=== PATIENT | male | born 1975 ===

== ENCOUNTER 2021-01-06 15:21 | Outpatient (REF) | payer MEDICAID, OTHER, SELFPAY ==
--- NOTE | ~2021-01-06 | US_ITS ---
EXAMINATION: US ABDOMEN COMPLETE CLINICAL INFORMATION: Abnormal results of LFTs. COMPARISON: None TECHNIQUE: Real-time imaging of the abdominal viscera. Technically limited study secondary to bowel gas. FINDINGS: PANCREAS: Not well visualized due to bowel gas. ABDOMINAL AORTA: The proximal abdominal aorta is not well visualized. The mid distal segments are normal in caliber. INFERIOR VENA CAVA: Not well visualized LIVER: The liver is normal in size. The liver contour is normal. Liver echotexture is increased suggestive of fatty infiltration. There are hypoechoic areas adjacent to the gallbladder, a characteristic location of focal fatty sparing. No other focal hepatic lesion. There is no intrahepatic biliary duct dilatation seen. GALLBLADDER: Normal. The gallbladder is physiologically distended without evidence of stones, sludge, polyps, wall thickening or pericholecystic fluid. COMMON BILE DUCT: Not well visualized. The visualized common bile duct is normal in caliber measuring 0.5 cm in diameter. RIGHT KIDNEY: Normal. No hydronephrosis. No renal calculi or focal parenchymal lesions. The kidney measures 11.6 cm in maximum dimension. LEFT KIDNEY: Normal. No hydronephrosis. No renal calculi or focal parenchymal lesions. The kidney measures 11.0 cm in maximum dimension. SPLEEN: Normal. The spleen measures 11.0 cm in maximum dimension. FREE FLUID: None. US/US abdomen complete IMPRESSION: Echogenic liver suggestive of fatty infiltration. Limited visualization of the pancreas, aorta, IVC and common bile duct.
== END 2021-01-06 15:22 | disposition home or self-care (01) ==
LOC: HO.HMGCX 15:21
PROVIDERS: PCP Student in an Organized Health Care Education/Training Program; Visit Provider Internal Medicine
DX: R94.5 Abnormal results of liver function studies (principal)
CPT/HCPCS: 76700

== ENCOUNTER 2023-02-21 09:27 | Outpatient (REF) | payer MEDICAID, OTHER, SELFPAY | END 2023-02-21 09:28 | disposition home or self-care (01) | LOC: HO.CHCLNP 09:27 | PROVIDERS: Visit Provider Registered Nurse | DX: K21.9 Gastro-esophageal reflux disease without esophagitis (principal); Z86.19 Personal history of other infectious and parasitic diseases | CPT/HCPCS: 87338 ==

== ENCOUNTER 2023-02-25 06:49 | Emergency (ER) | payer MEDICAID, OTHER, SELFPAY ==
--- NOTE | ~2023-02-25 | CT_ITS ---
EXAMINATION: CT ABDOMEN AND PELVIS WITH CONTRAST CLINICAL INFORMATION: Rectal pain COMPARISON: None available. TECHNIQUE: Multidetector volumetric images were obtained from the superior aspect of the liver through the pubic symphysis following administration 85 mL of Omnipaque 350 intravenous contrast. Sagittal and coronal reformatted images were obtained on the technologist's workstation. Oral contrast: No This CT examination was performed using dose optimization techniques as appropriate, variously including the following: *Automated exposure control *Adjustment of mA and/or kV according to patient size (this includes techniques or standardized protocols for targeted exams where dose is matched to indication/reason for exam; i.e. extremities or head) *Use of iterative reconstruction technique DLP: 618 mGy-cm FINDINGS: LUNG BASES: Granuloma of the right middle lobe. Small atelectatic changes of the right lower lobe. LIVER, GALLBLADDER, AND BILIARY TREE: Tiny hepatic hypodense foci, too small to characterize. The gallbladder is unremarkable with no evidence of radiopaque gallstones, gallbladder wall thickening, or obvious pericholecystic inflammatory changes. PANCREAS: Unremarkable. SPLEEN: Unremarkable. ADRENAL GLANDS: Unremarkable. KIDNEYS AND URETERS: Tiny nephrolith in the lower pole of the right kidney, nonobstructive. BLADDER: Unremarkable. GASTROINTESTINAL TRACT: Appendix and distal ileum unremarkable. No distinct colonic inflammatory process. No definite evidence for rectal wall thickening. Small sliding-type hiatal hernia. No small bowel obstructive process or abnormal omental thickening. ABDOMINAL WALL: No significant hernia is appreciated. LYMPH NODES: No suspiciously enlarged lymphadenopathy. VASCULAR: Unremarkable. PELVIC VISCERA: No suspicious pelvic masses. OSSEOUS STRUCTURES: Spondylitic change, without any acute compression fractures. Occasional sclerotic foci of bone likely related to bone islands. CT/CT abdomen pelvis w IV con IMPRESSION: No appreciable acute colonic inflammatory process. No definite evidence for rectal wall thickening. Tiny nephrolith in the lower pole of the right kidney, nonobstructive. Other incidental findings as noted above. Fleischner guidelines were followed.
[2023-02-25 06:59] VITALS: BP 149/99; PULSE 101; RESP 16; TEMP 36.4; O2SAT 97; BMI 31.2
--- NOTE | 2023-02-25 07:18 | ED_ITS ---
HPI - General Adult General Chief complaint: General Medical Stated complaint: pain when defecating? liquid stool Time Seen by Provider: 02/25/23 07:04 Source: patient and medical services manager Mode of arrival: ambulatory Limitations: no limitations History of Present Illness HPI narrative: 47 yo male with PMH of gastritis and HTN who notes receptive anal sex about 1 month ago did use a condom now reports anal leakage and rectal burning and pain with some lower abdominal discomfort. This has never happened before. No fevers, n/v/d. He notes his rectum just leaks and he feels uncomfortable. MD complaint: anal pain Onset (ago): week(s) (1) Location: buttocks Radiation: non-radiation Severity: moderate Quality: burning Pain Consistency: intermittent Relieving factors: none Exacerbating factors: other (bowel movement) Associated symptoms: other (abdominal pain) Treatments prior to arrival: none Related Data Previous Rx's Medication Instructions Recorded doxycycline hyclate 100 mg capsule 100 mg PO BID 7 days #14 caps 02/25/23 ondansetron 4 mg disintegrating 4 mg PO Q8H PRN nausea and 02/25/23 tablet vomiting #20 tabs Allergies Allergy/AdvReac Type Severity Reaction Status Date / Time No Known Allergies Allergy Verified 02/25/23 07:03 Review of Systems 2 Review of Systems: Constitutional : No Weight loss, No Fever, No Chills ENT/Mouth : No sore throat, No Rhinorrhea Eyes: No Swelling, No Redness Cardiovascular : No Chest Pain, No SOB, NoEdema Respiratory : No Cough, No Sputum, No Wheezing Gastrointestinal : no Nausea, no Vomiting, no Diarrhea, positive abdominal Pain, No Hematochezia, No Melena, pos rectal pain Genitourinary : No Dysuria, No Urinary Frequency, No Hematuria, No Urgency Musculoskeletal : No joint pain, No Myalgias, No Joint Swelling Skin : No Skin Lesions, No rash Neuro : No Weakness, No Numbness, No Dizziness, No Headache Psych : No Anxiety/Panic, No Depression All other systems reviewed and are negative. [facility] Past Medical History Attestation statement: The following information was validated with the patient. Medical History Gastritis HTN (hypertension) Social History (Updated 02/25/23 @ 07:35 by Meme Watson DO) Patient Tobacco Use Status: Never used Tobacco Advance Directives: No Physical Exam ED Vital Signs: Vital Signs - 24 hr 02/25/23 06:59 02/25/23 10:19 02/25/23 12:11 Temperature 97.5 F Pulse Rate 101 H 66 89 Respiratory Rate 16 14 16 Blood Pressure 149/99 H 133/86 129/88 Pulse Oximetry 97 96 97 Oxygen Delivery Method Room Air Room Air Room Air BMI result Body Mass Index 31.2 Appearance: Alert. Oriented X3. No acute distress. Eyes: Pupils equal, round and reactive to light. ENT: Pharynx normal. Neck: Normal inspection. Neck supple. CVS: Normal heart rate and rhythm. Pulses normal. Respiratory: No respiratory distress. Breath sounds normal. Abdomen: Soft and nontender. Rectal: normal exam no mass seen no drainage on exam nontender mucosa is normal Skin: Skin warm and dry. Normal skin color. Normal skin turgor. Extremities: No lower extremity edema. No calf ttp Neuro: Oriented X 3. No motor deficit. No sensory deficit. Course Course Course Narrative: I think given symptoms would start on ceftriaxone and doxy to cover him can follow up with his doctor Medications Administered Discontinued Medications Generic Name Dose Route Start Last Admin Trade Name Freq PRN Reason Stop Dose Admin Ceftriaxone Sodium 500 mg/ 0 mg 02/25/23 12:01 02/25/23 12:10 Lidocaine HCl 1 ml IM 02/25/23 12:02 1 kit ONCE ONE Administration Doxycycline Monohydrate 100 mg 02/25/23 12:01 02/25/23 12:10 Doxycycline Monohydrate 100 Mg Capsule PO 02/25/23 12:02 100 mg ONCE ONE Administration Iohexol 150 ml 02/25/23 09:16 02/25/23 09:17 Iohexol 350 Mg/Ml 150 Ml Infus..Btl IV 02/25/23 09:17 85 ml ONCE ONE Administration Medical Decision Making Medical Decision Making MDM Narrative: 47 yo male with PMH of HTN, gastritis here with c/o rectal burning and pain with leakage from anus did have anal intercourse about 1 month ago but used a condom. He is not a DM. His exam is normal but pain is internal. At this time will obtain basic labs, CT scan for abscess/proctitis/mass. Differential Diagnosis Differential Diagnoses: The differential diagnosis associated with the presentation includes abscess, mass, proctitis Admission/Observation Consideration of admission/observation: Escalation of care including admission/observation considered CT scan and labs reassuring Lab Data MDM Lab Attestation statement: I reviewed the patient's lab results. 02/25/23 07:31 02/25/23 07:31 Labs: Lab Results 02/25/23 Range/Units 07:31 WBC 5.7 (4.8-10.8) X10*3/uL RBC 5.17 (4.60-5.80) X10*6/uL Hgb 15.9 (14.0-18.0) g/dl Hct 46.0 (42.0-52.0) % MCV 89.0 (80.0-98.0) fL MCH 30.8 (27.0-33.0) pg MCHC 34.6 (31.0-36.0) g/dl RDW 12.4 (11.0-16.0) % Plt Count 175 (160-400) X10*3/uL MPV 9.9 (9.4-12.4) fL Immature Gran % (Auto) 0.2 (0.0-0.4) % Neut % (Auto) 57.7 (45-73) % Lymph % (Auto) 36.4 (20-40) % Swain % (Auto) 4.1 (2-11) % Eos % (Auto) 0.7 (0-4) % Baso % (Auto) 0.9 (0-2) % Lymph # (Auto) 2.1 (1.2-4.9) X10*3/uL Swain # (Auto) 0.2 (0.1-1.2) X10*3/uL Eos # (Auto) 0.0 (0.0-0.4) X10*3/uL Baso # (Auto) 0.1 (0.0-0.2) X10*3/uL Abs Immat Gran (auto) 0.01 (0.00-0.03) X10*3/uL Absolute Neuts (auto) 3.3 (2.0-8.3) x10*3/uL Absolute Nucleated RBC 0.000 (0.0-0.012) X10*3/uL Nucleated RBC % (auto) 0.0 (0.0-0.2) /100WBC Sodium 140 (135-145) mmol/L Potassium 3.6 (3.3-5.1) mmol/L Chloride 101 (96-108) mmol/L Carbon Dioxide 30 H (22-29) mmol/L Anion Gap 13 (12-20) BUN 15 (9-16) mg/dL Creatinine 0.87 (0.5-1.4) mg/dL Estim Creat Clear Calc 100.6 Estimated GFR > 60 Random Glucose 137 H (60-115) mg/dL Calcium 9.9 (8.4-10.2) mg/dL Total Bilirubin 1.0 (0.0-1.0) mg/dL Direct Bilirubin 0.3 (0.0-0.5) mg/dL AST 15 (5-37) U/L ALT 25 (0-40) U/L Alkaline Phosphatase 94 (39-117) U/L Total Protein 8.2 H (6.5-8.0) g/dL Albumin 4.7 (3.5-5.0) g/dL Independent Interpretation I performed an independent interpretation of an: CT Scan (no inflammation) Radiology Impression Discussion of test interpretation with radiology: I have reviewed the radiologist's reading. Prescription Management I considered prescription management with: Antibiotic Discharge Plan Discharge Clinical Impression: Pain in rectum Patient Disposition: Home, Self-Care Instructions: Proctitis (ED), Rectal Pain (ED) Additional Instructions: return for worsening pain, fevers, vomiting, bloody stools, take your antibiotic with a full meal and large glass of water, never on empty stomach. will treat for possible reaction or symptoms due to anal sex. always practice safe sex. On doxycycline, do not take pills immediately before going to bed and swallow pills with plenty of water. Avoid direct sunlight, iron, antacids, and Pepto Bismol. Call your provider if you develop new ringing in your ears, new problems hearing, dizziness, difficulty swallowing, rash, abdominal discomfort, nausea, or diarrhea.? Si regresa si el dolor empeora, tiene fiebre, v?mitos o heces con laura, tome el antibi?ladarius con akin comida completa y un vaso rex de agua, nunca con el est?slim vac?o. Tratar? posibles reacciones o s?ntomas debido al sexo anal. Practique siempre el sexo seguro. En el ranjeet de doxiciclina, no tome las pastillas inmediatamente antes de acostarse y tr?guelas con abundante agua. Evite la gilberto solar directa, el yadira, los anti?cidos y el Pepto Bismol. Llame a salgado proveedor si presenta nuevos zumbidos en los o?dos, nuevos problemas de audici?n, mareos, dificultad para tragar, sarpullido, malestar abdominal, n?useas o diarrea. Prescriptions: New doxycycline hyclate 100 mg capsule 100 mg PO BID 7 Days Qty: 14 0RF ondansetron 4 mg tablet,disintegrating 4 mg PO Q8H PRN (Reason: nausea and vomiting) Qty: 20 0RF Interventions: ED Discharge Assessment Last Done: 02/25/23 12:20 Discharge Date/Time: 02/25/23 12:22 Print Language: Sinhala
[2023-02-25 07:36] LABS: MANUAL DIFF FLAG NO
[2023-02-25 07:40] LABS: Basophils Absolute Auto 0.1 X10*3/uL (0.0-0.2); Basophils Percent Auto 0.9 % (0-2); Eosinophils Percent Auto 0.7 % (0-4); Hemoglobin 15.9 g/dl (14.0-18.0); Imm Gran Abs Auto 0.01 X10*3/uL (0.00-0.03); Imm Gran Pct Auto 0.2 % (0.0-0.4); Lymphocytes Absolute Auto 2.1 X10*3/uL (1.2-4.9); Lymphocytes Percent Auto 36.4 % (20-40); Mean Corpuscular HGB Conc 34.6 g/dl (31.0-36.0); Mean Corpuscular Hemoglobin 30.8 pg (27.0-33.0); Mean Platelet Volume 9.9 fL (9.4-12.4); Monocytes Absolute Auto 0.2 X10*3/uL (0.1-1.2); Monocytes Percent Auto 4.1 % (2-11); Neutrophils Absolute Auto 3.3 x10*3/uL (2.0-8.3); Neutrophils Percent Auto 57.7 % (45-73); Platelet Count 175 X10*3/uL (160-400); Red Blood Count 5.17 X10*6/uL (4.60-5.80); Red Cell Distribution Width 12.4 % (11.0-16.0); White Blood Count 5.7 X10*3/uL (4.8-10.8)
[2023-02-25 07:50] LABS: Alanine Aminotransferase 25 U/L (0-40); Albumin Level 4.7 g/dL (3.5-5.0); Alkaline Phosphatase 94 U/L (39-117); Anion Gap 13 (12-20); Aspartate Amino Transferase 15 U/L (5-37); Bilirubin Direct 0.3 mg/dL (0.0-0.5); Blood Urea Nitrogen 15 mg/dL (9-16); Calcium 9.9 mg/dL (8.4-10.2); Carbon Dioxide 30 mmol/L (22-29); Chloride 101 mmol/L (96-108); Creatinine Clr Calc Pharmacy 100.6; Estimated Glomerular Filt Rate > 60; Glucose Random 137 mg/dL (60-115); Potassium 3.6 mmol/L (3.3-5.1); Sodium 140 mmol/L (135-145); Total Protein 8.2 g/dL (6.5-8.0)
[2023-02-25 10:19] VITALS: BP 133/86; PULSE 66; RESP 14; O2SAT 96
[2023-02-25] MEDS: Doxycycline Monohydrate 100 MG CAPSULE PO (12:10)
[2023-02-25] MEDS: cefTRIAXone sodium 500 MG, Lidocaine HCl 1 % MPF 1 ML IM (12:10)
[2023-02-25 12:11] VITALS: BP 129/88; PULSE 89; RESP 16; O2SAT 97
== END 2023-02-25 12:22 | disposition home or self-care (01) ==
PROVIDERS: Emergency Provider Emergency Medicine; PCP Student in an Organized Health Care Education/Training Program
DX: K62.89 Other specified diseases of anus and rectum (principal); R10.30 Lower abdominal pain, unspecified; Z79.899 Other long term (current) drug therapy
CPT/HCPCS: 36415; 74177; 80048; 80076; 85025; 96372; 99284; J0696; Q9967

== ENCOUNTER 2023-04-16 05:34 | Emergency (ER) | payer MEDICAID, OTHER, SELFPAY ==
[2023-04-16 05:42] VITALS: BP 148/83; PULSE 80; RESP 18; TEMP 37.1; O2SAT 98; BMI 31.4
[2023-04-16 06:06] LABS: Basophils Percent Auto 0.7 % (0-2); Eosinophils Absolute Auto 0.1 X10*3/uL (0.0-0.4); Eosinophils Percent Auto 1.6 % (0-4); Hematocrit 43.1 % (42.0-52.0); Hemoglobin 15.1 g/dl (14.0-18.0); Imm Gran Abs Auto 0.02 X10*3/uL (0.00-0.03); Imm Gran Pct Auto 0.4 % (0.0-0.4); Lymphocytes Absolute Auto 2.2 X10*3/uL (1.2-4.9); Lymphocytes Percent Auto 39.9 % (20-40); MANUAL DIFF FLAG NO; Mean Corpuscular Volume 88.5 fL (80.0-98.0); Mean Platelet Volume 10.1 fL (9.4-12.4); Monocytes Absolute Auto 0.3 X10*3/uL (0.1-1.2); Monocytes Percent Auto 5.2 % (2-11); Neutrophils Absolute Auto 2.9 x10*3/uL (2.0-8.3); Neutrophils Percent Auto 52.2 % (45-73); Platelet Count 160 X10*3/uL (160-400); Red Blood Count 4.87 X10*6/uL (4.60-5.80); Red Cell Distribution Width 12.3 % (11.0-16.0); White Blood Count 5.6 X10*3/uL (4.8-10.8)
[2023-04-16 06:22] LABS: Alanine Aminotransferase 30 U/L (0-40); Albumin Level 4.3 g/dL (3.5-5.0); Alkaline Phosphatase 110 U/L (39-117); Anion Gap 11 (12-20); Aspartate Amino Transferase 16 U/L (5-37); Bilirubin Total 0.4 mg/dL (0.0-1.0); Blood Urea Nitrogen 16 mg/dL (9-16); Calcium 9.7 mg/dL (8.4-10.2); Carbon Dioxide 29 mmol/L (22-29); Chloride 104 mmol/L (96-108); Creatinine Clr Calc Pharmacy 121.2; Estimated Glomerular Filt Rate > 60; Glucose Random 129 mg/dL (60-115); Lipase 46 U/L (8-78); Potassium 3.9 mmol/L (3.3-5.1); Sodium 140 mmol/L (135-145); Total Protein 7.9 g/dL (6.5-8.0)
--- NOTE | 2023-04-16 07:03 | ED.GENADULT ---
HPI - General Adult General Chief complaint: Abdominal Pain Stated complaint: Abd pain Time Seen by Provider: 04/16/23 07:03 History of Present Illness HPI narrative: The patient is a very pleasant 47-year-old male presents to the emergency room with what seemed to be 2 complaints. He complains of generalized abdominal discomfort that he describes his gastritis. He says he takes omeprazole but despite taking omeprazole he continues to have very frequent episodes of a burning in his abdomen generally. He also feels that he is constipated. He also feels that he has liquid or humidity at his rectum and that sometimes he passes liquid through his rectum unexpectedly. He denies any actual rectal pain. The patient was last seen here for rectal complaints on February 25. The patient was thought to possibly have proctitis at that time although CT scan of the abdomen and pelvis did not show any significant findings. He was treated with doxycycline. He says that he has not had any receptive anal intercourse since that time. No new sexual contacts, he has not been sexually active for several months he says. No fevers. He says that he describes his abdominal symptoms to coworkers who said that he needs to get his liver checked or possibly his pancreas. He gets very nervous about this. Patient says that he has been having trouble getting seen by a it desktop support technician because his insurance does not allow him to see local specialists. Related Data Previous Rx's Medication Instructions Recorded doxycycline hyclate 100 mg capsule 100 mg PO BID 7 days #14 caps 02/25/23 ondansetron 4 mg disintegrating 4 mg PO Q8H PRN nausea and 02/25/23 tablet vomiting #20 tabs sucralfate 1 gram tablet 1 g PO BID PRN abdominal pain #60 04/16/23 tabs sucralfate 1 gram tablet 1 g PO TID PRN abdominal pain #60 04/16/23 tabs Allergies Allergy/AdvReac Type Severity Reaction Status Date / Time No Known Allergies Allergy Verified 02/25/23 07:03 Review of Systems Review of Systems: Yes all other systems are reviewed and are negative PMFSH Past Medical History Onset Date is defined in the Problem List Problems that require an onset date and time if occurred within 24 hrs of arrival to the ED Aortic Dissection and Rupture; Neurologic impairment; Cardiopulmonary Arrest; Endotracheal Intubation; Insertion or Replacement of Mechanical Circulatory Assist Device Medical History Gastritis HTN (hypertension) Social History Social History (Updated 02/25/23 @ 07:35 by Meme Watson DO) Patient Tobacco Use Status: Never used Tobacco Advance Directives: No Advance Directives Information Provided: Yes Physical Exam ED Vital Signs: Vital Signs - 24 hr 04/16/23 05:42 04/16/23 07:48 Temperature 98.7 F 97.8 F Pulse Rate 80 62 Respiratory Rate 18 18 Blood Pressure 148/83 H 122/79 Pulse Oximetry 98 92 Oxygen Delivery Method Room Air Room Air BMI result Body Mass Index 31.4 Const Other: The patient is awake, alert, pleasant, cooperative. He does not appear ill or in distress. HENMT Other: Face is symmetrical. Mucous membranes moist. Resp Effort & Inspection: normal respiratory effort Auscultation: clear to auscultation bilaterally Cardio Rate: regular rate Rhythm: regular rhythm Heart sounds: S1 normal heart sound present and S2 normal heart sound present GI Other: The patient's abdomen was soft and not significantly tender. Rectal exam revealed no masses or abnormalities or tenderness. Skin Other: Skin is warm and dry. Unremarkable. Neuro Other: Awake, alert, appropriate, grossly neurologically intact. Extrem Other: No peripheral edema. Medical Decision Making Medical Decision Making MDM Narrative: The patient is a 47-year-old male who is here with abdominal discomfort and also some rectal complaints. He has a history of receptive anal intercourse but says he has not had any sexual intercourse in several months. Specifically has not had any intercourse since his last ER visit here when he was seen for rectal and anal complaints. He had a negative CT at that time. There was no sign of perirectal inflammatory changes of any kind. He was put on doxycycline at that time. He has not had any intercourse since then. Clinically the patient looks well. His labs are unremarkable. My suspicion for an acute process is quite low. I think there is some degree of an anxiety component to his presentation today. His complaints seem to some degree subacute. I think he needs to follow up with his regular doctor and I think he probably also needs a follow-up with Gastroenterology. Lab Data 04/16/23 06:00 04/16/23 06:00 Labs: Lab Results 04/16/23 Range/Units 06:00 WBC 5.6 (4.8-10.8) X10*3/uL RBC 4.87 (4.60-5.80) X10*6/uL Hgb 15.1 (14.0-18.0) g/dl Hct 43.1 (42.0-52.0) % MCV 88.5 (80.0-98.0) fL MCH 31.0 (27.0-33.0) pg MCHC 35.0 (31.0-36.0) g/dl RDW 12.3 (11.0-16.0) % Plt Count 160 (160-400) X10*3/uL MPV 10.1 (9.4-12.4) fL Immature Gran % (Auto) 0.4 (0.0-0.4) % Neut % (Auto) 52.2 (45-73) % Lymph % (Auto) 39.9 (20-40) % Amite % (Auto) 5.2 (2-11) % Eos % (Auto) 1.6 (0-4) % Baso % (Auto) 0.7 (0-2) % Lymph # (Auto) 2.2 (1.2-4.9) X10*3/uL Amite # (Auto) 0.3 (0.1-1.2) X10*3/uL Eos # (Auto) 0.1 (0.0-0.4) X10*3/uL Baso # (Auto) 0.0 (0.0-0.2) X10*3/uL Abs Immat Gran (auto) 0.02 (0.00-0.03) X10*3/uL Absolute Neuts (auto) 2.9 (2.0-8.3) x10*3/uL Absolute Nucleated RBC 0.000 (0.0-0.012) X10*3/uL Nucleated RBC % (auto) 0.0 (0.0-0.2) /100WBC Sodium 140 (135-145) mmol/L Potassium 3.9 (3.3-5.1) mmol/L Chloride 104 (96-108) mmol/L Carbon Dioxide 29 (22-29) mmol/L Anion Gap 11 L (12-20) BUN 16 (9-16) mg/dL Creatinine 0.75 (0.5-1.4) mg/dL Estim Creat Clear Calc 121.2 Estimated GFR > 60 Random Glucose 129 H (60-115) mg/dL Calcium 9.7 (8.4-10.2) mg/dL Total Bilirubin 0.4 (0.0-1.0) mg/dL AST 16 (5-37) U/L ALT 30 (0-40) U/L Alkaline Phosphatase 110 (39-117) U/L C-Reactive Protein 0.32 (< or = 0.50) mg/dL Total Protein 7.9 (6.5-8.0) g/dL Albumin 4.3 (3.5-5.0) g/dL Lipase 46 (8-78) U/L Discharge Plan Discharge Clinical Impression: Abdominal pain, Gastritis, Rectal discomfort Patient Disposition: Home, Self-Care Additional Instructions: I have sent a prescription to your pharmacy for a medication called sucralfate. This may help with the burning sensations you get in your stomach. This is used to treat additional symptoms of gastritis in addition to omeprazole. You may use this medication on an as-needed basis. I think it may also be helpful for you to take a laxative for several days to make sure that you are not constipated. I would recommend taking MiraLax daily. This can be bought [id number]. There is usually a store brand of polyethylene glycol that will be less expensive than the brand name of MiraLax. Please follow-up soon with your regular doctor. I think it would be very helpful for you to see a it desktop support technician even if you have to travel out of town to see 1. Please talk to your doctor about a referral. Return to the emergency room if significantly worse. Prescriptions: New sucralfate 1 gram tablet 1 g PO BID PRN (Reason: abdominal pain) Qty: 60 0RF sucralfate 1 gram tablet 1 g PO TID PRN (Reason: abdominal pain) Qty: 60 0RF No Action doxycycline hyclate 100 mg capsule 100 mg PO BID 7 Days Qty: 14 0RF ondansetron 4 mg tablet,disintegrating 4 mg PO Q8H PRN (Reason: nausea and vomiting) Qty: 20 0RF Referrals: Siena Dumas MD [Physician] - (gastritis, rectal discomfort) Interventions: ED Discharge Assessment Last Done: 04/16/23 08:01 Discharge Date/Time: 04/16/23 08:02
[2023-04-16 07:48] VITALS: BP 122/79; PULSE 62; RESP 18; TEMP 36.6; O2SAT 92
[2023-04-16 08:01] LABS: C Reactive Protein 0.32 mg/dL (< or = 0.50)
== END 2023-04-16 08:02 | disposition home or self-care (01) ==
PROVIDERS: Emergency Provider Emergency Medicine
DX: R10.9 Unspecified abdominal pain (principal); K29.70 Gastritis, unspecified, without bleeding; K62.89 Other specified diseases of anus and rectum; I10 Essential (primary) hypertension
CPT/HCPCS: 36415; 80053; 83690; 85025; 86140; 99283

== ENCOUNTER 2023-06-25 07:40 | Emergency (ER) | payer MEDICAID, OTHER, SELFPAY ==
[2023-06-25 08:02] VITALS: BP 147/87; PULSE 71; RESP 20; TEMP 36.9; O2SAT 99; BMI 30.9
--- NOTE | 2023-06-25 08:18 | ED_ITS ---
HPI - General Adult General Chief complaint: General Medical Stated complaint: anal discomfort Time Seen by Provider: 06/25/23 08:01 Source: patient and hydrometer calibrator Mode of arrival: ambulatory Limitations: no limitations History of Present Illness HPI narrative: A 48-year-old male speaking otherwise healthy presented for evaluation of feeling anal hotness and feel anal witness with a mucous discharge. Patient's symptoms started about 4 weeks ago it is intermittent, declined rectal or anal pain however describe it as hotness in the rectal area, had a normal bowel movement, patient mostly heterosexual with monogamous relationship with his nevertheless, had 2 anal sex experiences in his life describe it as protected sex with somebody is known to him to be healthy. Related Data Previous Rx's Medication Instructions Recorded doxycycline hyclate 100 mg capsule 100 mg PO BID 7 days #14 caps 02/25/23 ondansetron 4 mg disintegrating 4 mg PO Q8H PRN nausea and 02/25/23 tablet vomiting #20 tabs sucralfate 1 gram tablet 1 g PO BID PRN abdominal pain #60 04/16/23 tabs sucralfate 1 gram tablet 1 g PO TID PRN abdominal pain #60 04/16/23 tabs doxycycline hyclate 100 mg tablet 100 mg PO BID #14 tabs 06/25/23 Allergies Allergy/AdvReac Type Severity Reaction Status Date / Time No Known Allergies Allergy Verified 06/25/23 08:05 Review of Systems Review of Systems: all other systems are reviewed and are negative Constitutional: Reports as per HPI and Reports no additional constitutional complaints Eyes: Reports as per HPI and Reports no additional eye complaints Reports system reviewed and no additional complaints, except as documented Cardiovascular: Reports as per HPI and Reports no additional cardiovascular complaints Respiratory: Reports as per HPI and Reports no additional respiratory complaints Gastrointestinal: Reports as per HPI and Reports no additional gastrointestinal complaints Genitourinary: Reports no additional female genitourinary complaints Musculoskeletal: Reports no additional musculoskeletal complaints Skin/Breast: Reports system reviewed and no additional complaints, except as docu Psychiatric: Reports no additional psychiatric complaints Endocrine: Reports no additional endocrine complaints Hematologic/Lymphatic: Reports no additional hematologic/lymphatic complaints Allergic/Immunologic: Reports no additional allergic/immunologic complaints Reports system reviewed and no additional complaints, except as documented and Reports Abnormal [facility] Past Medical History Medical History Gastritis HTN (hypertension) Social History Social History Patient Tobacco Use Status: Never used Tobacco Advance Directives: No Physical Exam ED Vital Signs: Vital Signs - 24 hr 06/25/23 08:02 Temperature 98.5 F Pulse Rate 71 Respiratory Rate 20 Blood Pressure 147/87 H Pulse Oximetry 99 Oxygen Delivery Method Room Air BMI result Body Mass Index 30.9 Vital signs have been reviewed and appear to be correct. Blood pressure elevated. Heart rate normal. Respiratory rate normal. Temperature normal. Oxygen saturation normal. Appearance: Alert. Oriented X3. No acute distress. Head: Normal external exam. Normocephalic. Atraumatic. No Brown signs noted. No raccoon eyes noted Eyes: PERRLA. EOMI. Conjunctiva and sclera normal. Eyelids normal. ENT: TM's Normal. Pharynx normal. Uvula midline. Moist mucous membranes. No trismus noted. No drooling noted. No muffled voice noted. Neck: Normal inspection. Neck supple. FROM. No adenopathy. Thyroid Normal. No meningeal signs. No neck mass noted. CVS: Normal heart rate and rhythm. Heart sound normal. No murmurs noted. Pulses normal throughout. Respiratory: No respiratory distress. Painless inspiration. Breath sounds normal. No wheezes/rales/rhonchi noted. Chest nontender. No accessory muscle usage noted or decreased air movement noted. Abdomen: Soft and nontender. Bowel sounds normal in all 4 quadrants. No distention noted. No organomegaly noted. No visible injury noted. Rectal exam: Normal inspection with no rash, ulcerative lesion, or fluctuation. No tenderness, no visible external hemorrhoids or palpable internal hemorrhoid, no discharge. Back: No CVA tenderness. Full range of motion noted. Skin: Skin warm and dry. Normal skin color. Normal skin turgor. No rashes/lesions/lacerations noted. Extremities: No lower extremity edema. Extremities exhibit normal range of motion. Extremities nontender. Neuro: Oriented X 3. Cranial nerve exam: II-XII are grossly intact No motor deficit. No sensory deficit. Reflexes normal. Course Reevaluation(s) Reevaluation #1: Rectal culture for GC/ chlamydia were sent and pending results will not be available today since it is a send out test. Patient opted treatment today will receive 1 dose of IM ceftriaxone and 7 days' course of doxycycline. Time: 10:12 Medical Decision Making Differential Diagnosis Differential Diagnoses: The differential diagnosis associated with the presentation includes ( rectal abscess, complicated hemorrhoid, STD.) Admission/Observation Consideration of admission/observation: Escalation of care including admission/observation considered Lab Data MDM Lab Attestation statement: I reviewed the patient's lab results. Labs: Lab Results 06/25/23 Range/Units 09:37 Urine Color Yellow Urine Appearance Clear Urine pH 8.5 (5.0-9.0) Ur Specific [place] 1.020 (1.005-1.025) Urine Protein Trace (Neg-Trace) mg/dL Urine Glucose (UA) Negative (Negative) mg/dL Urine Ketones Negative (Negative) mg/dL Urine Blood Negative (Negative) Urine Nitrite Negative (Negative) Ur Leukocyte Esterase Negative (Negative) Discharge Plan Discharge Clinical Impression: Anal pain, Concern about STD in male without diagnosis Patient Disposition: Home, Self-Care Instructions: Sexually Transmitted Diseases (ED) Additional Instructions: continue with the antibiotic as discussed. Call your doctor in 2-3 days to check on the test results, we usually call you back if the test is positive for sexually transmitted disease. Follow-up with your PCP. Avoid any sexual intercourse until the results of the testing is back. Prescriptions: New doxycycline hyclate 100 mg tablet 100 mg PO BID Qty: 14 0RF No Action doxycycline hyclate 100 mg capsule 100 mg PO BID 7 Days Qty: 14 0RF ondansetron 4 mg tablet,disintegrating 4 mg PO Q8H PRN (Reason: nausea and vomiting) Qty: 20 0RF sucralfate 1 gram tablet 1 g PO BID PRN (Reason: abdominal pain) Qty: 60 0RF sucralfate 1 gram tablet 1 g PO TID PRN (Reason: abdominal pain) Qty: 60 0RF
[2023-06-25 09:57] LABS: Appearance Urine Clear; Color Urine Yellow; Glucose Urine UA Negative (Negative); Leukocyte Esterase Urine Negative (Negative); Nitrite Urine Negative (Negative); PH 8.5 (5.0-9.0); Urine Blood Negative (Negative); Urine Ketones Negative (Negative); Urine Protein Trace mg/dL (Neg-Trace)
[2023-06-25] MEDS: cefTRIAXone sodium 250 MG, Lidocaine HCl 1 % MPF 0.9 ML IM (11:02)
[2023-06-25] MEDS: Doxycycline Monohydrate 100 MG CAPSULE PO (11:02)
[2023-06-25 11:06] VITALS: BP 160/97; PULSE 65; RESP 18; TEMP 36.8; O2SAT 97
[2023-06-25 12:07] LABS: CT PCR NOT DETECTED (Not Detect.); NG PCR NOT DETECTED (Not Detect.)
[2023-06-27 04:14] LABS: Syphilis Screen Nonreactive (Nonreactive)
== END 2023-06-25 11:07 | disposition home or self-care (01) ==
PROVIDERS: Emergency Provider Emergency Medicine
DX: K62.89 Other specified diseases of anus and rectum (principal); Z20.2 Contact with and (suspected) exposure to infections with a predominantly sexual mode of transmission; Z79.899 Other long term (current) drug therapy
CPT/HCPCS: 0353U; 36415; 81003; 86780; 87491; 87591; 96372; 99284; J0696

== ENCOUNTER 2023-07-04 13:50 | Outpatient (REF) | payer MEDICAID, OTHER, SELFPAY ==
[2023-07-04 15:53] LABS: Appearance Urine Clear; Color Urine Yellow; Glucose Urine UA Negative (Negative); Leukocyte Esterase Urine Negative (Negative); Nitrite Urine Negative (Negative); PH 7.5 (5.0-9.0); Specific Gravity - Urine <= 1.005 (1.005-1.025); Urine Blood Negative (Negative); Urine Ketones Negative (Negative); Urine Protein Negative (Neg-Trace)
[2023-07-04 15:59] LABS: Bacteria Urine None Seen (None Seen); Hyaline Casts Urine 0-2 /LPF (0-2); RBC Urine 0-2 /HPF (0-2); Squamous Epithelial Cell Urine 0-2 /HPF (0-2); WBC Urine 0-5 /HPF (0-5)
== END 2023-07-04 13:51 | disposition home or self-care (01) ==
LOC: HO.CHCLNP 13:50
PROVIDERS: Visit Provider Family Medicine
DX: N41.9 Inflammatory disease of prostate, unspecified (principal)
CPT/HCPCS: 81001

== ENCOUNTER 2023-07-08 14:52 | Outpatient (REF) | payer MEDICAID, OTHER, SELFPAY ==
[2023-07-08 18:15] LABS: PSA,Total (Free>4and<10) 1.02 ng/mL (0.00-4.00)
== END 2023-07-08 14:53 | disposition home or self-care (01) ==
LOC: HO.CHCLDS 14:52
PROVIDERS: Visit Provider Family Medicine
DX: Z12.5 Encounter for screening for malignant neoplasm of prostate (principal); L29.0 Pruritus ani
CPT/HCPCS: 36415; 84153

== ENCOUNTER 2024-02-09 13:20 | Outpatient (REF) | payer MEDICAID, OTHER, SELFPAY ==
[2024-02-09 14:56] LABS: MANUAL DIFF FLAG NO
[2024-02-09 15:01] LABS: Basophils Percent Auto 0.4 % (0-2); Eosinophils Percent Auto 0.5 % (0-4); Hematocrit 40.6 % (42.0-52.0); Hemoglobin 14.6 g/dl (14.0-18.0); Imm Gran Abs Auto 0.02 X10*3/uL (0.00-0.03); Imm Gran Pct Auto 0.3 % (0.0-0.4); Lymphocytes Percent Auto 25.5 % (20-40); Mean Corpuscular Hemoglobin 31.4 pg (27.0-33.0); Mean Corpuscular Volume 87.3 fL (80.0-98.0); Mean Platelet Volume 10.3 fL (9.4-12.4); Monocytes Absolute Auto 0.4 X10*3/uL (0.1-1.2); Monocytes Percent Auto 5.5 % (2-11); Neutrophils Absolute Auto 5.2 x10*3/uL (2.0-8.3); Neutrophils Percent Auto 67.8 % (45-73); Platelet Count 179 X10*3/uL (160-400); Red Blood Count 4.65 X10*6/uL (4.60-5.80); Red Cell Distribution Width 12.4 % (11.0-16.0); White Blood Count 7.7 X10*3/uL (4.8-10.8)
[2024-02-09 15:37] LABS: Erythrocyte Sedimentation Rate 16 MM/HR (0-15)
[2024-02-09 16:25] LABS: Alanine Aminotransferase 59 U/L (0-40); Albumin Level 4.6 g/dL (3.5-5.0); Alkaline Phosphatase 101 U/L (39-117); Anion Gap 13 (12-20); Aspartate Amino Transferase 33 U/L (5-37); Bilirubin Total 0.5 mg/dL (0.0-1.0); Blood Urea Nitrogen 12 mg/dL (9-16); C Reactive Protein 0.55 mg/dL (< or = 0.50); Calcium 9.8 mg/dL (8.4-10.2); Carbon Dioxide 28 mmol/L (22-29); Chloride 99 mmol/L (96-108); Cholesterol 219 mg/dL (<200); Estimated Glomerular Filt Rate > 60; Glucose Random 103 mg/dL (60-115); HDL Cholesterol 46 mg/dL (>40); LDL Cholesterol Calculated 149 mg/dL (<100); Potassium 3.3 mmol/L (3.3-5.1); Sodium 137 mmol/L (135-145); Total Protein 8.2 g/dL (6.5-8.0); Triglycerides 120 mg/dL (<150)
[2024-02-10 03:53] LABS: Syphilis Screen Nonreactive (Nonreactive)
[2024-02-10 04:13] LABS: HIV AB/AG Nonreactive (Nonreactive); HIV Num 1 0.08 S/CO (0.00-0.99); ~HepC Num1 0.12 S/CO (0.00-0.79); ~Hepatitis C Antibody Nonreactive (Nonreactive)
[2024-02-10 05:22] LABS: CT PCR NOT DETECTED (Not Detect.); NG PCR NOT DETECTED (Not Detect.)
[2024-02-10 16:38] LABS: Immunoglobulin A 247 mg/dL (47-310); Transglutaminase IgA <1.0 U/mL
== END 2024-02-09 13:21 | disposition home or self-care (01) ==
LOC: HO.CHCLDS 13:20
PROVIDERS: Visit Provider Family Medicine
DX: Z11.3 Encounter for screening for infections with a predominantly sexual mode of transmission (principal); R14.0 Abdominal distension (gaseous)
CPT/HCPCS: 36415; 80053; 80061; 82784; 85025; 85652; 86140; 86364; 86780; 86803; 87389; 87491; 87591

== ENCOUNTER 2024-02-27 14:39 | Outpatient (REF) | payer MEDICAID, OTHER, SELFPAY ==
[2024-03-08 18:44] LABS: Calprotectin, Fecal 33 mcg/g
== END 2024-02-27 14:40 | disposition home or self-care (01) ==
LOC: HO.CHCLDS 14:39
PROVIDERS: Visit Provider Family Medicine
DX: R14.0 Abdominal distension (gaseous) (principal)
CPT/HCPCS: 83993; 87338

== ENCOUNTER 2024-03-13 13:37 | Outpatient (REF) | payer MEDICAID, OTHER, SELFPAY ==
[2024-03-16 21:34] LABS: TS Negative Control Passed; TS Panel A 4; TS Panel B 2; TS Positive Control Passed; TSpotTB Negative (Negative)
== END 2024-03-13 13:38 | disposition home or self-care (01) ==
LOC: HO.CHCLDS 13:37
PROVIDERS: Visit Provider Family Medicine
DX: Z11.1 Encounter for screening for respiratory tuberculosis (principal)
CPT/HCPCS: 36415; 86481

== ENCOUNTER 2024-08-01 11:17 | Outpatient (REF) | payer MEDICAID, OTHER, SELFPAY ==
--- OUTSIDE RECORDS SUMMARY | 2024-08-01 12:57 | XMS_ITS | Referral Summary ---
Author Organization [facility] Address [address] [place] [address] Care Team Providers Care Pals Nurse Name Role Phone Siena Dumas Primary Care Provider [phone] Allergies No known active allergies Medications omeprazole (PriLOSEC) 20 mg capsule Take 20 mg by mouth daily. 5 8 Active simvastatin (ZOCOR) 10 mg tablet Take 10 mg by mouth every evening. 3 8 Active bismuth subsalicylate (PEPTO BISMOL) 262 mg/15 mL suspension Take 15 mL by mouth as needed for diarrhea (only when needed - not regularly). Active ARTIFICIAL TEARS,HH-[id number] , 1-0.2-0.2 % drops 0 Active ibuprofen (MOTRIN) 800 mg tablet Take 800 mg by mouth 3 times a day. 0 Active aspirin chewable tablet 81 mg Chew and swallow 81 mg by mouth once a day. Active Active Problems Problem Noted Date Diagnosed Date H. pylori infection 08/10/2018 Chronic abdominal pain 01/11/2018 Overview (01/11/2018): Added automatically from request for surgery [id number] Social History Tobacco Use Types Packs/Day Years Used Date Smoking Tobacco: Never Smokeless Tobacco: Never Alcohol Use Standard Drinks/Week Comments Never 0 (1 standard drink = 0.6 oz pur e alcohol) Sex and Gender Information Value Date Recorded Sex Assigned at Not on file Legal Sex Male 11:20 AM EDT Gender Identity Not on file Sexual Orientation Not on file Last Filed Vital Signs Vital Sign Reading Time Taken Comments Blood Pressure 125/93 12/14/2023 10:00 AM EDT Pulse 61 12/14/2023 10:00 AM EDT Temperature 36.4 ??C (97.5 ??F) 12/14/2023 9:44 AM ED T Respiratory Rate 20 12/14/2023 10:00 AM EDT Oxygen Saturation 94% 12/14/2023 9:44 AM EDT Inhaled Oxygen Concentration - - Weight 86.2 kg (190 lb) 11/17/2023 2:01 PM EDT Height 162.6 cm (5' 4 ) 11/17/2023 2:01 PM EDT Body Mass Index 32.61 11/17/2023 2:01 PM EDT Plan of Treatment Not on file Procedures * Due to [place] [employer] law, this organization might not be sharing negative HIV tests. Procedure Name Priority Date/Time Associated Diagnosis Comments COLONOSCOPY 12/14/2023 from Last 3 Months or Most Recently Relevant to Health Maintenance Results * Due to [place] [employer] law, this organization might not be sharing negative HIV tests. * COLONOSCOPY (12/14/2023) Narrative Procedure Note Ana Zapata, - 12/14/2023 8:35 AM EDT [facility] Patient Name: Irvin Loomis Procedure Date: 12/14/2023 8:35 AM Date of : 1975 Admit Type: Outpatient Age: 48 Room: Room 4 Gender: Male Note Status: Finalized Attending MD: Ana Zapata , Procedure: Colonoscopy Indications: Screening for colorectal malignant neoplasm Providers: Ana Zapata (Doctor) Referring MD: Siena Dumas MD (Referring MD) Requesting Provider: Medicines: Midazolam 3 mg IV, Fentanyl 100 micrograms IV Complications: No immediate complications. Estimated Blood Loss: Estimated blood loss: none. Procedure: Pre-Anesthesia Assessment: - Prior to the procedure, a History and Physicalwas performed, and patient medications and allergieswere reviewed. The patient is competent. The risks and benefits of the procedure and the sedation optionsand risks were discussed with the patient. Allquestions were answered and informed consent was obtained. Patient identification and proposed procedure were verified by the physician, the nurse and the lead quality control technician in the endoscopy suite. Mental Status Examination: alert and oriented. AirwayExamination: normal oropharyngeal airway and neck mobility. Respiratory Examination: clear to auscultation. CV Examination: normal. Prophylactic Antibiotics: The patient does not require prophylactic antibiotics. Prior Anticoagulants: The patient has taken no anticoagulant or antiplatelet agents. ASA Grade Assessment: I - A normal, healthy patient. After reviewing the risks and benefits, the patient was deemed in satisfactory condition to undergo the procedure. The anesthesia plan was to use moderate sedation / analgesia (conscious sedation).Immediately prior to administration of medications, the patient was re-assessed for adequacy to receive sedatives.The heart rate, respiratory rate, oxygen saturations, blood pressure, adequacy of pulmonary ventilation,and response to care were monitored throughout the procedure. The physical status of the patient was re-assessed after the procedure. After I obtained informed consent, the scope was passed under direct vision. Throughout theprocedure, the patient's blood pressure, pulse, and oxygen saturations were monitored continuously. [id number] was introduced through the anus andadvanced to the cecum, identified by appendiceal orifice and ileocecal valve. The colonoscopy was performedwithout difficulty. The patient tolerated the procedurewell. The quality of the bowel preparation was good. The terminal ileum, ileocecal valve, appendicealorifice, and rectum were photographed. The bowel preparation used was [employer]. Findings: The perianal and digital rectal examinations were normal. A 7 mm polyp and 4mm polyp were found in the hepatic flexure. Thepolyps were sessile. The polyps were removed with a cold biopsy forceps. Resection and retrieval were complete. Verification of patient identification for the specimen was done by the nurse and lead quality control technician. Estimated blood loss was minimal. The terminal ileum appeared normal. The retroflexed view of the distal rectum and anal verge was normaland showed no anal or rectal abnormalities. Moderate Sedation: Moderate (conscious) sedation was personally administered by the endoscopist. The following parameters were monitored: oxygensaturation, heart rate, blood pressure, and response to care. Impression: - One 7 mm polyp at the hepatic flexure, removedwith a cold biopsy forceps. Resected and retrieved. - One 4mm polyp at the hepatic flexure, removedwith cold biopsy forceps. Resected and retrieved. - The examined portion of the ileum was normal. - The distal rectum and anal verge are normal on retroflexion view. - The examined portion of the ileum was normal. Recommendation: - Discharge patient to home. - Resume previous diet. - Continue present medications. - Await pathology results. - Repeat colonoscopy in 5 years for surveillance. - Return to primary care physician PRN. Ana Zapata, 12/14/2023 9:46:55 AM This report has been signed electronically. Number of Addenda: 0 Note Initiated On: 12/14/2023 8:35 AM Ana Zapata DO PROVATION PROCEDURES Final Result from Last 3 Months or Most Recently Relevant to Health Maintenance Insurance [facility] HSNO/FREE CARE Advance Directives * Full Code (Latest Code Status on File) Date Activated Date Inactivated Comments 12/14/2023 8:50 AM 12/14/2023 12:40 PM Care Teams Pals Nurse Relationship Specialty Start Date End Date PiterHectorSiena [address] [place] [id number] PCP - General Family Medicine 10/21/17
--- OUTSIDE RECORDS SUMMARY | 2024-08-01 12:57 | XMS_ITS | Encounter Summary ---
Author Organization [employer] Address [address] [place] [address] Care Team Providers Care Bridge Worker Name Role Phone Claudia Wilcox MD Primary Care Provider [phone] Reason for Visit * Reason Onset Date Comments triage 07/31/2024 Encounter Details Date Type Department Care Team ([facility] st Contact Info) Description 07/31/2024 Telephone [facility] [address] [place], [place] [phone] Claudia Wilcox MD [address] [place] [address] triage Social History Tobacco Use Types Packs/Day Years Used Date Smoking Tobacco: Never Passive Smoke Exposure: Never Smokeless Tobacco: Never Alcohol Use Standard Drinks/Week Comments Yes 1 (1 standard drink = 0.6 oz pur e alcohol) Alcohol Answer Date Recorded Frequency of Alcohol Consumption Not on file 02/09/2024 Average Number of Drinks Not on file 024 Frequency of Binge Drinking Not on file 10/2023 Score 0 02/09/2024 Depression Answer Date Recorded Patient Health Questionnaire-9 Score 0 02/09/2024 Patient Health Questionnaire-9 Score 0 02/09/2024 Last PHQ-9: Questionnaire Data Not on file 1 04/10/2023 Housing Stability Answer Date Recorded What is your housing situation today? I have wicho sainz 02/09/[address] you li ve. Do you have problems with any of the following? None of the above 02/09/2024 Food Insecurity Answer Date Recorded Within the past 12 months, y ou worried that your food would run out before you got money to buy more: Never True 02/09/2024 Within the past 12 months,th e food you bought just didn't last and you didn't have enough money to get more: Never True 10/2023 Transportation Answer Date Recorded In the past 12 months, has l ack of transportation kept you from medical appts, meetings, work or from getting things needed for daily living? No 02/09/2024 Utilities Answer Date Recorded In the past 12 months, has t he electric, gas, oil or water company threatened to shut off services in your home? No 02/09/2024 Depression Answer Date Recorded Patient Health Questionnaire-2 Score 0 02/09/2024 Internet Access Answer Date Recorded Internet Access Q1 Yes 02/09/2024 Internet Access Q2 Not on file 02/09/2024 Sex and Gender Information Value Date Recorded Sex Assigned at Male 02/01/2022 10:15 AM EDT Legal Sex Male 10:15 AM EDT Gender Identity Male 02/01/2022 10:15 AM EDT Sexual Orientation Straight 07/01/2022 3: 01 PM EDT documented as of this encounter Miscellaneous Notes * Telephone Encounter - Jany Pompa RN - 07/31/2024 3:57 PM EDT Called pt. [facility] [employer] [facility] [id number] [address]. Pt. States that he has been having inflammation in his stomach and there is burning and a feeling of heat in his colon, rectum, and anus x few days. Pt.States that he suffers from Gastritis. Pt. Denies fever or vomiting. Pt. States does have very loose stools but no visible blood. Protocol Used: Rectal Symptoms (Adult) Protocol-Based Disposition: See in Office or Video Visit Today- Pt. Wants to be seen in [facility]. Appt. Made for 08/01/24 in [facility] [place] at 940am. Positive Triage Question: * Moderate-Severe rectal pain (i.e., interferes with school, work, or sleep) * All higher-acuity triage questions were negative Care Advice Discussed: * Reassurance and Education - Mild Rectal Pain or Irritation * Warm Saline Sitz Baths - For Rectal Symptoms * Warm Saline Sitz Baths - How to Make a Sitz Bath * Telephone Encounter - Cande Montelongo - 07/31/2024 3:49 PM EDT Pt requesting call from a nurse, stated stomach aches, burning feeling and burning feeling in rectal are when pt uses bathroom documented in this encounter Plan of Treatment Upcoming Encounters Date Type Department Care Team (Late st Contact Info) Description 08/24/2024 9:45 AM EDT Office Visit [facility] MED & PEDS [address] [place] [address] Claudia Wilcox MD [address] [place] [address] documented as of this encounter Visit Diagnoses Not on filedocumented in this encounter Additional Health Concerns Assessment Noted Time PHQ-9 Depression Total Score: 0 02/09/20 24 11:18 AM EST documented as of this encounter Care Teams Bridge Worker Relationship Specialty Start Date End Date Claudia Wilcox MD [address] [place] [id number] PCP - General Family Medicine 11/29/23 documented as of this encounter
--- OUTSIDE RECORDS SUMMARY | 2024-08-01 12:57 | XMS_ITS | Encounter Summary ---
Author Organization [employer] Address [address] [facility] [place] [address] Care Team Providers Care Stroke Belt Sander Operator Name Role Phone Siena Dumas MD Primary Care Provider [phone] Claudia Wilcox MD Primary Care Provider [phone] Encounter Details Date Type Department Care Team (Late st Contact Info) Description 11/24/2023 Orders Only [facility] [address] [place] [address] Provider, MD Emily Social History Tobacco Use Types Packs/Day Years Used Date Smoking Tobacco: Never Passive Smoke Exposure: Never Smokeless Tobacco: Never Alcohol Use Standard Drinks/Week Comments Yes 1 (1 standard drink = 0.6 oz pur e alcohol) Depression Answer Date Recorded Patient Health Questionnaire-9 Score 0 06/22/2022 Housing Stability Answer Date Recorded What is your housing situation today? I have wichojimbo sainz 01/18/[address] you li ve. Do you have problems with any of the following? None of the above 01/18/2023 Food Insecurity Answer Date Recorded Within the past 12 months, y ou worried that your food would run out before you got money to buy more: Never True 01/18/2023 Within the past 12 months,th e food you bought just didn't last and you didn't have enough money to get more: Never True Transportation Answer Date Recorded In the past 12 months, has l ack of transportation kept you from medical appts, meetings, work or from getting things needed for daily living? No 01/18/2023 Utilities Answer Date Recorded In the past 12 months, has t he electric, gas, oil or water company threatened to shut off services in your home? No 01/18/2023 Depression Answer Date Recorded Patient Health Questionnaire-2 Score 0 06/22/2022 Sex and Gender Information Value Date Recorded Sex Assigned at Male 02/01/2022 10:15 AM EDT Legal Sex Male 10:15 AM EDT Gender Identity Male 02/01/2022 10:15 AM EDT Sexual Orientation Straight 07/01/2022 3: 01 PM EDT documented as of this encounter Plan of Treatment Upcoming Encounters Date Type Department Care Team (Late st Contact Info) Description 08/24/2024 9:45 AM EDT Office Visit [facility] MED & PEDS [address] [place] [address] Claudia Wilcox MD [address] [place] [address] documented as of this encounter Procedures Procedure Name Priority Date/Time Associated Diagnosis Comments CT ABDOMEN PELVIS W CONTRAST Routine 11/23/2023 9:08 AM EDT documented in this encounter Results * CT Abdomen Pelvis w/ Contrast (11/23/2023 9:08 AM EDT) Anatomical Region Laterality Modality Body, Pelvis, Abdomen Computed T omography us Historical Provider MD W[facility] CT PROCEDURES Final R esult documented in this encounter Visit Diagnoses Not on filedocumented in this encounter Additional Health Concerns Assessment Noted Time PHQ-9 Depression Total Score: 0 06/23/19 23 10:10 AM EDT documented as of this encounter Care Teams Stroke Belt Sander Operator Relationship Specialty Start Date End Date Siena Dumas MD [address] [place] [address] PCP - General Family Medicine 12/18/12 11/28/23 Claudia Wilcox MD [address] [place] [address] PCP - General Family Medicine 11/29/23 documented as of this encounter
--- OUTSIDE RECORDS SUMMARY | 2024-08-01 12:57 | XMS_ITS | Encounter Summary ---
Author Organization [employer] Address [address] [facility] [address] [place] [address] Care Team Providers Care Brake Lining Finisher Asbestos Name Role Phone Claudia Wilcox MD Primary Care Provider [phone] Encounter Details Date Type Department Care Team ([facility] st Contact Info) Description 08/01/2024 9:40 AM EDT [facility] [address] [place] [address] Rectal pain (Primary Dx); Chronic suprapubic pain Social History Tobacco Use Types Packs/Day Years [...] housing situation today? I have wichojimbo sainz 02/09/[address] you [...] PM EDT documented as of this encounter Last Filed Vital Signs Vital Sign Reading Time Taken Comments Blood Pressure 154/90 08/01/2024 9:46 AM EDT Pulse 78 08/01/2024 9:46 AM EDT Temperature 36.2 ??C (97.2 ??F) 08/01/2024 9:46 AM ED T Respiratory Rate 20 08/01/2024 9:46 AM EDT Oxygen Saturation 98% 08/01/2024 9:46 AM EDT Inhaled Oxygen Concentration - - Weight 86.6 kg (191 lb) 08/01/2024 9:46 AM EDT Height 162 cm (5' 3.78 ) 08/01/2024 9:46 AM EDT Body Mass Index 33.01 08/01/2024 9:46 AM EDT documented in this encounter Plan of Treatment Upcoming Encounters Date Type Department Care Team (Late st Contact Info) Description 08/24/2024 9:45 AM EDT Office Visit [facility]S [address] [place] [address] Claudia Wilcox MD [address] [place] [address] Scheduled Orders Name Type Priority Associated Diagnoses Orde r Schedule Chlamydia/N. Gonorrhoeae RNA, TMA, Rectal Microbiology Routine Rectal pain Ordered: 08/01/2024 Chlamydia/N. Gonorrhoeae RNA, TMA, Urogenitial Microbiology Routine Chronic suprapubic pain Ordered: 08/01/2024 documented as of this encounter Visit Diagnoses Diagnosis Rectal pain- Primary Anal or rectal pain Chronic suprapubic pain documented in this encounter Additional Health Concerns Assessment Noted Time PHQ-9 Depression Total Score: 0 02/09/20 24 11:18 AM EST documented as of this encounter Care Teams Brake Lining Finisher Asbestos Relationship Specialty Start Date End Date Claudia Wilcox MD [address] [place] [address] PCP - General Family Medicine 11/29/23 documented as of this encounter
--- OUTSIDE RECORDS SUMMARY | 2024-08-01 12:57 | XMS_ITS | Encounter Summary ---
Author Organization [employer] Address [address] [facility] [address] [place] [address] Care Team Providers Care Search Engine Optimization Analyst Name Role Phone Claudia Wilcox MD Primary Care Provider [phone] Encounter Details Date Type Department Care Team (Late st Contact Info) Description 12/14/2023 Orders Only [facility] [address] [place] [address] ProviderEmily MD Social History Tobacco Use Types Packs/Day Years Used Date Smoking Tobacco: Never Passive Smoke Exposure: Never Smokeless Tobacco: Never Alcohol Use Standard Drinks/Week Comments Yes 1 (1 standard drink = 0.6 oz pur e alcohol) Depression Answer Date Recorded Patient Health Questionnaire-9 Score 0 06/22/2022 Housing Stability Answer Date Recorded What is your housing situation today? I have wicho sainz 01/18/[address] you [...] 9:45 AM EDT Office Visit [facility] [address] [place] [address] Claudia Wilcox MD [address] [place] [address] documented as of this encounter Procedures Procedure Name Priority Date/Time Associated Diagnosis Comments HM COLONOSCOPY Routine 12/14/2023 11:50 AM EDT documented in this encounter Results * Hm Colonoscopy (12/14/2023 11:50 AM EDT) Historical Provider HEALTH MAINTENANCE Final Result documented in this encounter Visit Diagnoses Not on filedocumented in this encounter Additional Health Concerns Assessment Noted Time PHQ-9 Depression Total Score: 0 06/23/19 23 10:10 AM EDT documented as of this encounter Care Teams Search Engine Optimization Analyst Relationship Specialty Start Date End Date Claudia Wilcox MD [address] [place] [address] PCP - General Family Medicine 11/29/23 documented as of this encounter
--- OUTSIDE RECORDS SUMMARY | 2024-08-01 12:57 | XMS_ITS | Encounter Summary ---
Author Organization [employer] Address [address] [facility] [address] [place] [address] Care Team Providers Care Non Profit Financial Controller Name Role Phone Claudia Wilcox MD Primary Care Provider [phone] Encounter Details Date Type Department Care Team (Latest Contact Info) Description 08/01/2024 Travel Social History Tobacco Use Types Packs/Day Years [...] Description 08/24/2024 9:45 AM EDT Office Visit [facility] & [facility]EDS [address] [place] [address] Claudia Wilcox MD [address] [place] [address] documented as of this encounter Visit Diagnoses Not on filedocumented in this encounter Additional Health Concerns Assessment Noted Time PHQ-9 Depression Total Score: 0 02/09/20 24 11:18 AM EST documented as of this encounter Care Teams Non Profit Financial Controller Relationship Specialty Start Date End Date Claudia Wilcox MD [address] [place] [address] PCP - General Family Medicine 11/29/23 documented as of this encounter
--- OUTSIDE RECORDS SUMMARY | 2024-08-01 12:57 | XMS_ITS | Encounter Summary ---
Author Organization [employer] Address [address] [facility] [address] [place] [address] Care Team Providers Care Segment Producer Name Role Phone Claudia Wilcox MD Primary Care Provider [phone] Reason for Visit * Reason Onset Date Comments Appointment Request 12/27/2023 Encounter Details Date Type Department Care Team ([facility] st Contact Info) Description 12/27/2023 Telephone [facility] [address] [place] [address] Claudia Wilcox MD [address] [place] [id number] Appointment Request Social History Tobacco Use Types Packs/Day Years [...] encounter Miscellaneous Notes * Telephone Encounter - Preethivan Ernesto Allen - 12/27/2023 3:50 PM EDT Tc from pt requesting to know appt on 02/03/[address] Wilcox was canceled. documented in this encounter Plan of Treatment Upcoming Encounters Date Type Department Care Team (Late st Contact Info) Description 08/24/2024 9:45 AM EDT Office Visit [facility]ED[facility] [address] [place] [address] Claudia Wilcox MD [address] [place] [address] documented as of this encounter Visit Diagnoses Not on filedocumented in this encounter Additional Health Concerns Assessment Noted Time PHQ-9 Depression Total Score: 0 06/23/19 23 10:10 AM EDT documented as of this encounter Care Teams Segment Producer Relationship Specialty Start Date End Date Claudia Wilcox MD [address] [place] [address] PCP - General Family Medicine 11/29/23 documented as of this encounter
--- OUTSIDE RECORDS SUMMARY | 2024-08-01 12:57 | XMS_ITS | Encounter Summary ---
Author Organization [employer] Address [address] [facility] [address] [place] [address] Care Team Providers Care Neon Tube Bender Name Role Phone Siena Dumas MD Primary Care Provider [phone] Claudia Wilcox MD Primary Care Provider [phone] Reason for Visit * Reason Onset Date Comments FYI 11/24/2023 Encounter Details Date Type Department Care Team (Late st Contact Info) Description 11/24/2023 Telephone [facility] [address] [place] [address] Siena Dumas MD [address] [place] [address] FYI Social History Tobacco Use Types Packs/Day Years [...] encounter Miscellaneous Notes * Telephone Encounter - Ra Manuel - 11/24/2023 8:37 AM EDT Donald Lynch at [facility] colon and rectal surgery calling to report after reviewing the notes had seen some incidental findings that should be communicated between the provider and patient Cris will be faxing over the documents documented in this encounter Plan of Treatment Upcoming Encounters Date Type Department Care Team (Late st Contact Info) Description 08/24/2024 9:45 AM EDT Office Visit [facility] P[facility] [address] [place] [address] Claudia Wilcox MD [address] [place] [address] documented as of this encounter Visit Diagnoses Not on filedocumented in this encounter Additional Health Concerns Assessment Noted Time PHQ-9 Depression Total Score: 0 06/23/19 23 10:10 AM EDT documented as of this encounter Care Teams Neon Tube Bender Relationship Specialty Start Date End Date Siena Dumas MD [address] [place] [address] PCP - General Family Medicine 12/18/12 11/28/23 Claudia Wilcox MD [address] [place] [address] PCP - General Family Medicine 11/29/23 documented as of this encounter
--- OUTSIDE RECORDS SUMMARY | 2024-08-01 12:57 | XMS_ITS | Encounter Summary ---
Author Organization [facility] Address [address] [place] [address] Care Team Providers Care Dermatology Specialist Name Role Phone Siena Dumas Primary Care Provider [phone] Encounter Details Date Type Department Care Team (Late st Contact Info) Description 11/17/[address] [facility] Interventional Radiology [address] [place] [address] Иван Lepe MD [address] [place], [place] [id number] Social History Tobacco Use Types Packs/Day Years Used Date Smoking Tobacco: Never Smokeless Tobacco: Never Alcohol Use Standard Drinks/Week Comments Never 0 (1 standard drink = 0.6 oz pur e alcohol) Sex and Gender Information Value Date Recorded Sex Assigned at Not on file Legal Sex Male 11:20 AM EDT Gender Identity Not on file Sexual Orientation Not on file documented as of this encounter Plan of Treatment Not on file documented as of this encounter Visit Diagnoses Not on filedocumented in this encounter Care Teams Dermatology Specialist Relationship Specialty Start Date End Date Siena Dumas [address] [place] [address] PCP - General Family Medicine 10/21/17 documented as of this encounter
--- OUTSIDE RECORDS SUMMARY | 2024-08-01 12:57 | XMS_ITS | Clinical Summary ---
Author Organization [employer] Address [address] [facility] [address] [place] [address] Care Team Providers Care Turpentine Distiller Name Role Phone Claudia Wilcox MD Primary Care Provider [phone] Allergies No known active allergies Medications acetaminophen (Tylenol) 325 MG tablet Take 1 tablet by mouth every 4 (four) hours. 0 Active dextran 70-hypromellose (dextran-70 & hydroxypropyl methylcellulose) 0.1-0.3 % ophthalmic solution insert 1 drop in the right eye 6 times daily as needed Active meclizine (Antivert) 25 MG tablet Take 1 tablet by mouth at bed time. 0 Active simvastatin (Zocor) 10 MG tabletIndications: Hypercholesterolem ia TAKE ONE TABLET AT BEDTIME 90 tablet 3 4 Active Aspirin Adult Low Strength 81 MG EC tabletIndications: Primary hypertension TAKE ONE TABLET BY MOUTH EVERY MORNING 90 tablet 3 4 Active ondansetron ODT (Zofran-ODT) 4 MG disintegrating tablet DISSOLVE ONE TABLET ON TONGUE EVERY 8 HOURS NEEDED FOR NAUSEA AND VOMITING 20 tablet 4 Active omeprazole (PriLOSEC) [address] capsuleIndications :GERD without esophagitis TAKE ONE CAPSULE EVERY DAY 90 capsule 1 4 Active hydroCHLOROthiazid e (HYDRODiuril) 25 MG tablet TAKE ONE TABLET EVERY MORNING 90 tablet 3 4 Active bismuth subsalicylate (Pepto-Bismol) 262 MG/15ML suspension Take 15 mL by mouth if needed. Active Glycerin-Hypromell ose-PEG 400 0.2-0.2-1 % solution 0 Active sucralfate (Carafate) 1 g tablet TAKE 1 TABLET 3 TIMES A DAY NEEDED FOR ABDOMINAL PAIN 4 Active polyethylene glycol, PEG, 3350 (MiraLax) 17 GM/SCOOP powderIndications: Constipation, unspecified constipation type Take 17 g by mouth Once per day. 527 g 2 4 Active senna-docusate sodium (Senokot-S) 8.6-50 MG tabletIndications: Constipation, unspecified constipation type Take 2 tablets by mouth if needed at bedtime for constipation. 60 tablet 2 4 Active ibuprofen 800 MG tabletIndications: Pain TAKE ONE TABLET THREE TIMES DAILY 90 tablet 3 5 Active Active Problems Problem Noted Date Diagnosed Date Internal hemorrhoid 02/09/2024 Assessment & Plan (02/10/2024 12:25 PM EST): Upon examination of the anus, pt has an enlarged internal hemorrhoid. Not bleeding. Pt was educated that hemorrhoids can sweat. Relevant orders: phenylephrine-shark liver oil-mineral oil-petrolatum (Preparation H) 0.25-3-14-71.9 % rectal ointment Provided Drs note for pt's job. Bloating 02/09/2024 Assessment & Plan (02/10/2024 12:20 PM EST): Upon examination of abdomen, pt had increased bloating. Will check for foods that might be triggering his symptoms. Rectal pain 02/07/2024 Gastritis 02/07/2024 Prostate infection 07/04/2023 Assessment & Plan (07/04/2023 6:51 PM EDT): The patient is diagnosed with prostatis based on symptoms and physical examination findings. The treatment plan includes antibiotics (levofloxacin and bactrim) to address the prostatitis. Hemorrhoids cream is prescribed to alleviate anal itchiness despite the absence of observed hemorrhoids. The patient is advised to F/U with his primary care provider for further management and to obtain test results from previous visits to [facility]. Anal pruritus 07/04/2023 History of Helicobacter pylori infection 023 Overview (02/08/2023): ?? Previously followed by TRICE Hidalgo (last available consult note 08/10/18) Abdominal discomfort 02/08/2023 Assessment & Plan (02/08/2023 9:00 AM EST): ?? Clinical presentation c/w GERD, however would like to confirm that H. Pylori had been successfully treated ?? Plan: Stop PPI x 2 weeks, complete testing for H. Pylori (pt preference for stool sample over breath test). After sample provided, may resume PPI ?? Reviewed lifestyle interventions to decrease symptoms including avoid triggering foods (such as coffee, chocolate, fatty foods), avoid eating 2-3 hours before lying down, and enourage weight loss. ?? Education handout provided ?? ED/urgent care precautions reviewed Hypertensive disorder 12/05/2020 Prediabetes 12/05/2020 Obesity 12/05/2020 Assessment & Plan (02/13/2024 8:05 PM EST): Discussed calorie deficit, recommended reduction of 20-30% of maintenance calories; mold maker apprentice referral offered. Recommended to decrease soda and sugary beverage consumption. Recommended at least 20 g per meal of protein to assist with satiety. Recommended at least 150 min/week of moderate intensity exercise. H. pylori infection 08/10/2018 Chronic abdominal pain 01/11/2018 Overview (02/07/2024): Added automatically from request for surgery [id number] Pure hypercholesterolemia 10/08/2015 Encounters Date Type Department Care Team Description 08/01/2024 9:40 AM EDT Office Visit [facility] MED & PEDS [address] [place] [address] Rectal pain (Primary Dx); Chronic suprapubic pain 08/01/2024 Travel 07/31/2024 3:00 PM EDT Office Visit [facility] ADULT DENTAL [address] [place] [address] Zeb Robb Dental calculus (Primary Dx) 07/31/2024 Telephone [facility] MED & PEDS [address] [place] [address] Claudai Wilcox MD triage 06/19/2024 Refill [facility]C MED & PEDS [address] [place] [address] Siena Dumas MD Pain from Last 3 Months Immunizations Name Administration Dates Next Due Influenza Injectable Quadriv alant Preservative Free IIV4 MDCK 02/05/2022 Influenza injectable quadriv alent IIV4 with preservative 03/18/2015 Influenza injectable quadriv alent preservative free 02/07/2023,01/05/2021,12/27/2018,2016,01/22/2016 Influenza, IIV3, injectable 02/25/2014 Influenza, Split (incl. meeta fied surface antigen) 01/30/2013 Influenza, seasonal, injecta ble, preservative free 02/09/2024 MMR 10/08/2015 PPD Test 10/08/2015 Tdap 01/18/2017,10/08/2015 Social History Tobacco Use Types Packs/Day Years Used Date Smoking Tobacco: Never Passive Smoke Exposure: Never Smokeless Tobacco: Never Tobacco Cessation:Counseling Given: Not Answered Alcohol Use Standard Drinks/Week Comments Yes 1 [...] Orientation Straight 07/01/2022 3: 01 PM EDT Last Filed Vital Signs Vital Sign Reading [...] Mass Index 33.01 08/01/2024 9:46 AM EDT Plan of Treatment Upcoming Encounters Date Type Department Care Team (Late st Contact Info) Description 08/24/2024 9:45 AM EDT Office Visit [facility] MED & PEDS [address] [place] [address] Claudia Wilcox MD [address] [place] [address] Health Maintenance Due Date Last Done Comments CT Colonography 1974 FIT 1974 FOBT 1974 Sigmoidoscopy 1974 Family Planning (PISQ) 1989 Hepatitis B Vaccines (1 of 3 - 19+ 3-dose series) 1993 COVID-19 Vaccine (4 - 2023- season) 2023 03/18/2021, 07/14/2020, 06/16/2020 Pneumococcal Vaccine: 50+ Years (1 of 1 - PCV) 2024 Zoster Vaccines (1 of 2) 2024 Diabetes: Hemoglobin A1C 07/31/2024 024, 06/22/2022, 12/10/2020, Additional history exists Dental Oral Exam 01/31/2025 07/31/2024 Dental Prophylaxis 01/31/2025 07/31/2024, 1 , 07/21/2023 Alcohol/Substance Use Screening 02/08/2025 02/09/2024 Depression Screening 02/08/2025 02/09/2024, 02/09/20 24 SDOH Screening 02/08/2025 02/09/2024 Tobacco Screening 07/31/2025 07/31/2024 Dental X-Ray: Bitewings 08/01/2025 08/01/19 25, 07/21/2023, 07/01/2022 FIT DNA/Cologuard 07/06/2026 07/07/2023 Dental X-Ray: Full Mouth 07/21/2026 07/21/2023 DTaP/Tdap/Td Vaccines (3 - Td or Tdap) 01/18/2027 01/18/2017, 10/08/2015 Colonoscopy 12/13/2028 12/14/2023, 12/14/2023 Colorectal Cancer Screening 12/13/2028 Lipid Panel 02/08/2029 02/09/2024, 06/03, 12/10/2020, Additional history exists RSV Patients and Patients Aged 60 years or older (1 - 1-dose 75+ series) 2049 HIV Screening Completed 02/09/2024, 12/10/2020 Hepatitis C Screening Completed 02/09/2024 Influenza Vaccine Completed 02/09/2024, , 02/05/2022, Additional history exists HIB Vaccines Aged Out No longer eligi ble based on patient's age to complete this topic HPV Vaccines Aged Out No longer eligi ble based on patient's age to complete this topic Hepatitis A Vaccines Aged Out No long er eligible based on patient's age to complete this topic IPV Vaccines Aged Out No longer eligi ble based on patient's age to complete this topic Meningococcal Vaccine Aged Out No caren nikky eligible based on patient's age to complete this topic RSV under 20 months Aged Out No longe r eligible based on patient's age to complete this topic Rotavirus Vaccines Aged Out No longer eligible based on patient's age to complete this topic Procedures Procedure Name Priority Date/Time Associated Diagnosis Comments COMPREHENSIVE PERIODONTAL EVALUATION - NEW OR ESTABLISHED PATIENT Routine 07/31/2024 3:00 PM EDT PERIODIC ORAL EVALUATION - ESTABLISHED PATIENT Routine 07/31/2024 3:00 PM EDT CASE PRESENTATION, DETAILED AND EXTENSIVE TREATMENT PLANNING Routine 07/31/2024 3:00 PM EDT INTRAORAL - PERIAPICAL EACH ADDITIONAL RADIOGRAPHIC IMAGE Routine 07/31/2024 3:00 PM EDT INTRAORAL - PERIAPICAL FIRST RADIOGRAPHIC IMAGE Routine 07/31/2024 3:00 PM EDT BITEWINGS - 4 RADIOGRAPHIC IMAGES Routine 07/31/2024 3:00 PM EDT ORAL HYGIENE INSTRUCTIONS Routine 07/31/2024 3:00 PM EDT PROPHYLAXIS - ADULT Routine 07/31/2024 3 :00 PM EDT HEPATITIS C AB W/REFL TO HCV RNA, QN, PCR Routine 02/09/2024 1:14 PM EST Screening examination for STD (sexually transmitted disease) HIV 1/2 ANTIGEN/ANTIBODY, FOURTH GENERATION W/RFL Routine 02/09/2024 1:14 PM EST Screening examination for STD (sexually transmitted disease) LIPID PANEL, STANDARD Routine 02/09/2024 1:14 PM EST Bloating HM COLONOSCOPY Routine 12/14/2023 11:50 AM EDT POCT GLYCATED HEMOGLOBIN, TOTAL Routine 08/01/2023 9:50 AM EDT Prediabetes INTRAORAL - COMPLETE SERIES OF RADIOGRAPHIC IMAGES Routine 07/21/2023 3:00 PM EDT LAB COLOGUARD?? COLON CANCER SCREEN Routine 07/07/2023 9:08 PM EDT Colon cancer screening from Last 3 Months or Most Recently Relevant to Health Maintenance Results * Hepatitis C Antibody with Reflex to HCV, RNA, Quantitative, Real-Time PCR (02/09/2024 1:14 PM EST) Pathologist [facility] Hepatitis C Antibody Nonreactive Nonreactive [facility] Comment:Antibodies to HCV no t detected; does not exclude early acuteHCV infection. Blood Venous blood specimen / Unknown 02/09/2024 1:14 PM EST 02/09/2024 2:50 PM EST Claudia Wilcox MD LAB BLOOD ORDERABLES Final Re sult Performing Organization Address [facility] de Phone Number [facility] [address] [place] [phone] * HIV-1/2 Antigen and Antibodies, Fourth Generation, with Reflexes (02/09/2024 1:14 PM EST) Pathologist [facility] HIV AB/AG Nonreactive Nonreactive [facility] Comment:HIV-1 p24 Ag and/or HIV-1/HIV-2 Ab not detected.A test result that is nonreactive does not exclude thepossibility of exposure to or infection with HIV-1 and/orHIV-2. Nonreactive results in this assay for individualswith prior exposure to HIV-1 and/or HIV-2 may be due toantigen and antibody levels that are below the limit ofdetection of this assay.The [employer] HIV Ag/Ab Combo assay result andsupplemental assay results should be interpreted inconjunction with the patient's clinical presentation,history and other laboratory results. If the results areinconsistent with clinical evidence, additional testing issuggested to confirm the result. Blood Venous blood specimen / Unknown 02/09/2024 1:14 PM EST 02/09/2024 2:50 PM EST Claudia Wilcox MD LAB BLOOD ORDERABLES Final Re sult Performing Organization Address [facility] de Phone Number [facility] [address] [place] [phone] * (ABNORMAL) Lipid Panel, Standard (02/09/2024 1:14 PM EST) Triglycerides 120 <150 mg/dL [facility] Comment:Desirable Triglyceri de: less than 150 mg/dLBorderline High Triglyceride 150-199 mg/dLHigh Triglyceride: 200-499 mg/dLVery High Triglyceride: greater than or equal to 5OO mg/dL Cholesterol 219(H) <200 mg/dL [facility] Comment:Desirable Cholestero l: less than 200 mg/dLBorderline High Cholesterol: 200-239 mg/dLHigh Cholesterol: greater than 239 mg/dL LDL Cholesterol Calculated 149(H) <100 mg/dL [facility] Comment:Desirable LDL: less than 100 mg/dLNear Optimal/Above Optimal LDL: 110- 129 mg/dLBorderline High LDL: 130-159 mg/dLHigh LDL: 160-189 mg/dLVery High LDL: greater than or equal to 190 mg/dL HDL Cholesterol 46 >40 mg/dL [facility] Comment:Desirable HDL: great er than 40 mg/dL Note: This HDL assay may give artificially low results in patients with liver disease. Blood Venous blood specimen / Unknown 02/09/2024 1:14 PM EST 02/09/2024 2:50 PM EST Claudia Wilcox MD LAB BLOOD ORDERABLES Final Re sult [facility] [address] [place] [address] [phone] * Hm Colonoscopy (12/14/2023 11:50 AM EDT) Historical Provider HEALTH MAINTENANCE Final Result * POCT HGB A1C (08/01/2023 9:50 AM EDT) Hemoglobin A1C 5.9 4.0 - 6.0 % QC Media Lot # [id number] Lot# Expiration Date Blood 08/01/2023 9:50 AM EDT Siena Dumas MD POINT OF CARE TEST ENTER/EDIT OR DERABLES Final Result * Cologuard?? colon cancer screening (07/07/2023 9:08 PM EDT) Cologuard Result Negative Negative 07/14/19 8:34 PM EDT [facility] (CLIA #:[id number]) Comment: NEGATIVE TEST RESULT. A negative Cologuard result indicates a low likelihood that a colorectal cancer (CRC) or advanced adenoma (adenomatous polyps with more advanced pre-malignant features) ??is present. The chance that a person with a negative Cologuard test has a colorectal cancer is less than 1 in 1500 (negative predictive value >99.9%) or has an ??advanced adenoma is less than ??5.3% (negative predictive value 94.7%). These data are based on a prospective cross-sectional study of 10,000 individuals at average risk for colorectal cancer who were screened with both Cologuard and colonoscopy. (Meche Alston et al, N Engl J Med 2014;370(14):1286- 1297) The normal value (reference range) for this assay is negative. COLOGUARD RE-SCREENING RECOMMENDATION: Periodic colorectal cancer screening is an important part of preventive healthcare for asymptomatic individuals at average risk for colorectal cancer. ??Following a negative Cologuard result, the [place] [employer] Society and U.S. Multi-Society Task Force screening guidelines recommend a Cologuard re-screening interval of 3 years. References: [place] [employer] Guideline for Colorectal Cancer Screening: https://www.cancer.org/cancer/lepnk-bcehth-qzihey/nhgfeqlns-ufqhljyav-rdzqngk/ac s-rec ommendations.html.; Lev DK, Jacob CR, Wanda RaoK, Colorectal Cancer Screening: Recommendations for Physicians and Patients from the U.S. Multi-Society Task Force on Colorectal Cancer Screening , Am J Gastroenterology 2017; 112:4535-5503. TEST DESCRIPTION: Composite algorithmic analysis of stool DNA-biomarkers with hemoglobin immunoassay. ?? Quantitative values of individual biomarkers are not reportable and are not associated with individual biomarker result reference ranges. Cologuard is intended for colorectal cancer screening of adults of either sex, 45 years or older, who are at average-risk for colorectal cancer (CRC). Cologuard has been approved for use by the U.S. FDA. The performance of Cologuard was established in a cross sectional study of average-risk adults aged 50-84. Cologuard performance in patients ages 45 to 49 years was estimated by sub-group analysis of near-age groups. Colonoscopies performed for a positive result may find as the most clinically significant lesion: colorectal cancer [4.0%], advanced adenoma (including sessile serrated polyps greater than or equal to 1cm diameter) [20%] or non- advanced adenoma [31%]; or no colorectal neoplasia [45%]. These estimates are derived from a prospective cross-sectional screening study of 10,000 individuals at average risk for colorectal cancer who were screened with both Cologuard and colonoscopy. (Meche Alston et al, N Engl J Med 2014;370(14):0878-8343.) Cologuard may produce a false negative or false positive result (no colorectal cancer or precancerous polyp present at colonoscopy follow up). A negative Cologuard test result does not guarantee the absence of CRC or advanced adenoma (pre-cancer). The current Cologuard screening interval is every 3 years. ([place] [employer] and U.S. Multi-Society Task Force). Cologuard performance data in a 10,000 patient pivotal study using colonoscopy as the reference method can be accessed at the following location: www.Kodkod/results. Additional description of the Cologuard test process, warnings and precautions can be found at www.[employer]001ogCrewrd.com. Stool specimen (specimen) 07/07/2023 9:08 PM EDT 07/09/2023 11:39 AM EDT us Claudia Wilcox MD LAB MOLECULAR DIAGNOSTICS ORD ERABLES Final Result [facility] (CLIA #:[id number]) [address] [place] [id number], from Last 3 Months or Most Recently Relevant to Health Maintenance Insurance HSN FULL [facility] HSN PARTIAL DENTAL - HSN FULL (MEDICAID) Care Teams Turpentine Distiller Relationship Specialty Start Date End Date Claudia Wilcox MD [address] [place] [phone] PCP - General Family Medicine 11/29/23
--- OUTSIDE RECORDS SUMMARY | 2024-08-01 12:57 | XMS_ITS | Encounter Summary ---
Author Organization [facility] Address [address] [place] [address] [address] [place] [address] Care Team Providers Care Cooling Machine Operator Name Role Phone Siena Dumas MD Primary Care Provider [phone] Claudia Wilcox MD Primary Care Provider [phone] Encounter Details Date Type Department Care Team (Latest Contact Info) Description 03/07/2019 Abstract [facility] CONVERSIONS Dental, Provider, DDS Social History Tobacco Use Types Packs/Day Years Used Date Smoking Tobacco: Never Assessed Sex and Gender Information Value Date Recorded Sex Assigned at Male 02/01/2022 10:15 AM EDT Legal Sex Male 10:15 AM EDT Gender Identity Male 02/01/2022 10:15 AM EDT Sexual Orientation Straight 07/01/2022 3: 01 PM EDT documented as of this encounter Plan of Treatment Upcoming Encounters Date Type Department Care Team ( st Contact Info) Description 08/24/2024 9:45 AM EDT Office Visit [facility] [place] CHC MED & PEDS [address] [place] [address] Claudia Wilcox MD [address] [place] [address] documented as of this encounter Visit Diagnoses Not on filedocumented in this encounter Care Teams Cooling Machine Operator Relationship Specialty Start Date End Date Siena Dumas MD [address] [place] [address] PCP - General Family Medicine 12/18/12 11/28/23 Claudia Wilcox MD [address] [place] [address] PCP - General Family Medicine 11/29/23 documented as of this encounter
--- OUTSIDE RECORDS SUMMARY | 2024-08-01 12:57 | XMS_ITS | Encounter Summary ---
Author Organization [facility] Address [address] [place] [address] Care Team Providers Care Manager File Name Role Phone Siena Dumas Primary Care Provider Encounter Details Date Type Department Care Team (Latest Contact Info) Description 08/08/2023 Transcribe Orders [facility] Physician Referral Services [address] [place] [address] Siena Dumas [address] [place] [address] Hemorrhoids, unspecified hemorrhoid type (Primary Dx) Social History Tobacco Use Types Packs/Day Years [...] as of this encounter Visit Diagnoses Diagnosis Hemorrhoids, unspecified hemorrhoid type- Primary documented in this encounter Care Teams Manager File Relationship Specialty Start Date End Date Siena Dumas [address] [place] [address] PCP - General Family Medicine 10/21/17 documented as of this encounter
--- OUTSIDE RECORDS SUMMARY | 2024-08-01 12:57 | XMS_ITS | Encounter Summary ---
Author Organization [employer] Address [address] [place] [address] Care Team Providers Care Concierge Manager Name Role Phone Claudia Wilcox MD Primary Care Provider [phone] Reason for Visit * Reason Comments Routine Cleaning Dental Exam Encounter Details Date Type Department Care Team ([facility] st Contact Info) Description 07/31/2024 3:00 PM EDT Office Visit [facility] ADULT DENTAL [address] [place] [address] Zeb Robb Dental calculus (Primary Dx) Social History Tobacco Use Types [...] Sign Reading Time Taken Comments Blood Pressure 134/74 07/31/2024 3:13 PM EDT Pulse 66 07/31/2024 3:13 PM EDT Temperature - - Respiratory Rate - - Oxygen Saturation - - Inhaled Oxygen Concentration - - Weight - - Height - - Body Mass Index - - documented in this encounter Progress Notes * Zeb Robb - 07/31/2024 3:00 PM EDT Patient ID: Irvin Ferrera is a 49 y.o. male. Time Out: Timeout Date: 07/31/24, Timeout Time: 1512 Location: [facility] Tooth: Maxilla and Mandible Procedure: Exam, X-rays, and Prophylaxis Verified the above with patient, nutrition services assistant, and provider. Confirmed via patient's chart, intraorally and by radiographs. Sanding Machine Tender Automatic: not applicable Medical Hx: Vitals: Blood pressure 134/74, pulse 66. Medications, Med Hx reviewed with patient and updated in chart. Treatment Provided Dental procedures in this visit D1110 - PROPHYLAXIS - ADULT (Completed) Service provider: Zeb Robb Billing provider: Minoo Phillips [id number] - ORAL HYGIENE INSTRUCTIONS (Completed) Service provider: Zeb Robb Billing provider: Minoo Phillips D0274 - BITEWINGS - 4 RADIOGRAPHIC IMAGES (Completed) Service provider: Zeb Robb Billing provider: Minoo Phillips [id number] - INTRAORAL - PERIAPICAL FIRST RADIOGRAPHIC IMAGE (Completed) Service provider: Zeb Robb Billing provider: Minoo Phillips [id number] - INTRAORAL - PERIAPICAL EACH ADDITIONAL RADIOGRAPHIC IMAGE (Completed) Service provider: Zeb Robb Billing provider: Minoo Phillips [id number] - CASE PRESENTATION, DETAILED AND EXTENSIVE TREATMENT PLANNING (Completed) Service provider: Zeb Robb Billing provider: Minoo Phillips Instruments Used: Ultrasonic Scalers and Prophy angle Fluoride: N/A Oral Cancer Screening: No lesions Head/Neck Exam: No Lesions Calculus: Light and Localized Plaque: Light and Generalized Stain: Light and Generalized Bleeding: Light and Localized Gingiva: Healthy and Perio Charting Completed OH: Fair Perio Chart: Completed Oral hygiene instructions provided to patient including brushing technique and flossing. Dental exam done by . Recommendations: [place] two times daily, modified ramos technique, Floss daily Recall Frequency: 6 mo NV: 6mr Hygienist: Zeb Robb RDH * Minoo Phillips - 07/31/2024 3:00 PM EDT Images from the original note were not included. Dental procedures in this visit D1110 - PROPHYLAXIS - ADULT (Completed) Service provider: Zeb Robb Billing provider: Minoo Phillips D1330 - ORAL HYGIENE INSTRUCTIONS (Completed) Service provider: Zeb Robb Billing provider: Minoo Phillips D0274 - BITEWINGS - 4 RADIOGRAPHIC IMAGES (Completed) Service provider: Zeb Robb Billing provider: Minoo Phillips D0220 - INTRAORAL - PERIAPICAL FIRST RADIOGRAPHIC IMAGE (Completed) Service provider: Zeb Robb Billing provider: Minoo Phillips D0230 - INTRAORAL - PERIAPICAL EACH ADDITIONAL RADIOGRAPHIC IMAGE (Completed) Service provider: Zeb Robb Billing provider: Minoo Phillips D9450 - CASE PRESENTATION, DETAILED AND EXTENSIVE TREATMENT PLANNING (Completed) Service provider: Zeb Robb Billing provider: Minoo Phillips D0120 - PERIODIC ORAL EVALUATION - ESTABLISHED PATIENT (Completed) Service provider: Minoo Phillips Billing provider: Minoo Phillips D0180 - COMPREHENSIVE PERIODONTAL EVALUATION - NEW OR ESTABLISHED PATIENT (Completed) Service provider: Minoo Phillips Billing provider: Minoo Phillips Patient ID: Irvin Ferrera is a 49 y.o. male. Time Out: Timeout Date: 07/31/24, Timeout Time: 1512 Location: [facility] Tooth: Maxilla and Mandible Procedure: Exam Verified the above with patient, nutrition services assistant, and provider. Confirmed via patient's chart, intraorally and by radiographs. Sanding Machine Tender Automatic: not applicable Chief Complaint Patient presents with Routine Cleaning Dental Exam Medical Hx: Vitals: Blood pressure 134/74, pulse 66. Past Medical History: Diagnosis Date Hypertension Periodontal disease Medications: Outpatient Encounter Medications as of 07/31/2024 Medication Sig Dispense Refill acetaminophen (Tylenol) 325 MG tablet Take 1 tablet by mouth every 4 (four) hours. Aspirin Adult Low Strength 81 MG EC tablet TAKE ONE TABLET BY MOUTH EVERY MORNING 90 tablet 3 bismuth subsalicylate (Pepto-Bismol) 262 MG/15ML suspension Take 15 mL by mouth if needed. dextran 70-hypromellose (dextran-70 & hydroxypropyl methylcellulose) 0.1-0.3 % ophthalmic solution insert 1 drop in the right eye 6 times daily as needed Gywwopqa-Ebnjpkgpjysf-RPN 400 0.2-0.2-1 % solution hydroCHLOROthiazide (HYDRODiuril) 25 MG tablet TAKE ONE TABLET EVERY MORNING 90 tablet 3 ibuprofen 800 MG tablet TAKE ONE TABLET THREE TIMES DAILY 90 tablet 3 meclizine (Antivert) 25 MG tablet Take 1 tablet by mouth at bed time. omeprazole (PriLOSEC) [address] capsule TAKE ONE CAPSULE EVERY DAY 90 capsule 1 ondansetron ODT (Zofran-ODT) 4 MG disintegrating tablet DISSOLVE ONE TABLET ON TONGUE EVERY 8 HOURSAS NEEDED FOR NAUSEA AND VOMITING 20 tablet 0 polyethylene glycol, PEG, 3350 (MiraLax) 17 GM/SCOOP powder Take 17 g by mouth Once per day. 527 g 2 senna-docusate sodium (Senokot-S) 8.6-50 MG tablet Take 2 tablets by mouth if needed at bedtime forconstipation. 60 tablet 2 simvastatin (Zocor) 10 MG tablet TAKE ONE TABLET AT BEDTIME 90 tablet 3 sucralfate (Carafate) 1 g tablet TAKE 1 TABLET 3 TIMES A DAY NEEDED FOR ABDOMINAL PAIN No facility-administered encounter medications on file as of 07/31/2024. 49y/o male presents for a periodic exam seen by Dr. Minoo Phillips, GILMA. Chief Complaint: I came for cleaning Medical History: Patient does not report any changes in health issues that could alter the Treatment Plan. Medical consult / medical clearance needed: None Allergies: Reviewed in EHR Medications: Reviewed in EHR Radiographs X-rays taken today: 4 BW and 2 PA taken today Discussion: -Pt stated that patient has no pain but felt sensitivity while cleaning in upper left tooth cleaning today. -Upon exam, area in relation to #13 had mild redness and there was generalized cervical abrasion evident due to horizontal brushing and aggressive flossing as stated by patient upon asking. -Pt was explained correct brushing and flossing technique. -Pt denied having any upper/lower partial denture but tooth chart has upper partial denture chartedin 2022. #3 supra-erupted, #5 D incipient lesion evident. Monitor as of now. -Pt was informed that pt needs to contact lockstitch front edge tape sewer for any financial queries related to recommended treatment. -OHI reviewed. Emphasis was laid on maintaining good oral hygiene regimen at home along with regular visits to dentist. -Pt understood, was satisfied with our conversation and agreed with tx plan; dismissed in good condition. -All questions answered. Soft tissue exam: WNL; OCS- negative Head and neck exam: Lymph Nodes, Lips, Palate, Buccal Mucosa, Floor of Mouth, Tongue, Tonsils, Alveolar Ridges, Oropharynx, Salivary Ducts, Vestibules - no abnormal findings. TMJ/Occlusal - TMJ is within normal limits. Oral Cancer Risk - low Perio risk: moderate Oral Hygiene Instruction Provided - Yes Oral Hygiene Instructions: [place] two times daily, modified ramos technique, Floss daily, Electric toothbrush, Soft bristle toothbrush, [place] Tongue. Referrals - None Treatment plan: -prophy- completed by Zeb today -Re-care NV: re-care Hygienist: SHONNA Carrington Dentist: Dr. Minoo Phillips, DMD documented in this encounter Plan of Treatment Upcoming Encounters Date Type Department Care Team (Late st Contact Info) Description 08/24/2024 9:45 AM EDT Office Visit [facility] MED & PEDS [address] [place] [address] Claudia Wilcox MD [address] [place] [address] Scheduled Orders Name Type Priority Associated Diagnoses Orde r Schedule PROPHYLAXIS - ADULT Dental Routine 1 Occ urrences starting 07/31/2024 documented as of this encounter Procedures Procedure Name Priority Date/Time Associated Diagnosis Comments PROPHYLAXIS - ADULT Routine 07/31/2024 3 :00 PM EDT PERIODIC ORAL EVALUATION - ESTABLISHED PATIENT Routine 07/31/2024 3:00 PM EDT ORAL HYGIENE INSTRUCTIONS Routine 2024 3:00 PM EDT INTRAORAL - PERIAPICAL FIRST RADIOGRAPHIC IMAGE Routine 07/31/2024 3:00 PM EDT INTRAORAL - PERIAPICAL EACH ADDITIONAL RADIOGRAPHIC IMAGE Routine 07/31/2024 3:00 PM EDT COMPREHENSIVE PERIODONTAL EVALUATION - NEW OR ESTABLISHED PATIENT Routine 07/31/2024 3:00 PM EDT CASE PRESENTATION, DETAILED AND EXTENSIVE TREATMENT PLANNING Routine 07/31/2024 3:00 PM EDT BITEWINGS - 4 RADIOGRAPHIC IMAGES Routine 07/31/2024 3:00 PM EDT documented in this encounter Visit Diagnoses Diagnosis Dental calculus- Primary Accretions on teeth documented in this encounter Additional Health Concerns Assessment Noted Time PHQ-9 Depression Total Score: 0 02/09/20 24 11:18 AM EST documented as of this encounter Care Teams Concierge Manager Relationship Specialty Start Date End Date Claudia Wilcox MD [address] [place] [id number] PCP - General Family Medicine 11/29/23 documented as of this encounter
--- OUTSIDE RECORDS SUMMARY | 2024-08-01 12:57 | XMS_ITS | Clinical Summary ---
Author Organization [facility] Address [address] [place] [address] Care Team Providers Care Basting Marker Name Role Phone Len Gutierrez MD Primary Care Provider [phone] Source Comments PLEASE NOTE, if this patient is a minor, it may be UNLAWFUL to discuss sensitive information that is contained in these records (such as FAMILY PLANNING, MENTAL HEALTH or SUBSTANCE ABUSE) with the minor patient's parent or other person without the patient's specific authorization.[facility] Allergies No known active allergies Medications No known medications Active Problems Problem Noted Date Diagnosed Date Pure hypercholesterolemia 10/08/2015 Immunizations Immunization Administration Dates Next Due MMR (MMR II/Priorix) 10/08/2015 PPD 10/08/2015 TDAP 10/08/2015 Family History Relation Name Status Comments Brother Alive Father Alive Mother Sister Alive Social History Tobacco Use Types Packs/Day Years Used Date Smoking Tobacco: Never Alcohol Use Standard Drinks/Week Comments No 0 (1 standard drink = 0.6 oz pur e alcohol) Sex and Gender Information Value Date Recorded Sex Assigned at Not on file Legal Sex Male 8:22 AM PDT Gender Identity Not on file Sexual Orientation Not on file Last Filed Vital Signs Vital Sign Reading Time Taken Comments Blood Pressure 128/72 10/08/2015 10:13 AM EDT Pulse 84 10/08/2015 10:13 AM EDT Temperature 36.2 ??C (97.2 ??F) 10/08/2015 10:13 AM E DT Respiratory Rate 18 10/08/2015 10:13 AM EDT Oxygen Saturation - - Inhaled Oxygen Concentration - - Weight 84.4 kg (186 lb) 10/08/2015 10:13 AM EDT Height 162.6 cm (5' 4 ) 10/08/2015 10:13 AM EDT Body Mass Index 31.93 10/08/2015 10:13 AM EDT Plan of Treatment Not on file Insurance [employer] Care Teams Basting Marker Relationship Specialty Start Date End Date Len Gutierrez MD [address] [place] [address] PCP - General Internal Medicine 09/24/15
--- OUTSIDE RECORDS SUMMARY | 2024-08-01 12:57 | XMS_ITS | Encounter Summary ---
Author Organization [facility] Address [address] [place] [address] [address] [place] [address] Care Team Providers Care Loan Servicing Specialist Name Role Phone Siena Dumas MD Primary Care Provider [phone] Claudia Wilcox MD Primary Care Provider Encounter Details Date Type Department Care Team (Latest Contact Info) Description 03/06/2020 Abstract [facility] CONVERSIONS Dental, Provider, DDS Social History Tobacco [...] Description 08/24/2024 9:45 AM EDT Office Visit [facility] MED & PEDS [address] [place] [address] Claudia Wilcox MD [address] [place] [address] documented as of this encounter Visit Diagnoses Not on filedocumented in this encounter Care Teams Loan Servicing Specialist Relationship Specialty Start Date End Date Siena Dumas MD [address] [place] [address] PCP - General Family Medicine 12/18/12 11/28/23 Claudia Wilcox MD [address] [place] [address] PCP - General Family Medicine 11/29/23 documented as of this encounter
--- OUTSIDE RECORDS SUMMARY | 2024-08-01 12:57 | XMS_ITS | Clinical Summary ---
Author Organization [facility] Address [address] [place] [address] Care Team Providers Care Registered Nurse Cardiac Name Role Phone Siena Dumas Primary Care Provider [phone] Allergies No known active allergies Medications omeprazole (PriLOSEC) 20 mg capsule Take 20 mg by mouth daily. 5 8 Active simvastatin (ZOCOR) 10 mg tablet Take 10 mg by mouth every evening. 3 8 Active bismuth subsalicylate (PEPTO BISMOL) 262 mg/15 mL suspension Take 15 mL by mouth as needed for diarrhea (only when needed - not regularly). Active ARTIFICIAL TEARS,[id number] , 1-0.2-0.2 % drops 0 Active ibuprofen (MOTRIN) 800 mg tablet Take 800 mg by mouth 3 times a day. 0 Active aspirin chewable tablet 81 mg Chew and swallow 81 mg by mouth once a day. Active Active Problems Problem Noted Date Diagnosed Date H. pylori infection 08/10/2018 Chronic abdominal pain 01/11/2018 Overview (01/11/2018): Added automatically from request for surgery [id number] Social History Tobacco Use Types Packs/Day Years [...] 11/17/2023 2:01 PM EDT Plan of Treatment Health Maintenance Due Date Last Done Comments FOBT / Fit Test 1974 Hepatitis C Screening 1974 Sigmoidoscopy 1974 Hepatitis B Vaccines (1 of 3 - 19+ 3-dose series) 1993 COVID-19 Vaccine (4 - 2023-2 5 season) 2023 03/18/2021, 07/14/2020, 06/16/2020 Alcohol/Substance Use Screening 04/04/2024 Depression Screening and Follow-Up 04/04/2024 Social Drivers of Health Juliet ual Screening 04/04/2024 Pneumococcal Vaccine: 50+ Ye ars (1 of 1 - PCV) 2024 Zoster Vaccines (1 of 2) 2024 Influenza Vaccine (Season Ended) 2024 02/07/2023, 02/05/2022, 01/05/2021, Additional history exists Cologuard 07/06/2026 07/07/2023 DTaP,Tdap,and Td Vaccines (3 - Td or Tdap) 01/18/2027 01/18/2017, 10/08/2015 Colon Cancer Screening 12/13/2033 Colonoscopy 12/13/2033 12/14/2023, 12/14/2023 RSV Vaccine (60+ years old a nd patients) (1 - 1-dose 75+ series) 2049 HIV Screening Completed 12/10/2020, 12/10/2020 Procedures * Due to [place] state law, this organization might not be sharing negative HIV tests. Procedure Name Priority Date/Time Associated Diagnosis Comments COLONOSCOPY 12/14/2023 from Last 3 Months or Most Recently Relevant to Health Maintenance Results * Due to [place] state law, this organization might not be sharing negative HIV tests. * COLONOSCOPY (12/14/2023) Narrative Procedure Note Ana Zapata, DO - 12/14/2023 8:35 AM EDT [facility] Gastroenterology Patient Name: Irvin Loomis Procedure Date: [...] by the physician, the nurse and the biometrics technician in the endoscopy suite. Mental Status [...] pulse, and oxygen saturations were monitored continuously. [id number] was introduced through the anus andadvanced to [...] specimen was done by the nurse and biometrics technician. Estimated blood loss was minimal. The [...] Most Recently Relevant to Health Maintenance Insurance [facility] HSNO/FREE CARE Advance Directives * Full Code (Latest Code Status on File) Date Activated Date Inactivated Comments 12/14/2023 8:50 AM 12/14/2023 12:40 PM Care Teams Registered Nurse Cardiac Relationship Specialty Start Date End Date Siena Dumas [address] [place] [id number] PCP - General Family Medicine 10/21/17
[2024-08-01 16:37] LABS: CT PCR NOT DETECTED (Not Detect.); NG PCR NOT DETECTED (Not Detect.)
[2024-08-05 17:04] LABS: C.Trachomatis RNA TMA, Rectal NOT DETECTED; N.Gonorrhoeae RNA TMA, Rectal NOT DETECTED
== END 2024-08-01 11:18 | disposition home or self-care (01) ==
LOC: HO.CHCLNP 11:17
PROVIDERS: Visit Provider Internal Medicine
DX: K62.89 Other specified diseases of anus and rectum (principal); R10.2 Pelvic and perineal pain; G89.29 Other chronic pain
CPT/HCPCS: 87491; 87591

== ENCOUNTER 2024-10-30 15:00 | Outpatient (AMB) | payer OTHER, SELFPAY ==
[2024-10-30 15:14] VITALS: BP 137/87; PULSE 85; BMI 31.3
--- NOTE | 2024-10-30 15:14 | A.OFFVIS_ITS ---
Vital Signs 10/30/24 15:14 Height 5 ft 4 in Weight 182 lb 1.629 oz BMI 31.3 BP 137/87 Blood Pressure Location Lt brachial Position Sitting Pulse 85 Intake Visit Reasons: Chronic abdominal pain Intake Note: New patient in office today for chronic abdominal pain. CC: Patient c/o abdominal pain for a year, rectal burning and itching, increased flatulence, constipation,and occasional fecal incontinence. Patient reports that he used to be seen at [facility] d/t his medical insurance. He also c/o abdominal bloating. Patient takes Omeprazole for GERD and report good management of symptoms. 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 ? he is referred by [facility]. PMX Obesity-BMI 33 Hypertension Diabetes Hemorrhoids * SURGICAL HISTORY Orthodontic procedure [place] teeth extraction * ALLERGIES: NKDA * MEDITECH LABS: None since 02/2024 TODAY'S VISIT Apparently the patient has been seen at [facility] in the past for this. He was seen there for about a year, but it because too far for him to travel. Onset 4 years of bloating after eating. He also has a lot of rectal burning and itching and there is liquid that comes out. It does not stain the underwear, but his rectum feels wet. HE suffers CIC. He may go for 2 days w/o a BM, and when he does move his bowels they are long and skinny. He has used Miralax and bisacodyl, but he was told to only take it prn and not daily. He had no success with senna, fiber, or colace. He denies any weight loss, he was told he needs to lose weight because he is diabetic. He also denies any nausea vomiting or trouble swallowing. He will have pain only occasionally in the bilateral lower quadrants that is intermittent. He only of heartburn if she forgets to take his omeprazole. He had a colonoscopy about 6 mos ago at [facility]. He was told only that he had polyps. The only other study he can remember is something where I had to drink a white liquid. HIs PCP told him he had roids. He has tried creams in the past w/o good results. He does not know of any FHX of similar sx - he had a brother who passed of ca but he dose not know what type. He does not know if there is a family history of gallbladder disease, but he did have a CAT scan in 2022 showing a normal gallbladder without stones. I want to give him a trial of Linzess. We will start 145 micro g and titrate to affect her side effect. Get records from [facility]. He says he also was tx'd for ulcers but does not know more. He may have had an EGD. ROV 4 weeks. [facility] Medical History (Updated 10/30/24 @ 16:19 by GANGA Cormier) Gastritis HTN (hypertension) Surgical History (Updated 10/30/24 @ 16:19 by GANGA Cormier) H/O wisdom tooth extraction H/O colonoscopy Family History (Updated 10/30/24 @ 15:25 by Richi Rivera [facility]) Brother Cancer Social History Alcohol intake: former Comment: Occasionally in the past Patient Tobacco Use Status: Never used Tobacco Review of Systems Const Denies fatigue, Denies fever(s), Denies night sweats, Denies poor appetite and Denies weight loss ENT Reports Normal hearing present, Denies dental pain, Denies dysphagia, Denies hearing loss, Denies mouth pain, Denies odynophagia, Denies throat swelling, Denies tongue swelling and Reports other (Dentition adequate) Card Reports no additional complaints Resp Reports no additional complaints GI Details: Reports abdominal pain, Denies melena, Reports bloating, Denies hematochezia, Reports constipation, Denies GI cramping, Denies dysphagia, Denies excessive flatus, Denies early satiety, Reports heartburn, Denies diarrhea, Denies nausea, Denies odynophagia, Denies vomiting and Denies hematemesis Skin/Breast Denies pruritus, Denies lesions, Denies rash and Denies jaundice Neuro Reports Normal hearing present and Denies Abnormal speech present Endo Denies fatigue Aller/Immun Denies throat swelling and Denies tongue swelling Physical Exam Const General: cooperative, no acute distress, well developed and well groomed Nutritional Appearance: well nourished and obese centrally obese Orientation/consciousness: oriented to person, oriented to place and oriented to time Limitations: language barrier HEENT Head: Yes normocephalic and Yes atraumatic Eyes General: appearance normal, both eyes and all related structures Pupils: Equal, round and reactive pupils present Neck Neck: Yes normal visual inspection and Yes no lymphadenopathy Thyroid: Thyroid normal Resp Effort & Inspection: normal respiratory effort and able to speak in complete sentences Auscultation: clear to auscultation bilaterally Cardio Rate: regular rate Rhythm: regular rhythm Heart sounds: Normal, physiologic split S2 sound present Peripheral pulses: radial pulses present and posterior tibial pulses present GI Inspection: Yes distended, Yes Abdominal panniculus present and Yes obesity Palpation (GI): Soft to palpation, Tenderness to palpation present (GI) (Mild) in the LLQ, no guarding, not rigid and No hepatosplenomegaly present Percussion: Yes normal to percussion Auscultation: normal bowel sounds Rectal Exam - Male: Yes deferred Skin General skin exam: no rashes or lesions noted, turgor normal, skin not dry, no jaundice, No spider nevi and no striae Rashes: no rashes Nails: normal Neuro General: oriented to person, oriented to place and oriented to time Cranial nerves: Yes Equal, round and reactive pupils present and Yes Normal hearing present Speech: No Abnormal speech present Extrem General: Yes normal to inspection, No clubbing, No cyanosis and No edema Psych Appearance: grossly normal and well kempt Mental Status: mental status grossly normal Speech and movement: Normal speech and movement present Affect: normal affect Attitude: cooperative Thought process: Circumstantial thought process present and not confabulating Thought content: Normal thought content present Insight: Limited insight present (Psych) Judgement: Limited judgement present (Psych) Assessment & Plan Assessment & Plan (1) Chronic idiopathic constipation: Code(s): K59.04 - Chronic idiopathic constipation Category: Medical (2) Abdominal bloating: Code(s): R14.0 - Abdominal distension (gaseous) Category: Medical (3) GERD (gastroesophageal reflux disease): Code(s): K21.9 - Gastro-esophageal reflux disease without esophagitis Category: Medical Plan Apparently the patient has been seen at [facility] in the past for this. He was seen there for about a year, but it because too far for him to travel. Onset 4 years of bloating after eating. He also has a lot of rectal burning and itching and there is liquid that comes out. It does not stain the underwear, but his rectum feels wet. HE suffers CIC. He may go for 2 days w/o a BM, and when he does move his bowels they are long and skinny. He has used Miralax and bisacodyl, but he was told to only take it prn and not daily. He had no success with senna, fiber, or colace. He denies any weight loss, he was told he needs to lose weight because he is diabetic. He also denies any nausea vomiting or trouble swallowing. He will have pain only occasionally in the bilateral lower quadrants that is intermittent. He only of heartburn if she forgets to take his omeprazole. He had a colonoscopy about 6 mos ago at [facility]. He was told only that he had polyps. The only other study he can remember is something where I had to drink a white liquid. HIs PCP told him he had roids. He has tried creams in the past w/o good results. He does not know of any FHX of similar sx - he had a brother who passed of ca but he dose not know what type. He does not know if there is a family history of gallbladder disease, but he did have a CAT scan in 2022 showing a normal gallbladder without stones. I want to give him a trial of Linzess. We will start 145 micro g and titrate to affect her side effect. Get records from [facility]. He says he also was tx'd for ulcers but does not know more. He may have had an EGD. ROV 4 week Orders: Orders Complete Blood Count Auto Diff Today K59.04 - Chronic idiopathic constipation Amylase Today K59.04 - Chronic idiopathic constipation Comprehensive Met. Panel Today K59.04 - Chronic idiopathic constipation TSH reflex Free T4 Today K59.04 - Chronic idiopathic constipation Lipase Today K59.04 - Chronic idiopathic constipation Medications: New linaclotide (Linzess) Take first thing in the morning with a full glass of water. 145 mcg PO QAM 30 caps 3RF K58.1 - Irritable bowel syndrome with constipation Coding Level of Care Code New Pt Level 3 (13663) Diagnoses Chronic idiopathic constipation K59.04 Abdominal bloating R14.0 GERD (gastroesophageal reflux disease) K21.9
--- OUTSIDE RECORDS SUMMARY | 2024-10-30 15:53 | XMS_ITS | Encounter Summary ---
Author Organization [facility] Address [address] [place] [address] Care Team Providers Care Illusionist Name Role Phone Siena Dumas Primary Care Provider [phone] Encounter Details Date Type Department Care Team (Latest Contact Info) Description 08/08/2023 Transcribe Orders [facility] Physician Referral Services [address] [place] [address] Siena Dumas [address] [place] [address] Hemorrhoids, unspecified hemorrhoid type (Primary Dx) Social [...] Primary documented in this encounter Care Teams Illusionist Relationship Specialty Start Date End Date Siena Dumas [address] [place] [address] PCP - General Family Medicine 10/21/17 documented as of this encounter
--- OUTSIDE RECORDS SUMMARY | 2024-10-30 15:53 | XMS_ITS | Clinical Summary ---
Author Organization [facility] Address [address] [place] [address] Care Team Providers Care Helper/Driver Name Role Phone Len Gutierrez MD Primary Care Provider [phone] Source Comments PLEASE NOTE, if this patient [...] 84 10/08/2015 10:13 AM EDT Temperature 36.2 C (97.2 F) 10/08/2015 10:13 AM EDT Respiratory Rate 18 10/08/2015 10:13 AM EDT Oxygen Saturation - - Inhaled Oxygen Concentration - - Weight 84.4 kg (186 lb) 10/08/2015 10:13 AM EDT Height 162.6 cm (5' 4 ) 10/08/2015 10:13 AM EDT Body Mass Index 31.93 10/08/2015 10:13 AM EDT Plan of Treatment Not on file Insurance [employer] Care Teams Helper/Driver Relationship Specialty Start Date End Date Len Gutierrez MD [address] [place] [address] PCP - General Internal Medicine 09/24/15
== END 2024-10-30 16:44 | disposition home or self-care (01) ==
LOC: HO.HGI 15:01
PROVIDERS: PCP Family Medicine; Visit Provider Nurse Practitioner
DX: K59.04 Chronic idiopathic constipation (principal); R14.0 Abdominal distension (gaseous); K21.9 Gastro-esophageal reflux disease without esophagitis
CPT/HCPCS: 99203

== ENCOUNTER 2024-10-30 15:00 | Outpatient (REF) | payer OTHER, SELFPAY ==
[2024-10-30 16:29] LABS: MANUAL DIFF FLAG NO
--- OUTSIDE RECORDS SUMMARY | 2024-10-30 16:44 | XMS_ITS | Clinical Summary ---
Author Organization [employer] Address [address] [facility] [address] [place] [address] Care Team Providers Care Technical Spec Name Role Phone Claudia Wilcox MD Primary Care Provider [phone] Allergies No known active allergies Medications acetaminophen (Tylenol) 325 MG tablet Take 1 tablet by mouth every 4 (four) hours. 0 Active dextran 70-hypromellose (dextran-70 & hydroxypropyl methylcellulose) 0.1-0.3 % ophthalmic solution insert 1 drop in the right eye 6 times daily as needed Active meclizine (Antivert) 25 MG tablet Take 1 tablet by mouth at bed time. 0 Active ondansetron ODT (Zofran-ODT) 4 MG disintegrating tablet DISSOLVE ONE TABLET ON TONGUE EVERY 8 HOURS NEEDED FOR NAUSEA AND VOMITING 20 tablet 4 Active hydroCHLOROthiazid e (HYDRODiuril) 25 MG [...] TIMES DAILY 90 tablet 3 5 Active omeprazole (PriLOSEC) [address] capsuleIndications :GERD without esophagitis TAKE ONE CAPSULE EVERY DAY 90 capsule 1 5 Active simvastatin (Zocor) 10 MG tabletIndications: Hypercholesterolem ia TAKE ONE TABLET AT BEDTIME 90 tablet 1 5 Active aspirin (Aspirin Adult Low Strength) 81 MG EC tabletIndications: Primary hypertension TAKE ONE TABLET BY MOUTH EVERY MORNING 90 tablet 1 5 Active metFORMIN (Glucophage) 500 MG tablet Take 1 tablet (500 mg) by mouth at bedtime. 30 tablet 2 5 Active hydrocortisone (Anusol-HC) 2.5 % rectal creamIndications:A nal pruritus Insert into the rectum 2 times daily. 60 g 5 Active Active Problems Problem Noted Date Diagnosed Date Neuropathy 08/24/2024 Internal hemorrhoid 02/09/2024 Assessment & Plan (02/10/2024 [...] be triggering his symptoms. Rectal pain 02/07/2024 Assessment & Plan (08/28/2024 10:05 AM EDT): Patient reports rectal wetness, burning, and itching due to hemorrhoids. Symptoms may be exacerbated by dilated veins causing sweating in the area. Plan: - Consider referral to weighmaster lead for further evaluation and possible treatment Gastritis 02/07/2024 Prostate infection 07/04/2023 Assessment & [...] obtain test results from previous visits to [facility] and [facility]. Anal pruritus 07/04/2023 Assessment & Plan (09/18/2024 8:20 AM EDT): Patient reports rectal itching. Differential diagnoses include hemorrhoids, skin tags, or other anorectal conditions. Plan: - Prescribed Anusol cream for topical application to affected area Chronic has followup w/ GI History of Helicobacter pylori infection 023 Overview (02/08/2023): Previously followed by [facility] - Dr. Hidalgo (last available consult note 08/10/18) Abdominal discomfort 02/08/2023 Assessment & Plan (02/08/2023 9:00 AM EST): Clinical presentation c/w GERD, however would like to confirm that H. Pylori had been successfully treated Plan: Stop PPI x 2 weeks, complete testing for H. Pylori (pt preference for stool sample over breath test). After sample provided, may resume PPI Reviewed lifestyle interventions to decrease symptoms including avoid triggering foods (such as coffee, chocolate, fatty foods), avoid eating 2-3 hours before lying down, and enourage weight loss. Education handout provided ED/urgent care precautions reviewed Hypertensive disorder 12/05/2020 Prediabetes 12/05/2020 Assessment & Plan (09/18/2024 8:18 AM EDT): Patient reports blood glucose of 105 mg/dL post-prandial, which is within target range. Current medication regimen includes one pill at night, started last month. Patient has lost 4 pounds in 2 weeks. Foot tingling reported, suggesting possible neuropathy. Plan: - cont metformin - Laboratory tests: - Order comprehensive metabolic panel and lipid panel prior to next appointment - Referral to needle EMG study for evaluation of foot tingling - Continue with prescribed diet - Follow-up appointment in 3 months - Patient education: - Advised to avoid excessive sugar intake, particularly while in [place] Assessment & Plan (08/28/2024 10:04 AM EDT): Patient has an A1C of 6.3, indicating pre-diabetes. They experience coldness, fatigue at work, and burning sensations in both feet, which may be early signs of peripheral neuropathy due to elevated blood sugar levels. Current diet includes high-carbohydrate foods such as corn tamalito and flour-based products. Plan: - Initiate Metformin: - Start with 250 mg PO at bedtime for 1 week - If tolerated, increase to 500 mg PO at bedtime - Informed patient of potential side effect: diarrhea - Advised to discontinue if side effects are intolerable - Order fasting blood glucose test in 1 month - Follow-up appointment scheduled for September 17 at 3:30 PM - Educate on importance of reducing carbohydrate intake (rice, bread, tortillas) and increasing protein consumption - Recommend consultation with a tip banding machine operator (patient previously advised but found it difficult to follow recommendations) Obesity 12/05/2020 Assessment & Plan (02/13/2024 8:05 PM EST): Discussed calorie deficit, recommended reduction of 20-30% of maintenance calories; tip banding machine operator referral offered. Recommended to decrease soda and sugary beverage consumption. Recommended at least 20 g per meal of protein to assist with satiety. Recommended at least 150 min/week of moderate intensity exercise. H. pylori infection 08/10/2018 Chronic abdominal pain 01/11/2018 Overview (02/07/2024): Added automatically from request for surgery [id number] Assessment & Plan (08/28/2024 10:06 AM EDT): Diffuse abdominal pain associated with rectal wetness, reports also intolerance to pork meat. At this moment, refer to GI. He has had endoscopies & colonoscopies done in [facility]. Pure hypercholesterolemia 10/08/2015 Encounters Date Type Department Care Team Description 09/17/2024 3:30 PM EDT Office Visit [facility] [address] [place] [address] Claudia Wilcox MD Anal pruritus (Primary Dx); Prediabetes; Numbness and tingling of both feet 09/17/2024 Travel 09/14/2024 Telephone [facility] [address] [place] [address] Claudia Wilcox MD Chart Prep 08/24/2024 9:45 AM EDT Office Visit [facility] [address] [place] [address] Claudia Wilcox MD Prediabetes (Primary Dx); Neuropathy; Anal pruritus; Rectal pain; Chronic abdominal pain; Encounter for immunization 08/24/2024 Travel 08/15/2024 Patient Outreach [facility] [address] [place], [place] [phone] Claudia Wilcox MD Pre-visit Planning (Pre visit planning LVM ) 08/14/2024 Refill [facility] [address] [place] [address] Claudia Wilcox MD GERD without esophagitis; Hypercholesterolemia ; Primary hypertension 08/06/2024 Telephone [facility] [address] [place] [address] Claudia Wilcox MD Results (Amy Toscano MD [facility]/Please call patient and inform him his rectal tests for gonorrhea and chlamydia were negative. Please let him know I think the best course of action with regards to this pain is to discuss it with Dr. Wilcox at his appointment on08/24/2024 9:45 AM./) 08/01/2024 9:40 AM EDT Office Visit [facility] [address] [place] [address] Amy Toscano MD Rectal pain (Primary Dx); Chronic suprapubic pain; Chronic abdominal pain 08/01/2024 Travel 07/31/2024 3:00 PM EDT Office Visit [facility] [address] [place] [address] Zeb Robb Dental calculus (Primary Dx) 07/31/2024 Telephone [facility] [address] [place] [address] Claudia Wilcox MD triage from Last 3 Months Immunizations Immunization Administration Dates Next Due Influenza Injectable Quadriv alant Preservative Free IIV4 MDCK 02/05/2022 Influenza injectable quadriv alent IIV4 with preservative 03/18/2015 Influenza injectable quadriv alent preservative free 02/07/2023,01/05/2021,12/27/2018,2016,01/22/2016 Influenza, IIV3, injectable 02/25/2014 Influenza, Split (incl. meeta fied surface antigen) 01/30/2013 Influenza, seasonal, injecta ble, preservative free 02/09/2024 MMR 10/08/2015 PPD Test 10/08/2015 Pneumococcal Conjugate PCV 20 08/24/2024 Tdap 01/18/2017,10/08/2015 Zoster, Recombinant 08/24/2024 Social History Tobacco Use Types Packs/Day Years [...] your housing situation today? I have wicho alistair 02/09/[address] you li [...] Sign Reading Time Taken Comments Blood Pressure 124/92 09/17/2024 3:18 PM EDT Pulse 60 09/17/2024 2:59 PM EDT Temperature 36.6 C (97.8 F) 09/17/2024 2:59 PM EDT Respiratory Rate 18 09/17/2024 2:59 PM EDT Oxygen Saturation 97% 09/17/2024 2:59 PM EDT Inhaled Oxygen Concentration - - Weight 84.4 kg (186 lb) 09/17/2024 2:59 PM EDT Height 162 cm (5' 3.78 ) 09/17/2024 2:59 PM EDT Body Mass Index 32.15 09/17/2024 2:59 PM EDT Plan of Treatment Upcoming Encounters Date Type Department Care Team (Late st Contact Info) Description 11/02/2024 3:00 PM EDT Nurse Only [facility] [address] [place] [address] 11/20/2024 11:15 AM EDT Office Visit [facility] [address] [place] [address] Brayan Robb MD [address] [place] [address] 01/31/2025 3:00 PM EDT Office Visit [facility] [address] [place] [address] Rayna Ware Health Maintenance Due Date Last Done Comments CT Colonography 1974 FIT 1974 Sigmoidoscopy 1974 Disability Screening 1974 Family Planning (PISQ) 1989 Hepatitis B Vaccines (1 of 3 - 19+ 3-dose series) 1993 COVID-19 Vaccine (4 - 2023- season) 2023 03/18/2021, 07/14/2020, 06/16/2020 FOBT 07/06/2024 07/07/2023 Zoster Vaccines (2 of 2) 10/19/2024 08/24/2024 Influenza Vaccine (#1) 2024 , 02/07/2023, 02/05/2022, Additional history exists Dental Oral Exam 01/31/2025 07/31/2024 Dental Prophylaxis 01/31/2025 07/31/2024, 1 , 07/21/2023 Alcohol/Substance Use Screening 02/08/2025 02/09/2024 Depression Screening 02/08/2025 02/09/2024, 02/09/20 24 SDOH Screening 02/08/2025 02/09/2024 Dental X-Ray: Bitewings 08/01/2025 08/01/19 25, 07/21/2023, 07/01/2022 Diabetes: Hemoglobin A1C 08/24/2025 025, 08/01/2023, 06/22/2022, Additional history exists Tobacco Screening 08/24/2025 08/24/2024 FIT DNA/Cologuard 07/06/2026 07/07/2023 Dental X-Ray: Full Mouth 07/21/2026 07/21/2023 DTaP/Tdap/Td Vaccines (3 - Td or Tdap) 01/18/2027 01/18/2017, 10/08/2015 Colonoscopy 12/13/2028 12/14/2023, 12/14/2023 Colorectal Cancer Screening 12/13/2028 Lipid Panel 02/08/2029 02/09/2024, 03/2 04/2022, 12/10/2020, Additional history exists RSV Patients and Patients Aged 60 years or older (1 - 1-dose 75+ series) 2049 HIV Screening Completed 02/09/2024, 12/10/2020 Hepatitis C Screening Completed 02/09/2024 Pneumococcal Vaccine: 50+ Years Completed 08/24/2024 HIB Vaccines Aged Out No longer eligi [...] patient's age to complete this topic Meningococcal B Vaccine Aged Out No l onger eligible based on patient's age to complete [...] Procedure Name Priority Date/Time Associated Diagnosis Comments POCT GLUCOSE Routine 09/17/2024 3:01 PM EDT Prediabetes POCT GLYCATED HEMOGLOBIN, TOTAL Routine 08/24/2024 10:25 AM EDT Prediabetes POCT GLUCOSE Routine 08/24/2024 10:25 AM EDT Prediabetes CHLAMYDIA/N. GONORRHOEAE RNA, TMA, UROGENITAL Routine 08/01/2024 12:00 AM EDT Chronic suprapubic pain CHLAMYDIA/N. GONORRHOEAE RNA, TMA, RECTAL Routine 08/01/2024 12:00 AM EDT Rectal pain COMPREHENSIVE PERIODONTAL EVALUATION - NEW OR ESTABLISHED [...] HM COLONOSCOPY Routine 12/14/2023 11:50 AM EDT INTRAORAL - COMPLETE SERIES OF RADIOGRAPHIC IMAGES Routine 07/21/2023 3:00 PM EDT LAB COLOGUARD COLON CANCER SCREEN Routine 07/07/2023 9:08 PM EDT Colon cancer screening from Last 3 Months or Most Recently Relevant to Health Maintenance Results * POCT glucose manually resulted (09/17/2024 3:01 PM EDT) Only the most recent of2 resultswithin the time period is included. Glucose Blood, POC 105 60 - 200 mg/dL QC Media Lot # Comment:[id number] Lot# Expiration Date Comment:12/16/2024 Blood Capillary blood specimen / Unknown 09/17/2024 3:01 PM EDT Claudia Wilcox MD POINT OF CARE TEST ENTER/EDIT ORDERABLES Final Result * (ABNORMAL) POCT HGB A1C (08/24/2024 10:25 AM EDT) Hemoglobin A1C 6.3(A) 4.0 - 6.0 % QC Media Lot # [id number] Lot# Expiration Date [id number] Blood 08/24/2024 10:2 5 AM EDT Claudia Wilcox MD POINT OF CARE TEST ENTER/EDIT ORDERABLES Final Result * Chlamydia/N. Gonorrhoeae RNA, TMA, Rectal (08/01/2024 12:00 AM EDT) C.Trachomatis RNA TMA, Rectal NOT DETECTED [facility] N.Gonorrhoeae RNA TMA, Rectal NOT DETECTED [facility] Comment:REFERENCE RANGE: NOT DETECTEDMethodology: Desk Pens Assembler Mediated Amplification (TMA) to detect RNA.The analytical performance characteristics of this assayhave been determined by [employer]. The modificationshave not been cleared or approved by the FDA. This assay hasbeen validated pursuant to the CLIA regulations and is usedfor clinical purposes.THIS TEST WAS PERFORMED AT:[employer] [id number] [facility]IC[facility] [address]CPVCMCRISTOBAL WHITTAKER MD,PHD,PRAKASH Swab Rectal contents / Unknown 08/01/2024 08/01/2024 Amy Toscano MD LAB MICROBIOLOGY - GENERAL OR DERABLES Final Result [facility] [address] [place] [phone] * Chlamydia/N. Gonorrhoeae RNA, TMA, Urogenitial (08/01/2024 12:00 AM EDT) CT PCR NOT DETECTED Not Detect. [facility] Comment:A not detected test result does not exclude the possibilityof infection because test results can be affected byimproper specimen collection, concurrent antibiotic therapy,or the number of organisms in the specimen which may bebelow the sensitivity of the test. As with many diagnostictests, results from the Xpert CT/NG assay should beinterpreted in conjunction with other laboratory andclinical data available to the clinician.Xpert CT/NG performance has not been evaluated in patientsless than 14 years of age. The assay should not be used forthe evaluationof suspected sexual abuse or for other medico-legalindications. Additional testing is recommended in anycircumstance when false positive or false negative resultscould lead to adverse medical, social or psychologicalconsequences. NG PCR NOT DETECTED Not Detect. [facility] Comment:A not detected test result does not exclude the possibilityof infection because test results can be affected byimproper specimen collection, concurrent antibiotic therapy,or the number of organisms in the specimen which may bebelow the sensitivity of the test. As with many diagnostictests, results from the Xpert CT/NG assay should beinterpreted in conjunction with other laboratory andclinical data available to the clinician.Xpert CT/NG performance has not been evaluated in patientsless than 14 years of age. The assay should not be used forthe evaluationof suspected sexual abuse or for other medico-legalindications. Additional testing is recommended in anycircumstance when false positive or false negative resultscould lead to adverse medical, social or psychologicalconsequences. Urine (Urine, Random) 08/01/2024 08/01/2024 Narrative [facility] - 08/01/2024 4:38 PM EDT Urine us Amy Toscano MD LAB MICROBIOLOGY - GENERAL OR DERABLES Final Result Performing Organization Address [facility]/ZIP Co de Phone Number [facility] [address] [place] [phone] * Hepatitis C Antibody with Reflex to HCV, RNA, Quantitative, Real-Time PCR (02/09/2024 1:14 PM EST) Hepatitis C Antibody Nonreactive Nonreactive [facility] Comment:Antibodies to HCV no t detected; does not exclude early acuteHCV infection. Blood Venous blood specimen / Unknown 02/09/2024 1:14 PM EST 02/09/2024 2:50 PM EST us Claudia Wilcox MD LAB BLOOD ORDERABLES Final Re sult [facility] [address] [place] [phone] * HIV-1/2 Antigen and Antibodies, Fourth Generation, with Reflexes (02/09/2024 1:14 PM EST) HIV AB/AG Nonreactive Nonreactive [facility] Comment:HIV-1 p24 Ag and/or HIV-1/HIV-2 Ab not detected.A test result that is nonreactive does not exclude thepossibility of exposure to or infection with HIV-1 and/orHIV-2. Nonreactive results in this assay for individualswith prior exposure to HIV-1 and/or HIV-2 may be due toantigen and antibody levels that are below the limit ofdetection of this assay.The mParticleniTSB HIV Ag/Ab Combo assay result andsupplemental assay results should be interpreted inconjunction with the patient's clinical presentation,history and other laboratory results. If the results areinconsistent with clinical evidence, additional testing issuggested to confirm the result. Blood Venous blood specimen / Unknown 02/09/2024 1:14 PM EST 02/09/2024 2:50 PM EST us Claudia Wilcox MD LAB BLOOD ORDERABLES Final Re sult [facility] [address] [place] [phone] * (ABNORMAL) Lipid Panel, Standard (02/09/2024 1:14 PM EST) Triglycerides 120 <150 mg/dL [facility] Comment:Desirable Triglyceri de: less than 150 mg/dLBorderline High Triglyceride 150-199 mg/dLHigh Triglyceride: 200-499 mg/dLVery High Triglyceride: greater than or equal to 5OO mg/dL Cholesterol 219(H) <200 mg/dL [facility] Comment:Desirable Cholestero l: less than 200 mg/dLBorderline High Cholesterol: 200-239 mg/dLHigh Cholesterol: greater than 239 mg/dL LDL Cholesterol Calculated 149(H) <100 mg/dL [facility] Comment:Desirable LDL: less than 100 mg/dLNear Optimal/Above Optimal LDL: 110- 129 mg/dLBorderline High LDL: 130-159 mg/dLHigh LDL: 160-189 mg/dLVery High LDL: greater than or equal to 190 mg/dL HDL Cholesterol 46 >40 mg/dL [facility] Comment:Desirable HDL: great er than 40 mg/dL Note: This HDL assay may give artificially low results in patients with liver disease. Blood Venous blood specimen / Unknown 02/09/2024 1:14 PM EST 02/09/2024 2:50 PM EST Claudia Wilcox MD LAB BLOOD ORDERABLES Final Re sult [facility] [address] [place] [phone] * Colonoscopy (12/14/2023 11:50 AM EDT) Historical Provider HEALTH MAINTENANCE Final Result * Cologuard?? colon cancer screening (07/07/2023 9:08 PM EDT) Cologuard Result Negative Negative 07/14/19 24 8:34 PM EDT [employer] (CLIA #:[id number]) Comment: NEGATIVE TEST RESULT. A negative Cologuard result indicates a low likelihood that a colorectal cancer (CRC) or advanced adenoma (adenomatous polyps with more advanced pre-malignant features) is present. The chance that a person with a negative Cologuard test has a colorectal cancer is less than 1 in 1500 (negative predictive value >99.9%) or has an advanced adenoma is less than 5.3% (negative predictive value 94.7%). These data are based on a prospective cross-sectional study of 10,000 individuals at average risk for colorectal cancer who were screened with both Cologuard and colonoscopy. (Meche Pagan al, N Engl J Med 2014;370(14):8711-8714) The normal value (reference range) for this assay is negative. COLOGUARD RE-SCREENING RECOMMENDATION: Periodic colorectal cancer screening is an important part of preventive healthcare for asymptomatic individuals at average risk for colorectal cancer. Following a negative Cologuard result, the [place] [employer] Society and U.S. Multi-Society Task Force screening guidelines recommend a Cologuard re-screening interval of 3 years. References: [place] [employer] Guideline for Colorectal Cancer Screening: https://www.cancer.org/cancer/labby-afwdsb-tpnyzq/skzlakrlq-cuighufja-kwejfrv/ac s-rec ommendations.html.; Lev DK, Jacob CR, Wanda RaoK, Colorectal Cancer Screening: Recommendations for Physicians and Patients from the U.S. Multi-Society Task Force on Colorectal Cancer Screening , Am J Gastroenterology 2017; 112:2512-7659. TEST DESCRIPTION: Composite algorithmic analysis of stool DNA-biomarkers with hemoglobin immunoassay. Quantitative values of individual biomarkers are not [...] Alston et al, N Engl J Med 2014;370(14):8983-7013.) Cologuard may produce a false negative or false positive result (no colorectal cancer or precancerous polyp present at colonoscopy follow up). A negative Cologuard test result does not guarantee the absence of CRC or advanced adenoma (pre-cancer). The current Cologuard screening interval is every 3 years. ([place] [employer] Society and U.S. Multi-Society Task Force). Cologuard performance data in a 10,000 patient pivotal study using colonoscopy as the reference method can be accessed at the following location: www.[employer] [facility]/results. Additional description of the Cologuard test process, warnings and precautions can be found at www.cologuard.com. Stool specimen (specimen) 07/07/2023 9:08 PM EDT 07/09/2023 11:39 AM EDT us Claudia Wilcox MD LAB MOLECULAR DIAGNOSTICS ORD ERABLES Final Result [employer] (CLIA #:[id number]) [address] [place] [address], from Last 3 Months or Most Recently Relevant to Health Maintenance Insurance [facility] - HSN FULL (MEDICAID) Care Teams Technical Spec Relationship Specialty Start Date End Date Claudia Wilcox MD [address] [place] [phone] PCP - General Family Medicine 11/29/23
[2024-10-30 17:10] LABS: Hematocrit 40.1 % (42.0-52.0); Hemoglobin 14.3 g/dl (14.0-18.0); Imm Gran Abs Auto 0.03 X10*3/uL (0.00-0.03); Imm Gran Pct Auto 0.4 % (0.0-0.4); Lymphocytes Absolute Auto 2.3 X10*3/uL (1.2-4.9); Mean Corpuscular HGB Conc 35.7 g/dl (31.0-36.0); Mean Corpuscular Hemoglobin 31.2 pg (27.0-33.0); Mean Corpuscular Volume 87.4 fL (80.0-98.0); NRBC Abs Auto 0.000 X10*3/uL (0.0-0.012); NRBC Pct Auto 0.0 /100WBC (0.0-0.2); Platelet Count 192 X10*3/uL (160-400); Red Blood Count 4.59 X10*6/uL (4.60-5.80); White Blood Count 7.9 X10*3/uL (4.8-10.8)
[2024-10-30 17:45] LABS: Alanine Aminotransferase 54 U/L (0-40); Albumin Level 4.8 g/dL (3.5-5.0); Alkaline Phosphatase 96 U/L (39-117); Amylase 54 U/L (28-100); Anion Gap 13 (12-20); Aspartate Amino Transferase 30 U/L (5-37); Blood Urea Nitrogen 15 mg/dL (9-16); Calcium 9.5 mg/dL (8.4-10.2); Carbon Dioxide 30 mmol/L (22-29); Chloride 101 mmol/L (96-108); Estimated Glomerular Filt Rate > 60; Lipase 16 U/L (8-78); Potassium 3.8 mmol/L (3.3-5.1); Sodium 140 mmol/L (135-145); Total Protein 8.0 g/dL (6.5-8.0)
== END 2024-10-30 15:01 | disposition home or self-care (01) ==
LOC: HO.LAB 15:00
PROVIDERS: PCP Family Medicine; Visit Provider Nurse Practitioner
DX: R10.9 Unspecified abdominal pain (principal); K59.04 Chronic idiopathic constipation; R14.0 Abdominal distension (gaseous); K21.9 Gastro-esophageal reflux disease without esophagitis
CPT/HCPCS: 36415; 80053; 82150; 83690; 84443; 85025; 99202

== ENCOUNTER 2024-11-30 10:00 | Outpatient (REF) | payer OTHER, SELFPAY ==
--- OUTSIDE RECORDS SUMMARY | 2024-12-04 11:14 | XMS_ITS | Encounter Summary ---
Author Organization [employer] Address [address] [facility] [address] [place] [address] Care Team Providers Care Windows Support Engineer Name Role Phone Siena Dumas MD Primary Care Provider [phone] Claudia Wilcox MD Primary Care Provider [phone] Encounter Details Date Type Department Care Team (Late st Contact Info) Description 11/24/2023 Orders Only [facility] [address] [place] [address] Provider, MD Emily Social History Tobacco Use [...] documented as of this encounter Care Teams Windows Support Engineer Relationship Specialty Start Date End Date Siena Dumas MD [address] [place] [address] PCP - General Family Medicine 12/18/12 11/28/23 Claudia Wilcox MD [address] [place] [address] PCP - General Family Medicine 11/29/23 documented as of this encounter
--- OUTSIDE RECORDS SUMMARY | 2024-12-04 11:14 | XMS_ITS | Encounter Summary ---
Author Organization [employer] Address [address] [facility] [address] [place] [address] Care Team Providers Care Supervisor Crack Off Name Role Phone Claudia Wilcox MD Primary Care Provider [phone] Encounter Details Date Type Department Care Team (Late st Contact Info) Description 12/14/2023 Orders Only [facility] [address] [place] [address] Provider, MD Emily Social History Tobacco Use [...] documented as of this encounter Care Teams Supervisor Crack Off Relationship Specialty Start Date End Date Claudia Wilcox MD [address] [place] [id number] PCP - General Family Medicine 11/29/23 documented as of this encounter
--- OUTSIDE RECORDS SUMMARY | 2024-12-04 11:14 | XMS_ITS | Encounter Summary ---
Author Organization [employer] Address [address] [facility] [address] [place] [address] Care Team Providers Care Orthopedic Designer Name Role Phone Siena Dumas MD Primary Care Provider [phone] Claudia Wilcox MD Primary Care Provider [phone] Reason for Visit * Reason Onset Date Comments FYI 11/24/2023 Encounter Details Date Type Department Care Team ([facility] st Contact Info) Description 11/24/2023 Telephone [facility] MEDICINE [address] [place] [address] Siena Dumas MD [address] [place], [place] [id number] FYI Social History Tobacco Use Types Packs/Day [...] 11/24/2023 8:37 AM EDT Donald Lynch at [facility] colon and rectal surgery calling to [...] documented as of this encounter Care Teams Orthopedic Designer Relationship Specialty Start Date End Date Siena Dumas MD [address] [place] [address] PCP - General Family Medicine 12/18/12 11/28/23 Claudia Wilcox MD [address] [place] [address] PCP - General Family Medicine 11/29/23 documented as of this encounter
--- OUTSIDE RECORDS SUMMARY | 2024-12-04 11:14 | XMS_ITS | Clinical Summary ---
Author Organization [employer] Address [address] [facility] 7[address] [place] [address] Care Team Providers Care Concrete Paving Machine Operator Name Role Phone Claudia Wilcox MD Primary Care Provider [phone] Allergies No known active allergies Medications acetaminophen [...] the area. Plan: - Consider referral to propulsion motor and generator repairer for further evaluation and possible treatment Gastritis [...] obtain test results from previous visits to [facility] and [facility]. Anal pruritus 07/04/2023 Assessment & Plan (09/18/2024 8:20 AM EDT): Patient reports rectal itching. Differential diagnoses include hemorrhoids, skin tags, or other anorectal conditions. Plan: - Prescribed Anusol cream for topical application to affected area Chronic has followup w/ GI History of Helicobacter pylori infection 023 Overview (02/08/2023): Previously followed by [facility] GI - Dr. Hidalgo (last available [...] avoid excessive sugar intake, particularly while in [place] Assessment & Plan (08/28/2024 10:04 AM EDT): [...] protein consumption - Recommend consultation with a alternative energy technician (patient previously advised but found it difficult to follow recommendations) Obesity 12/05/2020 Assessment & Plan (02/13/2024 8:05 PM EST): Discussed calorie deficit, recommended reduction of 20-30% of maintenance calories; alternative energy technician referral offered. Recommended to decrease soda and sugary beverage consumption. Recommended at least 20 g per meal of protein to assist with satiety. Recommended at least 150 min/week of moderate intensity exercise. H. pylori infection 08/10/2018 Chronic abdominal pain 01/11/2018 Overview (02/07/2024): Added automatically from request for surgery [id number] Assessment & Plan (08/28/2024 10:06 AM EDT): Diffuse abdominal pain associated with rectal wetness, reports also intolerance to pork meat. At this moment, refer to GI. He has had endoscopies & colonoscopies done in [facility]. Pure hypercholesterolemia 10/08/2015 Encounters Date Type Department Care Team Description 11/17/2024 Refill [facility] [address] [place] [address] Claudia Wilcox MD 10/30/2024 Orders Only GENERIC EXTERNAL DATA DEPARTMENT Provider, Generic External Data 09/17/2024 3:30 PM EDT Office Visit [facility] [address] [place] [address] Claudia Wilcox MD Anal pruritus (Primary Dx); Prediabetes; Numbness and tingling of both feet 09/17/2024 Travel 09/14/2024 Telephone [facility] [address] [place] [address] Claudia Wilcox MD Chart Prep from Last [...] Free T4 2.80 0.32 - 4.0 uIU/mL [facility] 10/30/2024 4:27 PM EDT 10/30/2024 4:28 PM EDT us Generic External Data Provider LAB BLOOD ORDERAB LES Final Result [facility] [address] [place] [phone] * (ABNORMAL) CBC auto differential (10/30/2024 4:27 PM EDT) White Blood Count 7.9 4.8 - 10.8 X10*3/uL [facility] Red Blood Count 4.59(L) 4.60 - 5.80 X10*6/uL [facility] Hemoglobin 14.3 14.0 - 18.0 g/dl [facility] Hematocrit 40.1(L) 42.0 - 52.0 % [facility] Mean Corpuscular Volume 87.4 80.0 - 98.0 fL [facility] Mean Corpuscular Hemoglobin 31.2 27.0 - 33.0 pg [facility] Mean Corpuscular HGB Conc 35.7 31.0 - 36.0 g/dl [facility] Red Cell Distribution Width 12.8 11.0 - 16.0 % [facility] Platelet Count 192 160 - 400 X10*3/uL [facility] Mean Platelet Volume 9.8 9.4 - 12.4 fL [facility] Neutrophils Percent Auto 63.3 45 - 73 % [facility] Imm Gran Pct Auto 0.4 0.0 - 0.4 % [facility] Lymphocytes Percent Auto 29.0 20 - 40 % [facility] Monocytes Percent Auto 5.9 2 - 11 % [facility] Eosinophils Percent Auto 0.8 0 - 4 % [facility] Basophils Percent Auto 0.6 0 - 2 % [facility] NRBC Pct Auto 0.0 0.0 - 0.2 /100WBC [facility] Neutrophils Absolute Auto 5.0 2.0 - 8.3 x10*3/uL [facility] Imm Gran Abs Auto 0.03 0.00 - 0.03 X10*3/uL [facility] Lymphocytes Absolute Auto 2.3 1.2 - 4.9 X10*3/uL [facility] Monocytes Absolute Auto 0.5 0.1 - 1.2 X10*3/uL [facility] Eosinophils Absolute Auto 0.1 0.0 - 0.4 X10*3/uL [facility] Basophils Absolute Auto 0.1 0.0 - 0.2 X10*3/uL [facility] NRBC Abs Auto 0.000 0.0 - 0.012 X10*3/uL [facility] 10/30/2024 4:27 PM EDT 10/30/2024 4:28 PM EDT us Generic External Data Provider LAB BLOOD ORDERAB LES Final Result [facility] [address] [place] [phone] [phone] * Lipase (10/30/2024 4:27 PM EDT) Pathologist [facility] Lipase 16 8 - 78 U/L [facility] 10/30/2024 4:27 PM EDT 10/30/2024 4:28 PM EDT Generic External Data Provider LAB BLOOD ORDERAB LES Final Result Performing Organization Address City/[facility]/ZIP Co de Phone Number [facility] [address] [place] [phone] * Amylase (10/30/2024 4:27 PM EDT) Pathologist [facility] Amylase 54 28 - 100 U/L [facility] 10/30/2024 4:27 PM EDT 10/30/2024 4:28 PM EDT Generic External Data Provider LAB BLOOD ORDERAB LES Final Result Performing Organization Address City/[facility]/ZIP Co de Phone Number [facility] [address] [place] [phone] * (ABNORMAL) Comprehensive Metabolic Panel (10/30/2024 4:27 PM EDT) [facility] Sodium 140 135 - 145 mmol/L [facility] Potassium 3.8 3.3 - 5.1 mmol/L [facility] Chloride 101 96 - 108 mmol/L [facility] Carbon Dioxide 30(H) 22 - 29 mmol/L [facility] Anion Gap 13 12 - 20 [facility] Urea Nitrogen (BUN) 15 9 - 16 mg/dL [facility] Creatinine, Serum 0.75 0.5 - 1.4 mg/dL [facility] Estimated Glomerular Filt Rate >60 [facility] Comment:Chronic Kidney Disea se: Estimated GFR < 60 mL/min/1.76m3Fzxlsj Kidney Disease: Estimated GFR < 15 mL/min/1.73m2 Glucose 97 60 - 115 mg/dL [facility] Calcium 9.5 8.4 - 10.2 mg/dL [facility] Bilirubin, Total 0.5 0.0 - 1.0 mg/dL [facility] Aspartate Amino Transferase 30 5 - 37 U/L [facility] Alanine Aminotransferase 54(H) 0 - 40 U/L [facility] Total Protein 8.0 6.5 - 8.0 g/dL [facility] Albumin Level 4.8 3.5 - 5.0 g/dL [facility] Alkaline Phosphatase 96 39 - 117 U/L [facility] 10/30/2024 4:27 PM EDT 10/30/2024 4:28 PM EDT Generic External Data Provider LAB BLOOD ORDERAB LES Final Result [facility] [address] [place] [phone] * POCT glucose manually resulted (09/17/2024 3:01 PM EDT) Glucose Blood, POC 105 60 - 200 mg/dL QC Media Lot # Comment:[id number] Lot# Expiration Date Comment:12/16/2024 Blood Capillary blood [...] PM EST) Hepatitis C Antibody Nonreactive Nonreactive [facility] Comment:Antibodies to HCV no t detected; does not exclude early acuteHCV infection. Blood Venous blood specimen / Unknown 02/09/2024 1:14 PM EST 02/09/2024 2:50 PM EST Claudia Wilcox MD LAB BLOOD ORDERABLES Final Re sult Performing Organization Address [facility]/ZIP Co de Phone Number [facility] [address] [place] [phone] * HIV-1/2 Antigen and Antibodies, Fourth Generation, with Reflexes (02/09/2024 1:14 PM EST) HIV AB/AG Nonreactive Nonreactive [facility] Comment:HIV-1 p24 Ag and/or HIV-1/HIV-2 Ab not detected.A test result that is nonreactive does not exclude thepossibility of exposure to or infection with HIV-1 and/orHIV-2. Nonreactive results in this assay for individualswith prior exposure to HIV-1 and/or HIV-2 may be due toantigen and antibody levels that are below the limit ofdetection of this assay.The GenerationOneniCortexa HIV Ag/Ab Combo assay result andsupplemental assay results should be interpreted inconjunction with the patient's clinical presentation,history and other laboratory results. If the results areinconsistent with clinical evidence, additional testing issuggested to confirm the result. Blood Venous blood specimen / Unknown 02/09/2024 1:14 PM EST 02/09/2024 2:50 PM EST us Claudia Wilcox MD LAB BLOOD ORDERABLES Final Re sult Performing Organization Address [facility]/ZIP Co de Phone Number [facility] [address] [place] [phone] * (ABNORMAL) Lipid Panel, Standard (02/09/2024 1:14 PM EST) Triglycerides 120 <150 mg/dL [facility] Comment:Desirable Triglyceri de: less than 150 mg/dLBorderline High Triglyceride 150-199 mg/dLHigh Triglyceride: 200-499 mg/dLVery High Triglyceride: greater than or equal to 5OO mg/dL Cholesterol 219(H) <200 mg/dL [facility] Comment:Desirable Cholestero l: less than 200 mg/dLBorderline High Cholesterol: 200-239 mg/dLHigh Cholesterol: greater than 239 mg/dL LDL Cholesterol Calculated 149(H) <100 mg/dL [facility] Comment:Desirable LDL: less than 100 mg/dLNear Optimal/Above Optimal LDL: 110- 129 mg/dLBorderline High LDL: 130-159 mg/dLHigh LDL: 160-189 mg/dLVery High LDL: greater than or equal to 190 mg/dL HDL Cholesterol 46 >40 mg/dL [facility] Comment:Desirable HDL: great er than 40 mg/dL Note: This HDL assay may give artificially low results in patients with liver disease. Blood Venous blood specimen / Unknown 02/09/2024 1:14 PM EST 02/09/2024 2:50 PM EST Claudia Wilcox MD LAB BLOOD ORDERABLES Final Re sult [facility] [address] [place] [address] [phone] * Hm Colonoscopy (12/14/2023 11:50 AM EDT) Historical Provider HEALTH MAINTENANCE Final Result * Cologuard?? colon cancer screening (07/07/2023 9:08 PM EDT) Cologuard Result Negative Negative 07/14/19 24 8:34 PM EDT [facility] (CLIA #:[id number]) Comment: NEGATIVE TEST RESULT. A negative Cologuard [...] Alston et al, N Engl J Med 2014;370(14):4233-7843) The normal value (reference range) for this assay is negative. COLOGUARD RE-SCREENING RECOMMENDATION: Periodic colorectal cancer screening is an important part of preventive healthcare for asymptomatic individuals at average risk for colorectal cancer. Following a negative Cologuard result, the [place] Cancer Society and U.S. Multi-Society Task Force screening guidelines recommend a Cologuard re-screening interval of 3 years. References: [place] [employer] Guideline for Colorectal Cancer Screening: https://www.cancer.org/cancer/louzm-jexgqr-oekjub/suzupvuev-plinaxuwu-gljbbzx/ac s-rec ommendations.html.; Lev DK, Jacob CR, Wanda RaoK, Colorectal Cancer Screening: Recommendations for Physicians and Patients from the U.S. Multi-Society Task Force on Colorectal Cancer Screening , Am J Gastroenterology 2017; 112:8808-9683. TEST DESCRIPTION: Composite algorithmic analysis of stool [...] (Meche Pagan al, N Engl J Med 2014;370(14):1200-7414.) Cologuard may produce a false negative or false positive result (no colorectal cancer or precancerous polyp present at colonoscopy follow up). A negative Cologuard test result does not guarantee the absence of CRC or advanced adenoma (pre-cancer). The current Cologuard screening interval is every 3 years. ([place] [employer] Society and U.S. Multi-Society Task Force). Cologuard performance data in a 10,000 patient pivotal study using colonoscopy as the reference method can be accessed at the following location: www.[employer]/results. Additional description of the Cologuard test process, warnings and precautions can be found at www.AppSpotrrd.com. Stool specimen (specimen) 07/07/2023 9:08 PM EDT 07/09/2023 11:39 AM EDT Claudia Wilcox MD LAB MOLECULAR DIAGNOSTICS ORD ERABLES Final Result [facility] (CLIA #:[id number]) [address] [place] [address], from Last 3 Months or Most Recently Relevant to Health Maintenance Insurance [facility] D[facility] - HSN FULL (MEDICAID) Care Teams Concrete Paving Machine Operator Relationship Specialty Start Date End Date Claudia Wilcox MD [address] [place] [phone] PCP - General Family Medicine 11/29/23
--- OUTSIDE RECORDS SUMMARY | 2024-12-04 11:14 | XMS_ITS | Encounter Summary ---
Author Organization [facility] Address [address] [place] [address] Care Team Providers Care Press Reader Name Role Phone Siena Dumas Primary Care Provider [phone] Encounter Details Date Type Department Care Team (Latest Contact Info) Description 08/08/2023 Transcribe Orders [facility] Physician Referral Services [address] [place] [address] Siena Dumas [address] [place] [address] Hemorrhoids, unspecified hemorrhoid type (Primary Dx) Social [...] Primary documented in this encounter Care Teams Press Reader Relationship Specialty Start Date End Date Siena Dumas [address] [place] [address] PCP - General Family Medicine 10/21/17 documented as of this encounter
--- OUTSIDE RECORDS SUMMARY | 2024-12-04 11:15 | XMS_ITS | Clinical Summary ---
Author Organization [facility] Address [address] [place] [address] Care Team Providers Care M48 M60 Armor Crewman Name Role Phone Siena Dumas Primary Care Provider [phone] Allergies No known active allergies Medications omeprazole (PriLOSEC) 20 mg capsule Take 20 mg by mouth daily. 5 8 Active simvastatin (ZOCOR) 10 mg tablet Take 10 mg by mouth every evening. 3 8 Active bismuth subsalicylate (PEPTO BISMOL) 262 mg/15 mL suspension Take 15 mL by mouth as needed for diarrhea (only when needed - not regularly). Active ARTIFICIAL TEARS,QN-OANG-ITCX , 1-0.2-0.2 % drops 0 Active ibuprofen (MOTRIN) 800 mg tablet Take 800 mg by mouth 3 times a day. 0 Active aspirin chewable tablet 81 mg Chew and swallow 81 mg by mouth once a day. Active Active Problems Problem Noted Date Diagnosed Date H. pylori infection 08/10/2018 Chronic abdominal pain 01/11/2018 Overview (01/11/2018): Added automatically from request for surgery [id number] Social History Tobacco Use Types Packs/Day Years [...] of 3 - 19+ 3-dose series) 1993 Alcohol/Substance Use Screening 04/04/2024 Depression Screening and Follow-Up 04/04/2024 Social Drivers of Health Juliet ual Screening 04/04/2024 Pneumococcal Vaccine: 50+ Ye ars (1 of 1 - PCV) 2024 Zoster Vaccines (1 of 2) 2024 COVID-19 Vaccine (4 - 2024-2 6 season) 2024 03/18/2021, 07/14/2020, 06/16/2020 Influenza Vaccine (#1) 2024 , 02/05/2022, 01/05/2021, Additional history exists Cologuard 07/06/2026 07/07/2023 DTaP,Tdap,and Td Vaccines (3 - Td or Tdap) 01/18/2027 01/18/2017, 10/08/2015 Colon Cancer Screening 12/13/2033 Colonoscopy 12/13/2033 12/14/2023, 12/03, 12/14/2023 RSV Vaccine (60+ years old a nd patients) (1 - 1-dose 75+ series) 2049 HIV Screening Completed 12/10/2020, 12/10/2020 Procedures * Due to [place] state law, this organization might not be sharing negative HIV tests. Procedure Name Priority Date/Time Associated Diagnosis Comments COLONOSCOPY 12/14/2023 from Last 3 Months or Most Recently Relevant to Health Maintenance Results * Due to [place] state law, this organization might not be sharing negative HIV tests. * COLONOSCOPY (12/14/2023) Narrative Procedure Note Ana Zapata, - 12/14/2023 8:35 AM EDT [facility] Gastroenterology Patient Name: Irvin Loomis [...] by the physician, the nurse and the cephalometric technician in the endoscopy suite. Mental Status [...] and oxygen saturations were monitored continuously. [id number] was introduced through the anus andadvanced to [...] specimen was done by the nurse and cephalometric technician. Estimated blood loss was minimal. The [...] Most Recently Relevant to Health Maintenance Insurance [facility] HSNO/FREE CARE Advance Directives * Full Code (Latest Code Status on File) Date Activated Date Inactivated Comments 12/14/2023 8:50 AM 12/14/2023 12:40 PM Care Teams M48 M60 Armor Crewman Relationship Specialty Start Date End Date Siena Dumas [address] [place] [phone] PCP - General Family Medicine 10/21/17
--- OUTSIDE RECORDS SUMMARY | 2024-12-04 11:15 | XMS_ITS | Clinical Summary ---
Author Organization [facility] Address [address] [place] [address] Care Team Providers Care Glass Tube Bender Name Role Phone Len Gutierrez MD Primary Care Provider [phone] Source Comments PLEASE NOTE, if this patient [...] file Insurance [employer] NET Care Teams Glass Tube Bender Relationship Specialty Start Date End Date Len Gutierrez MD [address] [place] [address] PCP - General Internal Medicine 09/24/15
--- OUTSIDE RECORDS SUMMARY | 2024-12-04 11:15 | XMS_ITS | Encounter Summary ---
Author Organization [employer] [facility] Address [address] [facility] 7t [place] [address] Care Team Providers Care Field Artillery Officer Name Role Phone Siena Dumas MD Primary Care Provider [phone] Claudia Wilcox MD Primary Care Provider [phone] Encounter Details Date Type Department Care Team (Latest Contact Info) Description 03/06/2020 Abstract [facility] CON[facility]S Dental, Provider, DDS Social [...] on filedocumented in this encounter Care Teams Field Artillery Officer Relationship Specialty Start Date End Date Siena Dumas MD [address] [place] [address] PCP - General Family Medicine 12/18/12 11/28/23 Claudia Wilcox MD [address] [place] [address] PCP - General Family Medicine 11/29/23 documented as of this encounter
--- OUTSIDE RECORDS SUMMARY | 2024-12-04 11:15 | XMS_ITS | Encounter Summary ---
Author Organization [facility] Address [address] [place] [address] Care Team Providers Care Tamale Machine Feeder Name Role Phone Siena Dumas Primary Care Provider [phone] Encounter Details Date Type Department Care Team (Late st Contact Info) Description 11/17/2023 Orders Only [facility] Interventional Radiology [address] [place] [address] Иван Lepe MD [address] [place], [place] [phone] Social History Tobacco Use Types Packs/Day Years [...] on filedocumented in this encounter Care Teams Tamale Machine Feeder Relationship Specialty Start Date End Date Siena Dumas [address] [place] [address] PCP - General Family Medicine 10/21/17 documented as of this encounter
--- OUTSIDE RECORDS SUMMARY | 2024-12-04 11:15 | XMS_ITS | Encounter Summary ---
Author Organization [employer] Address [address] [facility] [address] [place] [address] Care Team Providers Care City Supervisor Name Role Phone Claudia Wilcox MD Primary Care Provider [phone] Reason for Visit * Reason Onset Date Comments Appointment Request 12/27/2023 Encounter Details Date Type Department Care Team ([facility] st Contact Info) Description 12/27/2023 Telephone [facility] [address] [place] [address] Claudia Wilcox MD [address] [place], [place] [phone] Appointment Request Social History Tobacco Use Types [...] t he electric, gas, oil or water [employer] threatened to shut off services in your [...] documented as of this encounter Care Teams City Supervisor Relationship Specialty Start Date End Date Claudia Wilcox MD [address] [place] [address] PCP - General Family Medicine 11/29/23 documented as of this encounter
--- OUTSIDE RECORDS SUMMARY | 2024-12-04 11:15 | XMS_ITS | Encounter Summary ---
Author Organization [facility] Address [address] [facility] [address] [place] [address] Care Team Providers Care Patternmaker Helper Name Role Phone Siena Dumas MD Primary Care Provider [phone] Claudia Wilcox MD Primary Care Provider Encounter Details Date Type Department Care Team (Latest Contact Info) Description 03/07/2019 Abstract [facility] CONVERSIONS Dental, Provider, DDS Social History Tobacco [...] on filedocumented in this encounter Care Teams Patternmaker Helper Relationship Specialty Start Date End Date Siena Dumas MD [address] [place] [address] PCP - General Family Medicine 12/18/12 11/28/23 Claudia Wilcox MD [address] [place] [address] PCP - General Family Medicine 11/29/23 documented as of this encounter
== END 2024-11-30 10:01 | disposition home or self-care (01) ==
LOC: HO.LNP 10:00
PROVIDERS: Visit Provider Nurse Practitioner
DX: K62.89 Other specified diseases of anus and rectum (principal)
CPT/HCPCS: 87070; 87205

== ENCOUNTER 2024-11-30 14:56 | Outpatient (AMB) | payer OTHER, SELFPAY ==
--- OUTSIDE RECORDS SUMMARY | 2024-11-30 14:58 | XMS_ITS | Clinical Summary ---
Author Organization [facility] Address [address] [place] [address] Care Team Providers Care Traffic Administrator Name Role Phone Len Gutierrez MD Primary Care Provider [phone] Source Comments PLEASE NOTE, if this patient [...] file Insurance [employer] Care Teams Traffic Administrator Relationship Specialty Start Date End Date Len Gutierrez MD [address] [place] [address] PCP - General Internal Medicine 09/24/15
--- OUTSIDE RECORDS SUMMARY | 2024-11-30 14:58 | XMS_ITS | Encounter Summary ---
Author Organization [facility] Address [address] [place] [address] Care Team Providers Care Surgical Oncologist Name Role Phone Siena Dumas Primary Care Provider [phone] Encounter Details Date Type Department Care Team (Late st Contact Info) Description 11/17/2023 Orders Only [facility] Interventional Radiology [address] [place] [address] Иван Lepe MD [address] [place], [place] [phone] Social History Tobacco Use Types Packs/Day Years [...] on filedocumented in this encounter Care Teams Surgical Oncologist Relationship Specialty Start Date End Date Siena Dumas [address] [place] [address] PCP - General Family Medicine 10/21/17 documented as of this encounter
--- OUTSIDE RECORDS SUMMARY | 2024-11-30 14:58 | XMS_ITS | Encounter Summary ---
Author Organization [employer] Address [address] [facility] 7t [place] [address] Care Team Providers Care Mobile Pet Groomer Name Role Phone Claudia Wilcox MD Primary Care Provider [phone] Encounter Details Date Type Department Care Team (Late st Contact Info) Description 12/14/2023 Orders Only [facility] [address] [place] [address] Provider, MD Emily Social History Tobacco Use [...] on file documented as of this encounter Procedures Procedure Name Priority Date/Time Associated Diagnosis Comments HM COLONOSCOPY Routine 12/14/2023 11:50 AM EDT documented in this encounter Results * Hm Colonoscopy (12/14/2023 11:50 AM EDT) us Historical Provider HEALTH MAINTENANCE Final Result documented in this encounter Visit Diagnoses Not on filedocumented in this encounter Additional Health Concerns Assessment Noted Time PHQ-9 Depression Total Score: 0 06/23/19 23 10:10 AM EDT documented as of this encounter Care Teams Mobile Pet Groomer Relationship Specialty Start Date End Date Claudia Wilcox MD [address] [place] [address] PCP - General Family Medicine 11/29/23 documented as of this encounter
--- OUTSIDE RECORDS SUMMARY | 2024-11-30 14:58 | XMS_ITS | Encounter Summary ---
Author Organization [employer] Address [address] [facility] 7t [place] [address] Care Team Providers Care Financial Counselor Name Role Phone Siena Dumas MD Primary Care Provider [phone] Claudia Wilcox MD Primary Care Provider [phone] Reason for Visit * Reason Onset Date Comments FYI 11/24/2023 Encounter Details Date Type Department Care Team ([facility] st Contact Info) Description 11/24/2023 Telephone [facility] [address] [place] [address] Siena Dumas MD [address] [place], [place] [id number] FYI Social History Tobacco Use Types Packs/Day [...] 11/24/2023 8:37 AM EDT Donald Lynch at [facility] colon and rectal surgery calling to report after reviewing the notes had seen some incidental findings that should be communicated between the provider and patient Cris will be faxing over the documents documented in this encounter Plan of Treatment Not on file documented as of this encounter Visit Diagnoses Not on filedocumented in this encounter Additional Health Concerns Assessment Noted Time PHQ-9 Depression Total Score: 0 06/23/19 23 10:10 AM EDT documented as of this encounter Care Teams Financial Counselor Relationship Specialty Start Date End Date Siena Dumas MD [address] [place] [address] PCP - General Family Medicine 12/18/12 11/28/23 Claudia Wilcox MD [address] [place] [address] PCP - General Family Medicine 11/29/23 documented as of this encounter
--- OUTSIDE RECORDS SUMMARY | 2024-11-30 14:58 | XMS_ITS | Encounter Summary ---
Author Organization [employer] Address [address] [facility] [address] [place] [address] Care Team Providers Care Director Electrical Engineering Name Role Phone Siena Dumas MD Primary Care Provider [phone] Claudia Wilcox MD Primary Care Provider [phone] Encounter Details Date Type Department Care Team (Late st Contact Info) Description 11/24/2023 Orders Only [facility] [address] [place] [address] Provider, MD Emily Social History Tobacco Use [...] documented as of this encounter Care Teams Director Electrical Engineering Relationship Specialty Start Date End Date Siena Dumas MD [address] [place] [address] PCP - General Family Medicine 12/18/12 11/28/23 Claudia Wilcox MD [address] [place] [address] PCP - General Family Medicine 11/29/23 documented as of this encounter
--- OUTSIDE RECORDS SUMMARY | 2024-11-30 14:58 | XMS_ITS | Encounter Summary ---
Author Organization [employer] [facility] Address [address] [facility] 7t [place] [address] Care Team Providers Care Flower Cheniller Name Role Phone Siena Dumas MD Primary Care Provider [phone] Claudia Wilcox MD Primary Care Provider [phone] Encounter Details Date Type Department Care Team (Latest Contact Info) Description 03/07/2019 Abstract [facility] CONVERSIONS Dental, Provider, DDS Social History [...] on filedocumented in this encounter Care Teams Flower Cheniller Relationship Specialty Start Date End Date Siena Dumas MD [address] [place] [address] PCP - General Family Medicine 12/18/12 11/28/23 Claudia Wilcox MD [address] [place] [address] PCP - General Family Medicine 11/29/23 documented as of this encounter
--- OUTSIDE RECORDS SUMMARY | 2024-11-30 14:58 | XMS_ITS | Encounter Summary ---
Author Organization [employer] Address [address] [facility] 7t [place] [address] Care Team Providers Care Net Programmer Analyst Name Role Phone Claudia Wilcox MD Primary Care Provider [phone] Reason for Visit * Reason Onset Date Comments Appointment Request 12/27/2023 Encounter Details Date Type Department Care Team ([facility] st Contact Info) Description 12/27/2023 Telephone [facility] [address] [place] [address] Claudia Wilcox MD [address] [place], [place] [phone] Appointment Request Social History Tobacco Use Types [...] t he electric, gas, oil or water [employer] threatened to shut off services in your [...] encounter Miscellaneous Notes * Telephone Encounter - Manuela Allen - 12/27/2023 3:50 PM EDT Tc [...] documented as of this encounter Care Teams Net Programmer Analyst Relationship Specialty Start Date End Date Claudia Wilcox MD [address] [place] [id number] PCP - General Family Medicine 11/29/23 documented as of this encounter
--- OUTSIDE RECORDS SUMMARY | 2024-11-30 14:58 | XMS_ITS | Clinical Summary ---
Author Organization [facility] Address [address] [place] [address] Care Team Providers Care Tape Recording Machine Operator Name Role Phone Siena Dumas Primary Care Provider [phone] Allergies No known active allergies Medications omeprazole (PriLOSEC) 20 mg capsule Take 20 mg by mouth daily. 5 8 Active simvastatin (ZOCOR) 10 mg tablet Take 10 mg by mouth every evening. 3 8 Active bismuth subsalicylate (PEPTO BISMOL) 262 mg/15 mL suspension Take 15 mL by mouth as needed for diarrhea (only when needed - not regularly). Active ARTIFICIAL TEARS,KG-EORO-VWQQ , 1-0.2-0.2 % drops 0 Active ibuprofen (MOTRIN) 800 mg tablet Take 800 mg by mouth 3 times a day. 0 Active aspirin chewable tablet 81 mg Chew and swallow 81 mg by mouth once a day. Active Active Problems Problem Noted Date Diagnosed Date H. pylori infection 08/10/2018 Chronic abdominal pain 01/11/2018 Overview (01/11/2018): Added automatically from request for surgery [id number] Social History Tobacco Use Types Packs/Day Years [...] 60 12/14/2023 10:00 AM EDT Temperature 36.4 C (97.5 F) 12/14/2023 9:44 AM EDT Respiratory Rate 20 12/14/2023 10:00 AM EDT [...] - 19+ 3-dose series) 1993 COVID-19 Vaccine ( - 2023-2 5 season) 2023 03/18/2021, 07/14/2020, 06/16/2020 Alcohol/Substance Use Screening 04/04/2024 Depression Screening and Follow-Up 04/04/2024 Social Drivers of Health [place] ual Screening 04/04/2024 Pneumococcal Vaccine: 50+ Ye ars (1 of 1 - PCV) 2024 Zoster Vaccines (1 of 2) 2024 Influenza Vaccine (#1) 2024 , 02/05/2022, 01/05/2021, Additional history exists Cologuard 07/06/2026 07/07/2023 DTaP,Tdap,and Td Vaccines (3 - Td or Tdap) 01/18/2027 01/18/2017, 10/08/2015 Colon Cancer Screening 12/13/2033 Colonoscopy 12/13/2033 12/14/2023, 12/03, 12/14/2023 RSV Vaccine (60+ years old a nd patients) (1 - 1-dose 75+ series) 2049 HIV Screening Completed 12/10/2020, 12/10/2020 Procedures * Due to [place] state law, this organization might not be sharing negative HIV tests. Procedure Name Priority Date/Time Associated Diagnosis Comments COLONOSCOPY 12/14/2023 from Last 3 Months or Most Recently Relevant to Health Maintenance Results * Due to [place] state law, this organization might not be sharing negative HIV tests. * COLONOSCOPY (12/14/2023) Narrative Procedure Note Ana Zapata, - 12/14/2023 8:35 AM EDT [facility] Gastroenterology Patient Name: Irvin Loomis [...] by the physician, the nurse and the automotive repair technician in the endoscopy suite. Mental Status [...] pulse, and oxygen saturations were monitored continuously. [id number] was introduced through the anus andadvanced to [...] specimen was done by the nurse and automotive repair technician. Estimated blood loss was minimal. The [...] Most Recently Relevant to Health Maintenance Insurance [facility] HSNO/FREE CARE Advance Directives * Full Code (Latest Code Status on File) Date Activated Date Inactivated Comments 12/14/2023 8:50 AM 12/14/2023 12:40 PM Care Teams Tape Recording Machine Operator Relationship Specialty Start Date End Date Siena Dumas [address] [place] [id number] PCP - General Family Medicine 10/21/17
--- OUTSIDE RECORDS SUMMARY | 2024-11-30 14:58 | XMS_ITS | Encounter Summary ---
Author Organization [facility] Address [address] [place] [address] Care Team Providers Care Supervisor Chassis Assembly Name Role Phone Siena Dumas Primary Care Provider [phone] Encounter Details Date Type Department Care Team (Latest Contact Info) Description 08/08/2023 Transcribe Orders [facility] [address] [place] [address] Siena Dumas [address] [place] [address] Hemorrhoids, unspecified hemorrhoid type (Primary Dx) Social [...] Primary documented in this encounter Care Teams Supervisor Chassis Assembly Relationship Specialty Start Date End Date Siena Dumas [address] [place] [address] PCP - General Family Medicine 10/21/17 documented as of this encounter
--- OUTSIDE RECORDS SUMMARY | 2024-11-30 14:58 | XMS_ITS | Encounter Summary ---
Author Organization [employer] [facility] Address [address] [facility] 7t [place] [address] Care Team Providers Care Transitional Studies Instructor Name Role Phone Siena Dumas MD Primary Care Provider [phone] Claudia Wilcox MD Primary Care Provider [phone] Encounter Details Date Type Department Care Team (Latest Contact Info) Description 03/06/2020 Abstract [facility] CONVERSIONS Dental, Provider, DDS Social History [...] on filedocumented in this encounter Care Teams Transitional Studies Instructor Relationship Specialty Start Date End Date Siena Dumas MD [address] [place] [address] PCP - General Family Medicine 12/18/12 11/28/23 Clauida Wilcox MD [address] [place] [address] PCP - General Family Medicine 11/29/23 documented as of this encounter
--- OUTSIDE RECORDS SUMMARY | 2024-11-30 14:58 | XMS_ITS | Clinical Summary ---
Author Organization [employer] Address [address] [place] [address] Care Team Providers Care Rf Design Engineer Name Role Phone Claudia Wilcox MD Primary Care Provider [phone] Allergies No known active allergies Medications acetaminophen (Tylenol) 325 MG tablet Take 1 tablet by mouth every 4 (four) hours. 01/23/20 20 Active dextran 70-hypromellose (dextran-70 & hydroxypropyl methylcellulose) 0.1-0.3 % ophthalmic solution insert 1 drop in the right eye 6 times daily as needed Active meclizine (Antivert) 25 MG tablet Take 1 tablet by mouth at bed time. 01/16/20 20 Active ondansetron ODT (Zofran-ODT) 4 MG disintegrating tablet DISSOLVE ONE TABLET ON TONGUE EVERY 8 HOURS NEEDED FOR NAUSEA AND VOMITING 20 tablet 09/27/19 24 Active hydroCHLOROthiazi de (HYDRODiuril) 25 MG tablet TAKE ONE TABLET EVERY MORNING 90 tablet 3 12/21/19 24 Active bismuth subsalicylate (Pepto-Bismol) 262 MG/15ML suspension Take 15 mL by mouth if needed. Active Glycerin-Hypromel lose-PEG 400 0.2-0.2-1 % solution 05/26/19 20 Active sucralfate (Carafate) 1 g tablet TAKE 1 TABLET 3 TIMES A DAY NEEDED FOR ABDOMINAL PAIN 04/16/19 24 Active polyethylene glycol, PEG, 3350 (MiraLax) 17 GM/SCOOP powderIndications :Constipation, unspecified constipation type Take 17 g by mouth Once per day. 527 g 2 02/09/20 24 Active senna-docusate sodium (Senokot-S) 8.6-50 MG tabletIndications :Constipation, unspecified constipation type Take 2 tablets by mouth if needed at bedtime for constipation . 60 tablet 2 02/09/20 24 Active ibuprofen 800 MG tabletIndications :Pain TAKE ONE TABLET THREE TIMES DAILY 90 tablet 3 06/20/19 25 Active omeprazole (PriLOSEC) [address] capsuleIndication s:GERD without esophagitis TAKE ONE CAPSULE EVERY DAY 90 capsule 1 08/16/19 25 Active simvastatin (Zocor) 10 MG tabletIndications :Hypercholesterol emia TAKE ONE TABLET AT BEDTIME 90 tablet 1 08/16/19 25 Active aspirin (Aspirin Adult Low Strength) 81 MG EC tabletIndications :Primary hypertension TAKE ONE TABLET BY MOUTH EVERY MORNING 90 tablet 1 08/16/19 25 Active hydrocortisone (Anusol-HC) 2.5 % rectal creamIndications: Anal pruritus Insert into the rectum 2 times daily. 60 g 09/18/19 25 Active metFORMIN (Glucophage) 500 MG tablet TAKE ONE TABLET AT BEDTIME 90 tablet 1 11/21/19 25 Active metFORMIN (Glucophage) 500 MG tablet Take 1 tablet (500 mg) by mouth at bedtime. 30 tablet 2 08/25/19 25 025 Discontinued Active Problems Problem Noted Date Diagnosed Date [...] the area. Plan: - Consider referral to crabbing machine operator for further evaluation and possible treatment Gastritis [...] obtain test results from previous visits to [facility] and [facility]. Anal pruritus 07/04/2023 Assessment & Plan (09/18/2024 8:20 AM EDT): Patient reports rectal itching. Differential diagnoses include hemorrhoids, skin tags, or other anorectal conditions. Plan: - Prescribed Anusol cream for topical application to affected area Chronic has followup w/ GI History of Helicobacter pylori infection 023 Overview (02/08/2023): Previously followed by [facility] - Dr. Hidalgo (last available consult [...] avoid excessive sugar intake, particularly while in [place] Assessment & Plan (08/28/2024 10:04 AM EDT): [...] protein consumption - Recommend consultation with a glass cutting machine operator (patient previously advised but found it difficult to follow recommendations) Obesity 12/05/2020 Assessment & Plan (02/13/2024 8:05 PM EST): Discussed calorie deficit, recommended reduction of 20-30% of maintenance calories; glass cutting machine operator referral offered. Recommended to decrease soda and sugary beverage consumption. Recommended at least 20 g per meal of protein to assist with satiety. Recommended at least 150 min/week of moderate intensity exercise. H. pylori infection 08/10/2018 Chronic abdominal pain 01/11/2018 Overview (02/07/2024): Added automatically from request for surgery [id number] Assessment & Plan (08/28/2024 10:06 AM EDT): Diffuse abdominal pain associated with rectal wetness, reports also intolerance to pork meat. At this moment, refer to GI. He has had endoscopies & colonoscopies done in [facility]. Pure hypercholesterolemia 10/08/2015 Encounters Date Type Department Care Team Description 11/17/2024 Refill [facility] [place] [facility] [address] [place] [address] Claudia Wilcox MD 10/30/2024 Orders Only GENERIC EXTERNAL DATA DEPARTMENT Provider, Generic External Data 09/17/2024 3:30 PM EDT Office Visit [facility] [place] [address] [place] [address] Clauida Wilcox MD Anal pruritus (Primary Dx); Prediabetes; Numbness and tingling of both feet 09/17/2024 Travel 09/14/2024 Telephone [facility] [place] [address] [place] [phone] Claudia Wilcox MD Chart Prep from Last 3 Months Immunizations Immunization Administration [...] PCV 20 08/24/2024 Tdap 01/18/2017,10/08/2015 Zoster, Recombinant 11/02/2024,08/24/2024 Social History Tobacco Use Types Packs/Day Years [...] 09/17/2024 2:59 PM EDT Plan of Treatment Health Maintenance Due Date Last Done Comments CT Colonography 1974 FIT 1974 FOBT 1974 Sigmoidoscopy 1974 Disability Screening 1974 Family Planning (PISQ) 1989 Hepatitis B Vaccines (1 of 3 - 19+ 3-dose series) 1993 COVID-19 Vaccine ( season) 2023 03/18/2021, 07/14/2020, 06/16/2020 Influenza Vaccine (#1) 2024 , 02/07/2023, 02/05/2022, [...] Cancer Screening 12/13/2028 Lipid Panel 02/08/2029 02/09/2024, 03/04/2022, 12/10/2020, Additional history exists RSV Patients and Patients Aged 60 years or older (1 - 1-dose 75+ series) 2049 HIV Screening Completed 02/09/2024, 12/10/2020 Hepatitis C Screening Completed 02/09/2024 Pneumococcal Vaccine: 50+ Years Completed 08/24/2024 Zoster Vaccines Completed 11/02/2024, 08/24/2024 HIB Vaccines Aged Out No longer [...] Procedure Name Priority Date/Time Associated Diagnosis Comments TSH W/REFLEX TO FT4 Routine 10/30/2024 4 :27 PM EDT LIPASE Routine 10/30/2024 4:27 PM EDT AMYLASE Routine 10/30/2024 4:27 PM EDT COMPREHENSIVE METABOLIC PANEL Routine 10/30/2024 4:27 PM EDT CBC WITH AUTO DIFFERENTIAL Routine 10/30/2024 4:27 PM EDT POCT GLUCOSE Routine 09/17/2024 3:01 PM EDT Prediabetes POCT GLYCATED HEMOGLOBIN, TOTAL Routine 08/24/2024 10:25 AM EDT Prediabetes PROPHYLAXIS - ADULT Routine 07/31/2024 3 :00 PM EDT BITEWINGS - 4 RADIOGRAPHIC IMAGES Routine 07/31/2024 3:00 PM EDT PERIODIC ORAL EVALUATION - ESTABLISHED PATIENT Routine 07/31/2024 3:00 PM EDT HEPATITIS C AB W/REFL TO [...] Recently Relevant to Health Maintenance Results * TSH with Reflex to Free T4 (10/30/2024 4:27 PM EDT) TSH reflex Free T4 2.80 0.32 - 4.0 uIU/mL [facility] 10/30/2024 4:27 PM EDT 10/30/2024 4:28 PM EDT us Generic External Data Provider LAB BLOOD ORDERAB LES Final Result [facility] [address] [place] [phone] * (ABNORMAL) CBC auto differential (10/30/2024 4:27 PM EDT) White Blood Count 7.9 4.8 - 10.8 X10*3/uL [facility] Red Blood Count 4.59(L) 4.60 - 5.80 X10*6/uL [facility] Hemoglobin 14.3 14.0 - 18.0 g/dl [facility] Hematocrit 40.1(L) 42.0 - 52.0 % [facility] Mean Corpuscular Volume 87.4 80.0 - 98.0 fL [facility] Mean Corpuscular Hemoglobin 31.2 27.0 - 33.0 pg [facility] Mean Corpuscular HGB Conc 35.7 31.0 - 36.0 g/dl [facility] Red Cell Distribution Width 12.8 11.0 - 16.0 % [facility] Platelet Count 192 160 - 400 X10*3/uL [facility] Mean Platelet Volume 9.8 9.4 - 12.4 fL [facility] Neutrophils Percent Auto 63.3 45 - 73 % [facility] Imm Gran Pct Auto 0.4 0.0 - 0.4 % [facility] Lymphocytes Percent Auto 29.0 20 - 40 % [facility] Monocytes Percent Auto 5.9 2 - 11 % [facility] Eosinophils Percent Auto 0.8 0 - 4 % [facility] Basophils Percent Auto 0.6 0 - 2 % [facility] NRBC Pct Auto 0.0 0.0 - 0.2 /100WBC [facility] Neutrophils Absolute Auto 5.0 2.0 - 8.3 x10*3/uL [facility] Imm Gran Abs Auto 0.03 0.00 - 0.03 X10*3/uL [facility] Lymphocytes Absolute Auto 2.3 1.2 - 4.9 X10*3/uL [facility] Monocytes Absolute Auto 0.5 0.1 - 1.2 X10*3/uL [facility] Eosinophils Absolute Auto 0.1 0.0 - 0.4 X10*3/uL [facility] Basophils Absolute Auto 0.1 0.0 - 0.2 X10*3/uL [facility] NRBC Abs Auto 0.000 0.0 - 0.012 X10*3/uL [facility] 10/30/2024 4:27 PM EDT 10/30/2024 4:28 PM EDT us Generic External Data Provider LAB BLOOD ORDERAB LES Final Result [facility] [address] [place] [phone] * Lipase (10/30/2024 4:27 PM EDT) Pathologist [facility] Lipase 16 8 - 78 U/L [facility] 10/30/2024 4:27 PM EDT 10/30/2024 4:28 PM EDT Generic External Data Provider LAB BLOOD ORDERAB LES Final Result Performing Organization Address City/[facility]/ZIP Co de Phone Number [facility] [address] [place] [phone] * Amylase (10/30/2024 4:27 PM EDT) Pathologist [facility] Amylase 54 28 - 100 U/L [facility] 10/30/2024 4:27 PM EDT 10/30/2024 4:28 PM EDT Generic External Data Provider LAB BLOOD ORDERAB LES Final Result Performing Organization Address City/[facility]/ZIP Co de Phone Number [facility] [address] [place] [phone] * (ABNORMAL) Comprehensive Metabolic Panel (10/30/2024 4:27 PM EDT) [facility] Sodium 140 135 - 145 mmol/L [facility] Potassium 3.8 3.3 - 5.1 mmol/L [facility] Chloride 101 96 - 108 mmol/L [facility] Carbon Dioxide 30(H) 22 - 29 mmol/L [facility] Anion Gap 13 12 - 20 [facility] Urea Nitrogen (BUN) 15 9 - 16 mg/dL [facility] Creatinine, Serum 0.75 0.5 - 1.4 mg/dL [facility] Estimated Glomerular Filt Rate >60 [facility] Comment:Chronic Kidney Disea se: Estimated GFR < 60 mL/min/1.43d3Ojlcjg Kidney Disease: Estimated GFR < 15 mL/min/1.73m2 Glucose 97 60 - 115 mg/dL [facility] Calcium 9.5 8.4 - 10.2 mg/dL [facility] Bilirubin, Total 0.5 0.0 - 1.0 mg/dL [facility] Aspartate Amino Transferase 30 5 - 37 U/L [facility] Alanine Aminotransferase 54(H) 0 - 40 U/L [facility] Total Protein 8.0 6.5 - 8.0 g/dL [facility] Albumin Level 4.8 3.5 - 5.0 g/dL [facility] Alkaline Phosphatase 96 39 - 117 U/L [facility] 10/30/2024 4:27 PM EDT 10/30/2024 4:28 PM EDT Generic External Data Provider LAB BLOOD ORDERAB LES Final Result [facility] [address] [place] [phone] * POCT glucose manually resulted (09/17/2024 3:01 PM EDT) Glucose Blood, POC 105 60 - 200 mg/dL QC Media Lot # Comment:[id number] Lot# Expiration Date Comment:12/16/2024 Blood Capillary blood specimen / Unknown 09/17/2024 3:01 PM EDT Claudia Wilcox MD POINT OF CARE TEST ENTER/EDIT ORDERABLES Final Result * (ABNORMAL) POCT HGB A1C (08/24/2024 10:25 AM EDT) Hemoglobin A1C 6.3(A) 4.0 - 6.0 % QC Media Lot # [id number] Lot# Expiration Date 122, Blood 08/24/2024 10:2 5 AM EDT Claudia Wilcox MD POINT OF CARE TEST ENTER/EDIT ORDERABLES Final Result * Hepatitis C Antibody with Reflex to HCV, RNA, Quantitative, Real-Time PCR (02/09/2024 1:14 PM EST) Hepatitis C Antibody Nonreactive Nonreactive [facility] Comment:Antibodies to HCV no t detected; does not exclude early acuteHCV infection. Blood Venous blood specimen / Unknown 02/09/2024 1:14 PM EST 02/09/2024 2:50 PM EST Claudia Wilcox MD LAB BLOOD ORDERABLES Final Re sult Performing Organization Address [facility]/ZIP Co de Phone Number [facility] [address] [place] [phone] * HIV-1/2 Antigen and Antibodies, Fourth Generation, with Reflexes (02/09/2024 1:14 PM EST) HIV AB/AG Nonreactive Nonreactive [facility] Comment:HIV-1 p24 Ag and/or HIV-1/HIV-2 Ab not detected.A test result that is nonreactive does not exclude thepossibility of exposure to or infection with HIV-1 and/orHIV-2. Nonreactive results in this assay for individualswith prior exposure to HIV-1 and/or HIV-2 may be due toantigen and antibody levels that are below the limit ofdetection of this assay.The FlowPlayniNarrable HIV Ag/Ab Combo assay result andsupplemental assay results should be interpreted inconjunction with the patient's clinical presentation,history and other laboratory results. If the results areinconsistent with clinical evidence, additional testing issuggested to confirm the result. Blood Venous blood specimen / Unknown 02/09/2024 1:14 PM EST 02/09/2024 2:50 PM EST us Claudia Wilcox MD LAB BLOOD ORDERABLES Final Re sult Performing Organization Address [facility]/ZIP Co de Phone Number [facility] [address] [place] [phone] * (ABNORMAL) Lipid Panel, Standard (02/09/2024 1:14 PM EST) Triglycerides 120 <150 mg/dL [facility] Comment:Desirable Triglyceri de: less than 150 mg/dLBorderline High Triglyceride 150-199 mg/dLHigh Triglyceride: 200-499 mg/dLVery High Triglyceride: greater than or equal to 5OO mg/dL Cholesterol 219(H) <200 mg/dL [facility] Comment:Desirable Cholestero l: less than 200 mg/dLBorderline High Cholesterol: 200-239 mg/dLHigh Cholesterol: greater than 239 mg/dL LDL Cholesterol Calculated 149(H) <100 mg/dL [facility] Comment:Desirable LDL: less than 100 mg/dLNear Optimal/Above Optimal LDL: 110- 129 mg/dLBorderline High LDL: 130-159 mg/dLHigh LDL: 160-189 mg/dLVery High LDL: greater than or equal to 190 mg/dL HDL Cholesterol 46 >40 mg/dL [facility] Comment:Desirable HDL: great er than 40 mg/dL Note: This HDL assay may give artificially low results in patients with liver disease. Blood Venous blood specimen / Unknown 02/09/2024 1:14 PM EST 02/09/2024 2:50 PM EST Claudia Wilcox MD LAB BLOOD ORDERABLES Final Re sult [facility] [address] [place] [address] [phone] * Hm Colonoscopy (12/14/2023 11:50 AM EDT) Historical Provider HEALTH MAINTENANCE Final Result * Cologuard?? colon cancer screening (07/07/2023 9:08 PM EDT) Cologuard Result Negative Negative 07/14/19 24 8:34 PM EDT [facility] (CLIA #:[id number]) Comment: NEGATIVE TEST RESULT. A negative Cologuard [...] Alston et al, N Engl J Med 2014;370(14):7402-8276) The normal value (reference range) for this assay is negative. COLOGUARD RE-SCREENING RECOMMENDATION: Periodic colorectal cancer screening is an important part of preventive healthcare for asymptomatic individuals at average risk for colorectal cancer. Following a negative Cologuard result, the [employer] Cancer Society and U.S. Multi-Society Task Force screening guidelines recommend a Cologuard re-screening interval of 3 years. References: [employer] Society Guideline for Colorectal Cancer Screening: https://www.cancer.org/cancer/jccub-fnvsmm-cvtanp/pcszqaxoa-bwtdfmghr-xtmkvge/ac s-rec ommendations.html.; Lev DK, Jacob CR, Wanda RaoK, Colorectal Cancer Screening: Recommendations for Physicians and Patients from the U.S. Multi-Society Task Force on Colorectal Cancer Screening , Am J Gastroenterology 2017; 112:3583-0893. TEST DESCRIPTION: Composite algorithmic analysis of stool [...] (Meche Pagan al, N Engl J Med 2014;370(14):4230-3899.) Cologuard may produce a false negative or false positive result (no colorectal cancer or precancerous polyp present at colonoscopy follow up). A negative Cologuard test result does not guarantee the absence of CRC or advanced adenoma (pre-cancer). The current Cologuard screening interval is every 3 years. ([employer] Cancer Society and U.S. Multi-Society Task Force). Cologuard performance data in a 10,000 patient pivotal study using colonoscopy as the reference method can be accessed at the following location: www.[employer]obiq/results. Additional description of the Cologuard test process, warnings and precautions can be found at www.Walldressrd.com. Stool specimen (specimen) 07/07/2023 9:08 PM EDT 07/09/2023 11:39 AM EDT Claudia Wilcox MD LAB MOLECULAR DIAGNOSTICS ORD ERABLES Final Result [facility] (CLIA #:[id number]) [address] [place] [address], from Last 3 Months or Most Recently Relevant to Health Maintenance Insurance [facility] FULL (MEDICAID) Care Teams Rf Design Engineer Relationship Specialty Start Date End Date Claudia Wilcox MD [address] [place] [phone] PCP - General Family Medicine 11/29/23
--- NOTE | 2024-11-30 15:12 | MHC.OFFVIS ---
Vital Signs 11/30/24 15:43 Height 5 ft 4 in Weight 183 lb BMI 31.4 BP 126/72 Blood Pressure Location Lt brachial Position Sitting Intake Visit Reasons: Follow up lab results /constipation Welding Machine Operator Electron Beam Required: Yes Welding Machine Operator Electron Beam Language: Assistant Signal Maintainer Services: Welding Machine Operator Electron Beam Present (in person) Accompanied by: Self / Same As Patient Allergies No Known Allergies Allergy (Verified 12/21/24 15:42) HPI HPI Follow up lab results /constipation: Details: Assessment & Plan (1) Chronic idiopathic constipation: Code(s): K59.04 - Chronic idiopathic constipation Category: Medical (2) Abdominal bloating: Code(s): R14.0 - Abdominal distension (gaseous) Category: Medical (3) GERD (gastroesophageal reflux disease): Code(s): K21.9 - Gastro-esophageal reflux disease without esophagitis Category: Medical Plan Apparently the patient has been seen at [facility] in the past for this. He was seen there for about a year, but it because too far for him to travel. Onset 4 years of bloating after eating. He also has a lot of rectal burning and itching and there is liquid that comes out. It does not stain the underwear, but his rectum feels wet. HE suffers CIC. He may go for 2 days w/o a BM, and when he does move his bowels they are long and skinny. He has used Miralax and bisacodyl, but he was told to only take it prn and not daily. He had no success with senna, fiber, or colace. He denies any weight loss, he was told he needs to lose weight because he is diabetic. He also denies any nausea vomiting or trouble swallowing. He will have pain only occasionally in the bilateral lower quadrants that is intermittent. He only of heartburn if she forgets to take his omeprazole. He had a colonoscopy about 6 mos ago at [facility]. He was told only that he had polyps. The only other study he can remember is something where I had to drink a white liquid. HIs PCP told him he had roids. He has tried creams in the past w/o good results. He does not know of any FHX of similar sx - he had a brother who passed of ca but he dose not know what type. He does not know if there is a family history of gallbladder disease, but he did have a CAT scan in 2022 showing a normal gallbladder without stones. I want to give him a trial of Linzess. We will start 145 micro g and titrate to affect her side effect. Get records from [facility]. He says he also was tx'd for ulcers but does not know more. He may have had an EGD. ROV 4 week Orders: Orders Complete Blood Count Auto Diff Today K59.04 - Chronic idiopathic constipation Amylase Today K59.04 - Chronic idiopathic constipation Comprehensive Met. Panel Today K59.04 - Chronic idiopathic constipation TSH reflex Free T4 Today K59.04 - Chronic idiopathic constipation Lipase Today K59.04 - Chronic idiopathic constipation Medications: New linaclotide (Linzess) Take first thing in the morning with a full glass of water. 145 mcg PO QAM 30 caps 3RF K58.1 - Irritable bowel syndrome with constipation LABS Laboratory Tests 10/30/24 16:27 WBC 7.9 Hgb 14.3 Hct 40.1 L MCV 87.4 MCH 31.2 Plt Count 192 Estimated GFR > 60 Total Bilirubin 0.5 AST 30 ALT 54 H Alkaline Phosphatase 96 Amylase 54 Lipase 16 TSH 2.80 TODAYS VISIT [place] #Crystal Cardoza [facility] Medical History Gastritis HTN (hypertension) Surgical History H/O esophagogastroduodenoscopy H/O wisdom tooth extraction H/O colonoscopy Family History Brother Cancer Social History Alcohol intake: former Comment: Occasionally in the past Patient Tobacco Use Status: Never used Tobacco Review of Systems Const Denies fatigue, Denies fever(s), Denies night sweats, Denies poor appetite and Denies weight loss ENT Reports Normal hearing present, Denies dental pain, Denies dysphagia, Denies hearing loss, Denies mouth pain, Denies odynophagia, Denies throat swelling, Denies tongue swelling and Reports other (Dentition adequate) Card Reports no additional complaints Resp Reports no additional complaints GI Details: Rectal pain Denies abdominal pain, Denies melena, Denies bloating, Denies hematochezia, Reports constipation, Denies GI cramping, Denies dysphagia, Denies excessive flatus, Denies early satiety, Denies heartburn, Reports diarrhea, Denies nausea, Denies odynophagia, Denies vomiting and Denies hematemesis Skin/Breast Denies pruritus, Denies lesions, Denies rash and Denies jaundice Neuro Reports Normal hearing present and Denies Abnormal speech present Endo Denies fatigue Aller/Immun Denies throat swelling and Denies tongue swelling Physical Exam Vital Signs: Last Vital Signs BP 126/72 11/30/24 15:43 BMI result Body Mass Index 31.4 Const General: cooperative, no acute distress, well developed and well groomed Nutritional Appearance: well nourished and obese Orientation/consciousness: oriented to person, oriented to place and oriented to time Limitations: language barrier and other limitations (educational level) HEENT Head: Yes normocephalic and Yes atraumatic Eyes General: appearance normal, both eyes and all related structures Pupils: Equal, round and reactive pupils present Neck Neck: Yes normal visual inspection and Yes no lymphadenopathy Thyroid: Thyroid normal Resp Effort & Inspection: normal respiratory effort and able to speak in complete sentences Auscultation: clear to auscultation bilaterally Cardio Rate: regular rate Rhythm: regular rhythm Heart sounds: Normal, physiologic split S2 sound present Peripheral pulses: radial pulses present and posterior tibial pulses present GI Inspection: No distended, No Abdominal panniculus present and Yes obesity Palpation (GI): Soft to palpation, Tenderness to palpation present (GI) in the RLQ and in the LUQ, no guarding, not rigid and No hepatosplenomegaly present Percussion: Yes normal to percussion Auscultation: normal bowel sounds Rectal Exam - Male: Yes visual inspection normal, Yes normal sphincter tone, No Abnormal stool present, No External hemorrhoid(s) present, No Rectal prolapse, No Excoriation present (GI), No fecal impaction, No Anal fissure(s) present and No tenderness Skin General skin exam: no rashes or lesions noted, turgor normal, skin not dry, no jaundice, No spider nevi and no striae Rashes: no rashes Nails: normal Neuro General: oriented to person, oriented to place and oriented to time Cranial nerves: Yes Equal, round and reactive pupils present and Yes Normal hearing present Speech: No Abnormal speech present Extrem General: Yes normal to inspection, No clubbing, No cyanosis and No edema Psych Appearance: grossly normal and well kempt Mental Status: mental status grossly normal Speech and movement: Normal speech and movement present Affect: normal affect Attitude: cooperative Thought process: Circumstantial thought process present, not confabulating and Impoverished thought process present Thought content: Normal thought content present Insight: Limited insight present (Psych) Judgement: Limited judgement present (Psych) Assessment & Plan Assessment & Plan (1) Chronic idiopathic constipation: Code(s): K59.04 - Chronic idiopathic constipation Category: Medical (2) Abdominal cramping: Code(s): R10.9 - Unspecified abdominal pain Category: Medical Plan [place] #Crystal Live - The patient is a 49-year-old male presenting with constipation and anorectal irritation. - Reports persistent constipation coupled with bloating and abdominal cramping, heightened by occasional use of Linzess, leading to transient relief of bloating but causing loose stools. - Experiences persistent burning and itching in the anal region, previously identified with hemorrhoidal disease, exacerbated upon trial of hemorrhoid cream which led to discontinuation after one week due to further irritation. - Describes an unpleasant feeling of dampness around the anus, necessitating frequent cleaning. - Has engaged in misunderstanding concerning the nature of hemorrhoid treatment, notably surgical options, in the past. - Use of Linzess correlated with moderate improvement in bloating but with adverse gastrointestinal effects. - Thyroid function tests indicate normal functioning, indicating constipation is unrelated to thyroid issues. - Awaiting records from [facility] to clarify earlier gastrointestinal treatments. At this point we will decrease the Linzess since I think constipation is a major point in his bloating since he had some relief although he had diarrhea at the higher dose. We will start him on 72 micro g and titrate. I do not know what to make of his complaint of a feeling of rectal fluid. He denies that it is blood. I guess I will do a rectal swab and see if there is any unusual organisms contributing to this. He is agreeable to this. Return office visit in 3 weeks Medications: New linaclotide (Linzess) 72 mcg PO QAM 30 caps 6RF K59.04 - Chronic idiopathic constipation dicyclomine 10 mg PO QID 120 caps 3RF R10.9 - Unspecified abdominal pain Discontinued linaclotide Take first thing in the morning with a full glass of water. Discontinued Reason: Doctor's Order 145 mcg PO QAM 30 caps 3RF K58.1 - Irritable bowel syndrome with constipation Coding Level of Care Code Est Pt Level 4 (95236) Diagnoses Chronic idiopathic constipation K59.04 Abdominal cramping R10.9 Time Spent (min) 39
[2024-11-30 15:43] VITALS: BP 126/72; BMI 31.4
== END 2024-11-30 16:24 | disposition home or self-care (01) ==
LOC: HO.HGI 14:56
PROVIDERS: PCP Family Medicine; Visit Provider Nurse Practitioner
DX: K59.04 Chronic idiopathic constipation (principal); R10.9 Unspecified abdominal pain
CPT/HCPCS: 99214

== ENCOUNTER → 2024-11-30 14:56 | Outpatient (BNVA) | payer OTHER, SELFPAY | PROVIDERS: PCP Family Medicine; Visit Provider Nurse Practitioner | DX: K59.04 Chronic idiopathic constipation (principal); R14.0 Abdominal distension (gaseous); K21.9 Gastro-esophageal reflux disease without esophagitis | CPT/HCPCS: 99212 ==

== ENCOUNTER 2024-12-21 15:20 | Outpatient (REF) | payer OTHER, SELFPAY ==
[2024-12-21 17:03] LABS: Appearance Urine Clear; Glucose Urine UA Negative (Negative); PH 7.0 (5.0-9.0); Specific Gravity - Urine <= 1.005 (1.005-1.025)
[2024-12-21 17:05] LABS: Total Hemoglobin (HGBA1C) 3695.7876 umol/L
[2024-12-21 17:55] LABS: Folate 10.9 ng/mL (> or = 4.0); Vitamin B12 486 pg/mL (200-900)
[2024-12-22 08:43] LABS: HBS Num1 0.19 mIU/mL (0-7.99); HBc Num1 0.07 S/CO (0.00-0.79); HBsAGNum1 0.36 S/CO (0.00-0.99); Hepatitis B Surface Antigen Negative (Negative); ~Hepatitis B Surface Antibody NONREACTIVE (Nonreactive)
== END 2024-12-21 15:21 | disposition home or self-care (01) ==
LOC: HO.LAB 15:20
PROVIDERS: PCP Family Medicine; Visit Provider Nurse Practitioner
DX: K59.04 Chronic idiopathic constipation (principal); R11.2 Nausea with vomiting, unspecified; R30.0 Dysuria; E11.9 Type 2 diabetes mellitus without complications; R10.9 Unspecified abdominal pain; R20.0 Anesthesia of skin; R20.2 Paresthesia of skin; Z23 Encounter for immunization; Z79.899 Other long term (current) drug therapy
CPT/HCPCS: 36415; 81003; 82607; 82746; 83036; 84443; 86704; 86706; 87340; 99212

== ENCOUNTER 2024-12-21 15:20 | Outpatient (AMB) | payer OTHER, SELFPAY ==
--- OUTSIDE RECORDS SUMMARY | 2024-12-21 15:22 | XMS_ITS | Encounter Summary ---
Author Organization [employer] Address [address] [facility] [address] [place] [address] Care Team Providers Care Interventionist Name Role Phone Claudia Wilcox MD Primary Care Provider [phone] Reason for Visit * Reason Comments Med Refill Encounter Details Date Type Department Care Team ([facility] st Contact Info) Description 12/15/2024 Refill [facility] [address] [place], [place] [phone] Claudia Wilcox MD [address] [place] [address] Constipation, unspecified constipation type Social History Tobacco Use Types Packs/Day Years [...] as of this encounter Visit Diagnoses Diagnosis Constipation, unspecified constipation type documented in this encounter Additional Health Concerns Assessment Noted Time PHQ-9 Depression Total Score: 0 02/09/20 24 11:18 AM EST documented as of this encounter Care Teams Interventionist Relationship Specialty Start Date End Date Claudia Wilcox MD [address] [place] [address] PCP - General Family Medicine 11/29/23 documented as of this encounter
--- OUTSIDE RECORDS SUMMARY | 2024-12-21 15:23 | XMS_ITS | Clinical Summary ---
Author Organization [facility] Address [address] [place] [address] Care Team Providers Care Rail Detector Car Operator Name Role Phone Len Gutierrez MD Primary Care Provider [phone] Source Comments PLEASE NOTE, if this patient [...] file Insurance [employer] Care Teams Rail Detector Car Operator Relationship Specialty Start Date End Date Len Gutierrez MD [address] [place] [address] PCP - General Internal Medicine 09/24/15
--- OUTSIDE RECORDS SUMMARY | 2024-12-21 15:23 | XMS_ITS | Encounter Summary ---
Author Organization [employer] Address [address] [facility] 7t [place] [address] Care Team Providers Care Mannequin Maker Name Role Phone Claudia Wilcox MD Primary Care Provider [phone] Reason for Visit * Reason Onset Date Comments Appointment Request 12/27/2023 Encounter Details Date Type Department Care Team ([facility] st Contact Info) Description 12/27/2023 Telephone [facility] [address] [place] [address] Claudia Wilcox MD [address] [place], [place] [phone] Appointment Request Social History Tobacco Use Types [...] t he electric, gas, oil or water [employer] threatened to shut off services in your [...] documented as of this encounter Care Teams Mannequin Maker Relationship Specialty Start Date End Date Claudia Wilcox MD [address] [place] [phone] PCP - General Family Medicine 11/29/23 documented as of this encounter
--- OUTSIDE RECORDS SUMMARY | 2024-12-21 15:23 | XMS_ITS | Encounter Summary ---
Author Organization [facility] Address [address] [place] [address] Care Team Providers Care System Software Developer Name Role Phone Siena Dumas Primary Care Provider [phone] Encounter Details Date Type Department Care Team (Latest Contact Info) Description 08/08/2023 Transcribe Orders [facility]ician Referral [facility] [address] [place] [address] Siena Dumas [address] [place] [address] Hemorrhoids, unspecified hemorrhoid type (Primary Dx) Social [...] Primary documented in this encounter Care Teams System Software Developer Relationship Specialty Start Date End Date Siena Dumas [address] [place] [address] PCP - General Family Medicine 10/21/17 documented as of this encounter
--- OUTSIDE RECORDS SUMMARY | 2024-12-21 15:23 | XMS_ITS | Encounter Summary ---
Author Organization [facility] Address [address] [facility] 7t [place] [address] Care Team Providers Care Adult Educator Name Role Phone Siena Dumas MD Primary Care Provider [phone] Claudia Wilcox MD Primary Care Provider [phone] Encounter Details Date Type Department Care Team (Latest Contact Info) Description 03/06/2020 Abstract [facility] CONVERSIONS Dental, Provider, DDS Social History [...] on filedocumented in this encounter Care Teams Adult Educator Relationship Specialty Start Date End Date Siena Dumas MD [address] [place] [address] PCP - General Family Medicine 12/18/12 11/28/23 Claudia Wilcox MD [address] [place] [address] PCP - General Family Medicine 11/29/23 documented as of this encounter
--- OUTSIDE RECORDS SUMMARY | 2024-12-21 15:23 | XMS_ITS | Clinical Summary ---
Author Organization [facility] Address [address] [place] [address] Care Team Providers Care Catalyst Operator Name Role Phone Siena Dumas Primary Care Provider [phone] Allergies No known active allergies Medications omeprazole (PriLOSEC) 20 mg capsule Take 20 mg by mouth daily. 5 8 Active simvastatin (ZOCOR) 10 mg tablet Take 10 mg by mouth every evening. 3 8 Active bismuth subsalicylate (PEPTO BISMOL) 262 mg/15 mL suspension Take 15 mL by mouth as needed for diarrhea (only when needed - not regularly). Active ARTIFICIAL TEARS,DH-LOIL-ZIZV , 1-0.2-0.2 % drops 0 Active ibuprofen (MOTRIN) 800 mg tablet Take 800 mg by mouth 3 times a day. 0 Active aspirin chewable tablet 81 mg Chew and swallow 81 mg by mouth once a day. Active Active Problems Problem Noted Date Diagnosed Date H. pylori infection 08/10/2018 Chronic abdominal pain 01/11/2018 Overview (01/11/2018): Added automatically from request for surgery [id number] Social History Tobacco Use Types Packs/Day Years [...] Completed 12/10/2020, 12/10/2020 Procedures * Due to [place] state law, this organization might not be sharing negative HIV tests. Procedure Name Priority Date/Time Associated Diagnosis Comments COLONOSCOPY 12/14/2023 from Last 3 Months or Most Recently Relevant to Health Maintenance Results * Due to [place] state law, this organization might not be sharing negative HIV tests. * COLONOSCOPY (12/14/2023) Narrative Procedure Note Ana Zapata, - 12/14/2023 8:[address] [facility] Gastroenterology Patient Name: Irvin Loomis Procedure Date: [...] by the physician, the nurse and the tire technician in the endoscopy suite. Mental Status [...] and oxygen saturations were monitored continuously. [id number] was introduced through the anus andadvanced to [...] specimen was done by the nurse and tire technician. Estimated blood loss was minimal. The [...] Most Recently Relevant to Health Maintenance Insurance [facility] HSNO/FREE CARE Advance Directives * Full Code (Latest Code Status on File) Date Activated Date Inactivated Comments 12/14/2023 8:50 AM 12/14/2023 12:40 PM Care Teams Catalyst Operator Relationship Specialty Start Date End Date Siena Dumas [address] [place] [address] PCP - General Family Medicine 10/21/17
--- OUTSIDE RECORDS SUMMARY | 2024-12-21 15:23 | XMS_ITS | Encounter Summary ---
Author Organization [employer] Address 75 [facility] 7t [place] [address] Care Team Providers Care Botanical Technical Officer Name Role Phone Siena Dumas MD Primary Care Provider [phone] Claudia Wilcox MD Primary Care Provider [phone] Reason for Visit * Reason Onset Date Comments FYI 11/24/2023 Encounter Details Date Type Department Care Team ([facility] st Contact Info) Description 11/24/2023 Telephone [facility] [address] [place] [address] Siena Dumas MD [address] [place], [place] [phone] FYI Social History Tobacco Use Types Packs/Day [...] 8:37 AM EDT Donald Lynch at [facility] colon and rectal surgery calling to report [...] documented as of this encounter Care Teams Botanical Technical Officer Relationship Specialty Start Date End Date Siena Dumas MD [address] [place] [address] PCP - General Family Medicine 12/18/12 11/28/23 Claudia Wilcox MD [address] [place] [address] PCP - General Family Medicine 11/29/23 documented as of this encounter
--- OUTSIDE RECORDS SUMMARY | 2024-12-21 15:23 | XMS_ITS | Encounter Summary ---
Author Organization [employer] Address [address] [facility] 7t [place] [address] Care Team Providers Care Service Establishment Attendant Name Role Phone Siena Dumas MD Primary Care Provider [phone] Claudia Wilcox MD Primary Care Provider [phone] Encounter Details Date Type Department Care Team (Late st Contact Info) Description 11/24/2023 Orders Only [facility] [address] [place] [address] Provider, MD Emily Social History Tobacco Use [...] documented as of this encounter Care Teams Service Establishment Attendant Relationship Specialty Start Date End Date Siena Dumas MD [address] [place] [address] PCP - General Family Medicine 12/18/12 11/28/23 Claudia Wilcox MD [address] [place] [address] PCP - General Family Medicine 11/29/23 documented as of this encounter
--- OUTSIDE RECORDS SUMMARY | 2024-12-21 15:23 | XMS_ITS | Encounter Summary ---
Author Organization [facility] Address [address] [place] [address] Care Team Providers Care Frame Stripper And Crusher Name Role Phone Siena Dumas Primary Care Provider [phone] Encounter Details Date Type Department Care Team (Late st Contact Info) Description 11/17/2023 Orders Only [facility] Interventional Radiology [address] [place] [address] Иван Lepe MD [address] [place], [place] [phone] Social History Tobacco Use Types Packs/Day Years [...] on filedocumented in this encounter Care Teams Frame Stripper And Crusher Relationship Specialty Start Date End Date Siena Dumas [address] [place] [address] PCP - General Family Medicine 10/21/17 documented as of this encounter
--- OUTSIDE RECORDS SUMMARY | 2024-12-21 15:23 | XMS_ITS | Encounter Summary ---
Author Organization [facility] Address 75 [facility] 7t [place] [address] Care Team Providers Care Learning Development Specialist Name Role Phone Siena Dumas MD Primary Care Provider [phone] Claudia Wilcox MD Primary Care Provider [phone] Encounter Details Date Type Department Care Team (Latest Contact Info) Description 03/07/2019 Abstract [facility] CONVERSIONS Dental, Provider, DDS Social History Tobacco [...] on filedocumented in this encounter Care Teams Learning Development Specialist Relationship Specialty Start Date End Date Siena Dumas MD [address] [place] [address] PCP - General Family Medicine 12/18/12 11/28/23 Claudia Wilcox MD [address] [place] [address] PCP - General Family Medicine 11/29/23 documented as of this encounter
--- OUTSIDE RECORDS SUMMARY | 2024-12-21 15:23 | XMS_ITS | Clinical Summary ---
Author Organization [employer] Address [address] [facility] 7t [place] [address] Care Team Providers Care Brown Sourer Name Role Phone Claudia Wilcox MD Primary Care Provider [phone] Allergies No known active allergies Medications acetaminophen [...] NEEDED FOR ABDOMINAL PAIN 04/16/19 24 Active senna-docusate sodium (Senokot-S) 8.6-50 MG [...] BEDTIME 90 tablet 1 11/21/19 25 Active polyethylene glycol, PEG, 3350 (Glycolax) 17 GM/SCOOP powderIndications :Constipation, unspecified constipation type STIR 17GM INTO 8 OUNCES OF WATER, OR JUICE, AND DRINK DAILY NEEDED / DIRECTED 510 g 2 12/19/19 25 Active polyethylene glycol, PEG, 3350 (MiraLax) 17 GM/SCOOP powderIndications :Constipation, unspecified constipation type Take 17 g by mouth Once per day. 527 g 2 02/09/20 24 2024 Discontinued(R eorder (will not trigger notification to Pharmacy)) Active Problems Problem Noted Date Diagnosed Date [...] the area. Plan: - Consider referral to weblogic developer for further evaluation and possible treatment Gastritis [...] obtain test results from previous visits to [facility] and [facility]. Anal pruritus 07/04/2023 Assessment & Plan (09/18/2024 8:20 AM EDT): Patient reports rectal itching. Differential diagnoses include hemorrhoids, skin tags, or other anorectal conditions. Plan: - Prescribed Anusol cream for topical application to affected area Chronic has followup w/ GI History of Helicobacter pylori infection 023 Overview (02/08/2023): Previously followed by [facility] - Dr. Hidalgo (last available consult [...] protein consumption - Recommend consultation with a health insurance specialist (patient previously advised but found it difficult to follow recommendations) Obesity 12/05/2020 Assessment & Plan (02/13/2024 8:05 PM EST): Discussed calorie deficit, recommended reduction of 20-30% of maintenance calories; health insurance specialist referral offered. Recommended to decrease soda and sugary beverage consumption. Recommended at least 20 g per meal of protein to assist with satiety. Recommended at least 150 min/week of moderate intensity exercise. H. pylori infection 08/10/2018 Chronic abdominal pain 01/11/2018 Overview (02/07/2024): Added automatically from request for surgery [id number] Assessment & Plan (08/28/2024 10:06 AM EDT): Diffuse abdominal pain associated with rectal wetness, reports also intolerance to pork meat. At this moment, refer to GI. He has had endoscopies & colonoscopies done in [facility]. Pure hypercholesterolemia 10/08/2015 Encounters Date Type Department Care Team Description 12/15/2024 Refill [facility] [address] [place], [place] [phone] Claudia Wilcox MD Constipation, unspecified constipation type 11/17/2024 Refill [facility] [address] [place] [address] Claudia Wilcox MD 10/30/2024 Orders Only GENERIC EXTERNAL DATA DEPARTMENT Provider, Generic External Data from Last 3 Months Immunizations Immunization Administration [...] of 3 - 19+ 3-dose series) 1993 FOBT 07/06/2024 07/07/2023 COVID-19 Vaccine ( season) 2024 03/18/2021, 07/14/2020, 06/16/2020 Influenza Vaccine [...] DIFFERENTIAL Routine 10/30/2024 4:27 PM EDT POCT GLYCATED HEMOGLOBIN, TOTAL Routine 08/24/2024 10:25 [...] to Free T4 (10/30/2024 4:27 PM EDT) Pathologist [facility] TSH reflex Free T4 2.80 0.32 - 4.0 uIU/mL [facility] 10/30/2024 4:27 PM EDT 10/30/2024 4:28 PM EDT us Generic External Data Provider LAB BLOOD ORDERAB LES Final Result [facility] [address] [place] [phone] * (ABNORMAL) CBC auto differential (10/30/2024 4:27 PM EDT) Pathologist [facility] White Blood Count 7.9 4.8 - 10.8 X10*3/uL [facility] Red Blood Count 4.59(L) 4.60 - 5.80 X10*6/uL [facility] Hemoglobin 14.3 14.0 - 18.0 g/dl [facility] Hematocrit 40.1(L) 42.0 - 52.0 % [facility] Mean Corpuscular Volume 87.4 80.0 - 98.0 fL [facility] Mean Corpuscular Hemoglobin 31.2 27.0 - 33.0 pg [facility] Mean Corpuscular HGB Conc 35.7 31.0 - 36.0 g/dl [facility] Red Cell Distribution Width 12.8 11.0 - 16.0 % [facility] Platelet Count 192 160 - 400 X10*3/uL [facility] Mean Platelet Volume 9.8 9.4 - 12.4 fL [facility] Neutrophils Percent Auto 63.3 45 - 73 % [facility] Imm Gran Pct Auto 0.4 0.0 - 0.4 % [facility] Lymphocytes Percent Auto 29.0 20 - 40 % [facility] Monocytes Percent Auto 5.9 2 - 11 % [facility] Eosinophils Percent Auto 0.8 0 - 4 % [facility] Basophils Percent Auto 0.6 0 - 2 % [facility] NRBC Pct Auto 0.0 0.0 - 0.2 /100WBC [facility] Neutrophils Absolute Auto 5.0 2.0 - 8.3 x10*3/uL [facility] Imm Gran Abs Auto 0.03 0.00 - 0.03 X10*3/uL [facility] Lymphocytes Absolute Auto 2.3 1.2 - 4.9 X10*3/uL [facility] Monocytes Absolute Auto 0.5 0.1 - 1.2 X10*3/uL [facility] Eosinophils Absolute Auto 0.1 0.0 - 0.4 X10*3/uL [facility] Basophils Absolute Auto 0.1 0.0 - 0.2 X10*3/uL [facility] NRBC Abs Auto 0.000 0.0 - 0.012 X10*3/uL [facility] 10/30/2024 4:27 PM EDT 10/30/2024 4:28 PM EDT us Generic External Data Provider LAB BLOOD ORDERAB LES Final Result [facility] [address] [place] [address] [phone] * Lipase (10/30/2024 4:27 PM EDT) Lipase 16 8 - 78 U/L [facility] 10/30/2024 4:27 PM EDT 10/30/2024 4:28 PM EDT us Generic External Data Provider LAB BLOOD ORDERAB LES Final Result [facility] [address] [place] [address] [phone] * Amylase (10/30/2024 4:27 PM EDT) Amylase 54 28 - 100 U/L [facility] 10/30/2024 4:27 PM EDT 10/30/2024 4:28 PM EDT us Generic External Data Provider LAB BLOOD ORDERAB LES Final Result Performing Organization Address City/[facility]/ZIP Co de Phone Number [facility] [address] [place] [address] [phone] * (ABNORMAL) Comprehensive Metabolic Panel (10/30/2024 4:27 PM EDT) Sodium 140 135 - 145 mmol/L [facility] Potassium 3.8 3.3 - 5.1 mmol/L [facility] Chloride 101 96 - 108 mmol/L [facility] Carbon Dioxide 30(H) 22 - 29 mmol/L [facility] Anion Gap 13 12 - 20 [facility] Urea Nitrogen (BUN) 15 9 - 16 mg/dL [facility] Creatinine, Serum 0.75 0.5 - 1.4 mg/dL [facility] Estimated Glomerular Filt Rate >60 [facility] Comment:Chronic Kidney Disea se: Estimated GFR < 60 mL/min/1.18a3Zckkvn Kidney Disease: Estimated GFR < 15 mL/min/1.73m2 Glucose 97 60 - 115 mg/dL [facility] Calcium 9.5 8.4 - 10.2 mg/dL [facility] Bilirubin, Total 0.5 0.0 - 1.0 mg/dL [facility] Aspartate Amino Transferase 30 5 - 37 U/L [facility] Alanine Aminotransferase 54(H) 0 - 40 U/L [facility] Total Protein 8.0 6.5 - 8.0 g/dL [facility] Albumin Level 4.8 3.5 - 5.0 g/dL [facility] Alkaline Phosphatase 96 39 - 117 U/L [facility] 10/30/2024 4:27 PM EDT 10/30/2024 4:28 PM EDT Generic External Data Provider LAB BLOOD ORDERAB LES Final Result Performing Organization Address [facility]/ZIP Co de Phone Number [facility] [address] [place] [phone] * (ABNORMAL) POCT HGB A1C (08/24/2024 10:25 AM EDT) Hemoglobin A1C 6.3(A) 4.0 - 6.0 % QC Media Lot # [id number] Lot# Expiration Date Blood 08/24/2024 10:2 5 AM EDT Result [facility] Claudia Wilcox MD POINT OF CARE TEST ENTER/EDIT ORDERABLES Final Result * Hepatitis C Antibody with Reflex to HCV, RNA, Quantitative, Real-Time PCR (02/09/2024 1:14 PM EST) Hepatitis C Antibody Nonreactive Nonreactive [facility] Comment:Antibodies to HCV no t detected; does not exclude early acuteHCV infection. Blood Venous blood specimen / Unknown 02/09/2024 1:14 PM EST 02/09/2024 2:50 PM EST Claudia Wilcox MD LAB BLOOD ORDERABLES Final Re sult Performing Organization Address [facility]/ZIP Co de Phone Number [facility] [address] [place] [phone] * HIV-1/2 Antigen and Antibodies, Fourth Generation, with Reflexes (02/09/2024 1:14 PM EST) HIV AB/AG Nonreactive Nonreactive [facility] Comment:HIV-1 p24 Ag and/or HIV-1/HIV-2 Ab not detected.A test result that is nonreactive does not exclude thepossibility of exposure to or infection with HIV-1 and/orHIV-2. Nonreactive results in this assay for individualswith prior exposure to HIV-1 and/or HIV-2 may be due toantigen and antibody levels that are below the limit ofdetection of this assay.The [employer] HIV Ag/Ab Combo assay result andsupplemental assay results should be interpreted inconjunction with the patient's clinical presentation,history and other laboratory results. If the results areinconsistent with clinical evidence, additional testing issuggested to confirm the result. Blood Venous blood specimen / Unknown 02/09/2024 1:14 PM EST 02/09/2024 2:50 PM EST us Claudia Wilcox MD LAB BLOOD ORDERABLES Final Re sult [facility] [address] [place] [phone] * (ABNORMAL) Lipid Panel, Standard (02/09/2024 1:14 PM EST) Triglycerides 120 <150 mg/dL [facility] Comment:Desirable Triglyceri de: less than 150 mg/dLBorderline High Triglyceride 150-199 mg/dLHigh Triglyceride: 200-499 mg/dLVery High Triglyceride: greater than or equal to 5OO mg/dL Cholesterol 219(H) <200 mg/dL [facility] Comment:Desirable Cholestero l: less than 200 mg/dLBorderline High Cholesterol: 200-239 mg/dLHigh Cholesterol: greater than 239 mg/dL LDL Cholesterol Calculated 149(H) <100 mg/dL [facility] Comment:Desirable LDL: less than 100 mg/dLNear Optimal/Above Optimal LDL: 110- 129 mg/dLBorderline High LDL: 130-159 mg/dLHigh LDL: 160-189 mg/dLVery High LDL: greater than or equal to 190 mg/dL HDL Cholesterol 46 >40 mg/dL [facility] Comment:Desirable HDL: great er than 40 mg/dL Note: This HDL assay may give artificially low results in patients with liver disease. Blood Venous blood specimen / Unknown 02/09/2024 1:14 PM EST 02/09/2024 2:50 PM EST us Claudia Wilcox MD LAB BLOOD ORDERABLES Final Re sult [facility] [address] [place] [address] [phone] * Colonoscopy (12/14/2023 11:50 AM EDT) Historical Provider HEALTH MAINTENANCE Final Result * Cologuard?? colon cancer screening (07/07/2023 9:08 PM EDT) Cologuard Result Negative Negative 07/14/19 8:34 PM EDT [facility] (CLIA #:[id number]) Comment: NEGATIVE TEST RESULT. A negative Cologuard [...] screened with both Cologuard and colonoscopy. (Meche Hernandez, N Engl J Med 2014;370(14):8817-0410) The normal value (reference range) for this assay is negative. COLOGUARD RE-SCREENING RECOMMENDATION: Periodic colorectal cancer screening is an important part of preventive healthcare for asymptomatic individuals at average risk for colorectal cancer. Following a negative Cologuard result, the [place] Cancer Society and U.S. Multi-Society Task Force screening guidelines recommend a Cologuard re-screening interval of 3 years. References: [place] [employer] Guideline for Colorectal Cancer Screening: https://www.cancer.org/cancer/wefzg-mqvzsu-vnznqj/vmkxjdouf-kbnkzzzrz-astpllv/ac s-rec ommendations.html.; Lev DK, Jacob CR, Wanda RaoK, Colorectal Cancer Screening: Recommendations for Physicians and Patients from the U.S. Multi-Society Task Force on Colorectal Cancer Screening , Am J Gastroenterology 2017; 112:4716-4556. TEST DESCRIPTION: Composite algorithmic analysis of stool [...] (Meche Pagan al, N Engl J Med 2014;370(14):9949-4688.) Cologuard may produce a false negative or false positive result (no colorectal cancer or precancerous polyp present at colonoscopy follow up). A negative Cologuard test result does not guarantee the absence of CRC or advanced adenoma (pre-cancer). The current Cologuard screening interval is every 3 years. ([place] [employer] and U.S. Multi-Society Task Force). Cologuard performance data in a 10,000 patient pivotal study using colonoscopy as the reference method can be accessed at the following location: www.[employer].com/results. Additional description of the Cologuard test process, warnings and precautions can be found at www.colAvincel Consultingrd.com. Stool specimen (specimen) 07/07/2023 9:08 PM EDT 07/09/2023 11:39 AM EDT us Claudia Wilcox MD LAB MOLECULAR DIAGNOSTICS ORD ERABLES Final Result [facility] (CLIA #:[id number]) [address] [place] [address], from Last 3 Months or Most Recently Relevant to Health Maintenance Insurance [facility] FULL (MEDICAID) Care Teams Brown Sourer Relationship Specialty Start Date End Date Claudia Wilcox MD [address] [place] [phone] PCP - General Family Medicine 11/29/23
--- OUTSIDE RECORDS SUMMARY | 2024-12-21 15:23 | XMS_ITS | Encounter Summary ---
Author Organization [employer] Address [address] [facility] 7t [place] [address] Care Team Providers Care Coil Binder Name Role Phone Claudia Wilcox MD Primary Care Provider [phone] Encounter Details Date Type Department Care Team (Late st Contact Info) Description 12/14/2023 Orders Only [facility] [address] [place] [address] Provider, MD Emily Social History Tobacco Use [...] documented as of this encounter Care Teams Coil Binder Relationship Specialty Start Date End Date Claudia Wilcox MD [address] [place] [phone] PCP - General Family Medicine 11/29/23 documented as of this encounter
[2024-12-21 15:32] VITALS: BP 139/82; BMI 31.9
--- NOTE | 2024-12-21 15:32 | A.OFFVIS_ITS ---
Vital Signs 12/21/24 15:32 Height 5 ft 4 in Weight 186 lb 1.122 oz BMI 31.9 BP 139/82 Blood Pressure Location Rt brachial Position Sitting Intake Visit Reasons: 3 week FUV. Culture results Intake Note: Irvin returns to in office follow up for culture results. CC: Patient c/o abdominal bloating, abd burning sensation, rectal burning, and sometimes lower back burning. He aslo c/o nausea usually in the morning. 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 Culture results: Details: Assessment & Plan (1) Chronic idiopathic constipation: Code(s): K59.04 - Chronic idiopathic constipation Category: Medical (2) Abdominal cramping: Code(s): R10.9 - Unspecified abdominal pain Category: Medical Medications: New linaclotide (Linzess) 72 mcg PO QAM 30 caps 6RF K59.04 - Chronic idiopathic constipation dicyclomine 10 mg PO QID 120 caps 3RF R10.9 - Unspecified abdominal pain Discontinued linaclotide (Linzess) Take first thing in the morning with a full glass of water. Discontinued Reason: Doctor's Order 145 mcg PO QAM 30 caps 3RF K58.1 - Irritable bowel syndrome with constipation Apparently the patient has been seen at [facility] in the past for this. He was seen there for about a year, but it because too far for him to travel. Onset 4 years of bloating after eating. He also has a lot of rectal burning and itching and there is liquid that comes out. It does not stain the underwear, but his rectum feels wet. HE suffers CIC. He may go for 2 days w/o a BM, and when he does move his bowels they are long and skinny. He has used Miralax and bisacodyl, but he was told to only take it prn and not daily. He had no success with senna, fiber, or colace. He denies any weight loss, he was told he needs to lose weight because he is diabetic. He also denies any nausea vomiting or trouble swallowing. He will have pain only occasionally in the bilateral lower quadrants that is intermittent. He only of heartburn if she forgets to take his omeprazole. He had a colonoscopy about 6 mos ago at [facility]. He was told only that he had polyps. The only other study he can remember is something where I had to drink a white liquid. HIs PCP told him he had roids. He has tried creams in the past w/o good results. He does not know of any FHX of similar sx - he had a brother who passed of ca but he dose not know what type. He does not know if there is a family history of gallbladder disease, but he did have a CAT scan in 2022 showing a normal gal lbladder without stones. I want to give him a trial of Linzess. We will start 145 micro g and titrate to affect her side effect. Get records from [facility]. He says he also was tx'd for ulcers but does not know more. He may have had an EGD. ROV 4 week REVIEW OF RECORDS SENT FROM [facility] This shows a colonoscopy in 2023 with 2 polyps removed, unfortunately the biopsy report is missing. He also had an upper endoscopy in 2019 that showed a normal esophagus and stomach but was positive for H pylori. Unfortunately there is no notes indicate treatment or whether he was retested to confirm eradication, however we do have H pylori stool test obtained here in 2022 in 2023 that are negative. TODAYS VISIT Citizen Of [place] #Crystal Cardoza [facility] Medical History Gastritis HTN (hypertension) Surgical History H/O esophagogastroduodenoscopy H/O wisdom tooth extraction H/O colonoscopy Family History Brother Cancer Social History Alcohol intake: former Comment: Occasionally in the past Patient Tobacco Use Status: Never used Tobacco Review of Systems Const Denies fatigue, Denies fever(s), Denies night sweats, Denies poor appetite and Denies weight loss ENT Reports Normal hearing present, Denies dental pain, Denies dysphagia, Denies hearing loss, Denies mouth pain, Denies odynophagia, Denies throat swelling, Denies tongue swelling and Reports other (Dentition adequate) Card Reports no additional complaints Resp Reports no additional complaints GI Details: Reports abdominal pain, Denies melena, Reports bloating, Denies hematochezia, Reports constipation, Denies GI cramping, Denies dysphagia, Denies excessive flatus, Denies early satiety, Denies heartburn, Denies diarrhea, Reports nausea, Denies odynophagia, Reports vomiting and Denies hematemesis Reports difficulty urinating and Reports dysuria Skin/Breast Denies pruritus, Denies lesions, Denies rash and Denies jaundice Neuro Reports Normal hearing present and Denies Abnormal speech present Endo Denies fatigue Aller/Immun Denies throat swelling and Denies tongue swelling Physical Exam Vital Signs: Last Vital Signs BP 139/82 12/21/24 15:32 BMI result Body Mass Index 31.9 Const General: cooperative, no acute distress, well developed and well groomed Nutritional Appearance: well nourished and obese centrally obese Orientation/consciousness: oriented to person, oriented to place and oriented to time Limitations: language barrier HEENT Head: Yes normocephalic and Yes atraumatic Eyes General: appearance normal, both eyes and all related structures Pupils: Equal, round and reactive pupils present Neck Neck: Yes normal visual inspection and Yes no lymphadenopathy Thyroid: Thyroid normal Resp Effort & Inspection: normal respiratory effort and able to speak in complete sentences Auscultation: clear to auscultation bilaterally Cardio Rate: regular rate Rhythm: regular rhythm Heart sounds: Normal, physiologic split S2 sound present Peripheral pulses: radial pulses present and posterior tibial pulses present GI Inspection: Yes distended, No Abdominal panniculus present and Yes obesity Palpation (GI): Soft to palpation, nontender, no guarding, not rigid and No hepatosplenomegaly present Percussion: Yes normal to percussion Auscultation: normal bowel sounds Rectal Exam - Male: Yes deferred Skin General skin exam: no rashes or lesions noted, turgor normal, skin not dry, no jaundice, No spider nevi and no striae Rashes: no rashes Nails: normal Neuro General: oriented to person, oriented to place and oriented to time Cranial nerves: Yes Equal, round and reactive pupils present and Yes Normal hearing present Speech: No Abnormal speech present Extrem General: Yes normal to inspection, No clubbing, No cyanosis and No edema Psych Appearance: grossly normal and well kempt Mental Status: mental status grossly normal Speech and movement: Normal speech and movement present Affect: normal affect Attitude: cooperative Thought process: not confabulating, Impoverished thought process present and Tangential thought process present Thought content: Normal thought content present Insight: Limited insight present (Psych) and Poor insight present (Psych) Judgement: Limited judgement present (Psych) and Poor judgement present (Psych) Assessment & Plan Assessment & Plan (1) Chronic idiopathic constipation: Code(s): K59.04 - Chronic idiopathic constipation Category: Medical (2) Nausea and vomiting: Code(s): R11.2 - Nausea with vomiting, unspecified Category: Medical (3) Diabetes: Code(s): E11.9 - Type 2 diabetes mellitus without complications Category: Medical (4) Dysuria: Code(s): R30.0 - Dysuria Category: Medical Plan He received the Linzess but even at the lowest dose of 72 micro g it would cause diarrhea. He continues to complain of generalized abdominal burning starting in the lower abdomen and spreading to periumbilical area. He also has severe bloating along with rectal spasms and cramping. I really believe this still is constipation, unfortunately the patient's self report is all over the place. He is really a difficult historian to follow, and I am uncertain if this is cultural or a language/interpretation barrier at play. His [place] language is [place]. Many of his answers appear to be non-sequitur to the question presented. I think we are going to try moving to Amitiza 8 micro g twice a day and adding simethicone. Since he had no side effects but insufficient relief with the dicyclomine we will increase it to 20 mg 4 times a day. We review the culture obtained from the rectum since he complains of a ?wet? feeling and it showed only normal floor with no treatable cause. There were also no severe hemorrhoids noted on the last rectal exam. He has a doorknob complaint of difficulty urinating/pain with urination. Get a urinalysis to see if there is a UTI at play. I think we should get a gastric emptying study and a hemoglobin A1c to see if his diabetes is playing into the presentation. Return office visit in 4 weeks Orders: Orders UA CC w/rflx Micro + Cult 12/21/24 E11.9 - Type 2 diabetes mellitus without complications, R30.0 - Dysuria NM gastric emptying study 12/21/24 R11.2 - Nausea with vomiting, unspecified Hemoglobin A1c 12/21/24 E11.9 - Type 2 diabetes mellitus without complications, R30.0 - Dysuria Medications: New simethicone after meals 180 mg PO QID 120 caps 3RF 30 days lubiprostone (Amitiza) 8 mcg PO BID 60 caps 6RF K59.04 - Chronic idiopathic constipation dicyclomine 20 mg PO QID 120 tabs 6RF 30 days Discontinued linaclotide (Linzess) Discontinued Reason: Doctor's Order 72 mcg PO QAM 30 caps 6RF K59.04 - Chronic idiopathic constipation dicyclomine Discontinued Reason: Doctor's Order 10 mg PO QID 120 caps 3RF R10.9 - Unspecified abdominal pain Coding Level of Care Code Est Pt Level 3 (50454) Diagnoses Chronic idiopathic constipation K59.04 Nausea and vomiting R11.2 Diabetes E11.9 Dysuria R30.0
== END 2024-12-21 16:23 | disposition home or self-care (01) ==
LOC: HO.HGI 15:21
PROVIDERS: PCP Family Medicine; Visit Provider Nurse Practitioner
DX: K59.04 Chronic idiopathic constipation (principal); R11.2 Nausea with vomiting, unspecified; E11.9 Type 2 diabetes mellitus without complications; R30.0 Dysuria
CPT/HCPCS: 99213

== ENCOUNTER 2025-01-18 14:51 | Outpatient (AMB) | payer OTHER, SELFPAY ==
[2025-01-18 14:58] VITALS: BP 144/88; PULSE 101; BMI 31.9
--- NOTE | 2025-01-18 14:58 | A.OFFVIS_ITS ---
Vital Signs 01/18/25 14:58 Height 5 ft 4 in Weight 185 lb 10.067 oz BMI 31.9 BP 144/88 H Blood Pressure Location Rt brachial Position Sitting Pulse 101 H Intake Visit Reasons: Follow ub lab results Intake Note: Irvin presents in follow up for lab results. CC: Patient c/o rectal burning sensation and feeling his rectum moist. He also c/o rectal pain, burning, and itching after BMs. He states that he stopped taking the lubiprostone because it would cause him diarrhea. 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 Accompanied by: Self / Same As Patient Allergies No Known Allergies Allergy (Verified 12/21/24 15:42) HPI HPI Follow ub lab results: Details: Assessment & Plan (1) Chronic idiopathic constipation: Code(s): K59.04 - Chronic idiopathic constipation Category: Medical (2) Nausea and vomiting: Code(s): R11.2 - Nausea with vomiting, unspecified Category: Medical (3) Diabetes: Code(s): E11.9 - Type 2 diabetes mellitus without complications Category: Medical (4) Dysuria: Code(s): R30.0 - Dysuria Category: Medical Plan He received the Linzess but even at the lowest dose of 72 micro g it would cause diarrhea. He continues to complain of generalized abdominal burning starting in the lower abdomen and spreading to periumbilical area. He also has severe bloating along with rectal spasms and cramping. I really believe this still is constipation, unfortunately the patient's self report is all over the place. He is really a difficult historian to follow, and I am uncertain if this is cultural or a language/interpretation barrier at play. His [place] language is [place]. Many of his answers appear to be non-sequitur to the question presented. I think we are going to try moving to Amitiza 8 micro g twice a day and adding simethicone. Since he had no side effects but insufficient relief with the dicyclomine we will increase it to 20 mg 4 times a day. We review the culture obtained from the rectum since he complains of a ?wet? feeling and it showed only normal SARAH with no treatable cause. There were also no severe hemorrhoids noted on the last rectal exam. He has a doorknob complaint of difficulty urinating/pain with urination. Get a urinalysis to see if there is a UTI at play. I think we should get a gastric emptying study and a hemoglobin A1c to see if his diabetes is playing into the presentation. Return office visit in 4 weeks Orders: Orders UA CC w/rflx Micro + Cult 12/21/24 E11.9 - Type 2 diabetes mellitus without complications, R30.0 - Dysuria NM gastric emptying study 12/21/24 R11.2 - Nausea with vomiting, unspecified Hemoglobin A1c 12/21/24 E11.9 - Type 2 diabetes mellitus without complications, R30.0 - Dysuria Medications: New simethicone after meals 180 mg PO QID 120 caps 3RF 30 days lubiprostone (Amitiza) 8 mcg PO BID 60 caps 6RF K59.04 - Chronic idiopathic constipation dicyclomine 20 mg PO QID 120 tabs 6RF 30 days Discontinued linaclotide (Linzess) Discontinued Reason: Doctor's Order 72 mcg PO QAM 30 caps 6RF K59.04 - Chronic idiopathic constipation dicyclomine Discontinued Reason: Doctor's Order 10 mg PO QID 120 caps 3RF R10.9 - Unspecified abdominal pain LABS: 12/21/24 Collection Time: 1624 Source: Urine, Clean Catch Test Result Flag Reference Ur Color Yellow Ur Appear Clear PH 7.0 5.0-9.0 Ur Glu Negative Negative mg/dL Urine Blood Negative Negative Spec [place] Ur <= 1.005 1.005-1.025 Urine Protein Negative Neg-Trace mg/dL Urine Ketones Negative Negative mg/dL Ur Nitrite Negative Negative Ur Rodo Esterase Negative Negative Laboratory Tests 12/21/24 16:35 Hemoglobin A1c % 6.2 H GASTRIC EMPTYING STUDY 01/30/2025 TODAY'S VISIT [place] # PFSH Medical History Gastritis HTN (hypertension) Surgical History H/O esophagogastroduodenoscopy H/O wisdom tooth extraction H/O colonoscopy Family History Brother Cancer Social History Alcohol intake: former Comment: Occasionally in the past Patient Tobacco Use Status: Never used Tobacco Review of Systems Const Denies fatigue, Denies fever(s), Denies night sweats, Denies poor appetite and Denies weight loss ENT Reports Normal hearing present, Denies dental pain, Denies dysphagia, Denies hea ring loss, Denies mouth pain, Denies odynophagia, Denies throat swelling, Denies tongue swelling and Reports other (Dentition adequate) Card Reports no additional complaints Resp Reports no additional complaints GI Details: Proctalgia fugax Denies abdominal pain, Denies melena, Denies bloating, Denies hematochezia, Denies constipation, Reports GI cramping, Denies dysphagia, Denies excessive flatus, Denies early satiety, Denies heartburn, Denies diarrhea, Denies nausea, Denies odynophagia, Denies vomiting and Denies hematemesis Skin/Breast Denies pruritus, Denies lesions, Denies rash and Denies jaundice Neuro Reports Normal hearing present and Denies Abnormal speech present Endo Denies fatigue Aller/Immun Denies throat swelling and Denies tongue swelling Physical Exam Vital Signs: Last Vital Signs Pulse 101 H 01/18/25 14:58 BP 144/88 H 01/18/25 14:58 BMI result Body Mass Index 31.9 Const General: cooperative, no acute distress, well developed and well groomed Nutritional Appearance: well nourished and obese Orientation/consciousness: oriented to person, oriented to place and oriented to time Limitations: language barrier and other limitations (Educational level) HEENT Head: Yes normocephalic and Yes atraumatic Eyes General: appearance normal, both eyes and all related structures Pupils: Equal, round and reactive pupils present Neck Neck: Yes normal visual inspection and Yes no lymphadenopathy Thyroid: Thyroid normal Resp Effort & Inspection: normal respiratory effort and able to speak in complete sentences Auscultation: clear to auscultation bilaterally Cardio Rate: regular rate Rhythm: regular rhythm Heart sounds: Normal, physiologic split S2 sound present Peripheral pulses: radial pulses present and posterior tibial pulses present GI Inspection: No distended, Yes Abdominal panniculus present and Yes obesity Palpation (GI): Soft to palpation, nontender, no guarding, not rigid and No hepatosplenomegaly present Percussion: Yes normal to percussion Auscultation: normal bowel sounds Rectal Exam - Male: Yes deferred Skin General skin exam: no rashes or lesions noted, turgor normal, skin not dry, no jaundice, No spider nevi and no striae Rashes: no rashes Nails: normal Neuro General: oriented to person, oriented to place and oriented to time Cranial nerves: Yes Equal, round and reactive pupils present and Yes Normal hearing present Speech: No Abnormal speech present Extrem General: Yes normal to inspection, No clubbing, No cyanosis and No edema Psych Appearance: grossly normal and well kempt Mental Status: mental status grossly normal Speech and movement: Normal speech and movement present Affect: normal affect Attitude: cooperative Thought process: Normal thought process present and not confabulating Thought content: Normal thought content present Insight: Poor insight present (Psych) Judgement: Poor judgement present (Psych) Results Reviewed Results Reviewed: 12/21/24 Collection Time: 1624 Source: Urine, Clean Catch Test Result Flag Reference Ur Color Yellow Ur Appear Clear PH 7.0 5.0-9.0 Ur Glu Negative Negative mg/dL Urine Blood Negative Negative Spec [place] Ur <= 1.005 1.005-1.025 Urine Protein Negative Neg-Trace mg/dL Urine Ketones Negative Negative mg/dL Ur Nitrite Negative Negative Ur Rodo Esterase Negative Negative Laboratory Tests 12/21/24 16:35 Hemoglobin A1c % 6.2 H Assessment & Plan Assessment & Plan (1) Chronic idiopathic constipation: Code(s): K59.04 - Chronic idiopathic constipation Category: Medical (2) Abdominal bloating: Code(s): R14.0 - Abdominal distension (gaseous) Category: Medical (3) Rectal pain: Code(s): K62.89 - Other specified diseases of anus and rectum Category: Medical (4) GERD (gastroesophageal reflux disease): Code(s): K21.9 - Gastro-esophageal reflux disease without esophagitis Category: Medical Plan [place] #Chio Alcocer She says that he has all of the medications, the Amitiza, the simethicone, and the dicyclomine but it has not made a difference in his generalized feeling of burning particularly in the lower abdomen as he describes it today. Frequently it is periumbilical. However his biggest concern, as he can continues to perseverate, is on his feeling of wetness and burning in the rectum. He notes that this is worse when he has to move his bowels and I tried to explain, especially since he is having itching as well, that this is usually a sign of hemorrhoids. He then objects saying that he is not bleeding, I tell him that just because you have hemorrhoids does not mean they necessarily we are going to bleed. However, in the past he has had no success with utilization of hemorrhoid creams. I have also given him a trial of [id number] Calmoseptine cream to see if this gave him any rectal soothing but it did not. So far as his bloating the gastric emptying study is upcoming. He is prediabetic with an A1c above 6 so it is possible he has some delay in gastric emptying affecting the bloating piece of the symptomatology. He is really focused on having another study to address his rectal concerns. I have done a full rectal exam and cultured the rectal area without finding any significant problems. I think will try sending him to General surgery for a hemorrhoid evaluation as they do in office proctoscope exams. It is somewhat clumsy being that he had a recent colonoscopy but it was done at [facility], apparently they did not have any significant findings. Return office visit after the gastric emptying study GASTRIC EMPTYING STUDY 01/30/2025 Orders: Referrals General Surgery Referral K64.9 - Unspecified hemorrhoids Coding Level of Care Code Est Pt Level 3 (19249) Diagnoses Chronic idiopathic constipation K59.04 Abdominal bloating R14.0 Rectal pain K62.89 GERD (gastroesophageal reflux disease) K21.9
== END 2025-01-18 15:43 | disposition home or self-care (01) ==
LOC: HO.HGI 14:52
PROVIDERS: PCP Family Medicine; Visit Provider Nurse Practitioner
DX: K59.04 Chronic idiopathic constipation (principal); R14.0 Abdominal distension (gaseous); K62.89 Other specified diseases of anus and rectum; K21.9 Gastro-esophageal reflux disease without esophagitis
CPT/HCPCS: 99213

== ENCOUNTER → 2025-01-18 14:51 | Outpatient (BNVA) | payer OTHER, SELFPAY | PROVIDERS: PCP Family Medicine; Visit Provider Nurse Practitioner | DX: Z71.2 Person consulting for explanation of examination or test findings (principal); K59.04 Chronic idiopathic constipation; R14.0 Abdominal distension (gaseous); K62.89 Other specified diseases of anus and rectum; K21.9 Gastro-esophageal reflux disease without esophagitis | CPT/HCPCS: 99212 ==

== ENCOUNTER → 2025-01-30 08:08 | Outpatient (REF) | payer OTHER, SELFPAY ==
--- NOTE | ~2025-01-30 | NM_ITS ---
EXAMINATION: PR RADIONUCLIDE SOLID FOOD GASTRIC EMPTYING 4-HOUR STUDY CLINICAL INFORMATION: R11.2 - Nausea with vomiting, unspecified COMPARISON: There are no prior studies available for comparison. TECHNIQUE: A standard meal consisting of 4 oz of Egg Beaters brand tagged with 0.98 mCi Tc-99m Sulfur Colloid, 4 oz water and 1 slice of toast with jelly was administered orally to the patient. Images were obtained using a dual head gamma camera in the anterior and posterior projections over of the stomach immediately post ingestion and at hourly intervals up to 4 hours post ingestion. The anterior and posterior counts at each time interval were averaged using the geometric mean and expressed as percentage of the immediate post ingestion counts. FINDINGS: There is visualization of activity in the stomach immediately post ingestion. As the study progresses, there is clearance of activity from the stomach and visualization of progressively increasing small bowel activity. By the end of the study, there is almost no retention noted in the stomach. Retention in the stomach at each time interval was: 1 hour 70% (normal 37%-90%) 2 hours 52% (normal 30%-60%) 3 hours 27% 4 hours 9% (normal 0%-10%) PR/PR gastric emptying study IMPRESSION: Normal 4-hour solid food gastric emptying study. For solid meal, rapid gastric emptying is less than 30% at 60 minutes. Delayed gastric emptying criteria is more than 60% remaining at 120 minutes or more than 10% at 240 minutes. The 4-hour value is the best discriminator of a normal or abnormal result). Gastric emptying study grading per JNMT Consensus Recommendations in 2008 (https://tech.snmjournals.org/content/36/1/44) Grade 1 (mild retention): 11-20% at 4h Grade 2 (moderate retention): 21-35% at 4h Grade 3 (severe retention): 36-50% at 4h Grade 4 (very severe retention): >50% retention at 4h Electronically signed by: Terell Douglas MD 01/30/2025 12:53 PM EDT
--- OUTSIDE RECORDS SUMMARY | 2025-01-30 08:20 | XMS_ITS | Clinical Summary ---
Author Organization [employer] Address [address] [facility] 7t [place] [address] Care Team Providers Care Medical Services Assistant Name Role Phone Claudia Wilcox MD Primary Care Provider [phone] Allergies No known active allergies Medications acetaminophen [...] DAY NEEDED FOR ABDOMINAL PAIN 4 Active senna-docusate sodium (Senokot-S) 8.6-50 MG [...] EVERY MORNING 90 tablet 1 5 Active hydrocortisone (Anusol-HC) 2.5 % rectal creamIndications:A nal pruritus Insert into the rectum 2 times daily. 60 g 5 Active metFORMIN (Glucophage) 500 MG tablet TAKE ONE TABLET AT BEDTIME 90 tablet 1 5 Active polyethylene glycol, PEG, 3350 (Glycolax) 17 GM/SCOOP powderIndications: Constipation, unspecified constipation type STIR 17GM INTO 8 OUNCES OF WATER, OR JUICE, AND DRINK DAILY NEEDED / DIRECTED 510 g 2 5 Active Active Problems Problem Noted Date [...] the area. Plan: - Consider referral to laminating press operator for further evaluation and possible treatment [...] results from previous visits to [facility] and [facility]. Anal pruritus 07/04/2023 Assessment & Plan (09/18/2024 8:20 AM EDT): Patient reports rectal itching. Differential diagnoses include hemorrhoids, skin tags, or other anorectal conditions. Plan: - Prescribed Anusol cream for topical application to affected area Chronic has followup w/ GI History of Helicobacter pylori infection 023 Overview (02/08/2023): Previously followed by [facility] - Dr. Hidalgo (last available consult [...] avoid excessive sugar intake, particularly while in [place] Assessment & Plan (08/28/2024 10:04 AM EDT): [...] protein consumption - Recommend consultation with a stereoptician (patient previously advised but found it difficult to follow recommendations) Obesity 12/05/2020 Assessment & Plan (02/13/2024 8:05 PM EST): Discussed calorie deficit, recommended reduction of 20-30% of maintenance calories; stereoptician referral offered. Recommended to decrease soda and sugary beverage consumption. Recommended at least 20 g per meal of protein to assist with satiety. Recommended at least 150 min/week of moderate intensity exercise. H. pylori infection 08/10/2018 Chronic abdominal pain 01/11/2018 Overview (02/07/2024): Added automatically from request for surgery [id number] Assessment & Plan (08/28/2024 10:06 AM EDT): Diffuse abdominal pain associated with rectal wetness, reports also intolerance to pork meat. At this moment, refer to GI. He has had endoscopies & colonoscopies done in [facility]. Pure hypercholesterolemia 10/08/2015 Encounters Date Type Department Care Team Description 12/15/2024 Refill [facility] [address] [place] [address] Claudia Wilcox MD Constipation, unspecified constipation type 11/17/2024 Refill [facility] [address] [place] [address] Claudia Wilcox MD 10/30/2024 Orders Only GENERIC [...] Care Team (Late st Contact Info) Description 03/15/2025 2:15 PM EST Office Visit [facility] [address] [place] [address] Zeb Robb Health Maintenance Due Date Last Done Comments [...] X-Ray: Bitewings 08/01/2025 08/01/19 25, 07/21/2023, 07/01/2022 Tobacco Screening 08/24/2025 08/24/2024 Diabetes: Hemoglobin A1C 12/21/2025 025, 08/24/2024, 08/01/2023, Additional history exists FIT DNA/Cologuard 07/06/2026 07/07/2023 Dental X-Ray: Full [...] Procedure Name Priority Date/Time Associated Diagnosis Comments HEMOGLOBIN A1C Routine 12/21/2024 4:35 PM EDT TSH W/REFLEX TO FT4 Routine 12/21/2024 4 :35 PM EDT Numbness and tingling of both feet VITAMIN B12/FOLATE, SERUM PANEL Routine 12/21/2024 4:35 PM EDT Numbness and tingling of both feet HEPATITIS B SURFACE ANTIGEN, EIA Routine 12/21/2024 4:35 PM EDT Encounter for immunization HEPATITIS B SURFACE ANTIBODY, QUALITATIVE Routine 12/21/2024 4:35 PM EDT Encounter for immunization HEPATITIS B CORE AB TOTAL Routine 12/21/2024 4:35 PM EDT Encounter for immunization URINALYSIS WITH REFLEX MICROSCOPIC Routine 12/21/2024 4:27 PM EDT TSH W/REFLEX TO FT4 Routine 10/30/2024 4 :27 PM EDT LIPASE Routine 10/30/2024 4:27 PM EDT AMYLASE Routine 10/30/2024 4:27 PM EDT COMPREHENSIVE METABOLIC PANEL Routine 10/30/2024 4:27 PM EDT CBC WITH AUTO DIFFERENTIAL Routine 10/30/2024 4:27 PM EDT PROPHYLAXIS - ADULT Routine 07/31/2024 [...] Recently Relevant to Health Maintenance Results * Vitamin B12 (Cobalamin) and Folate Panel, Serum (12/21/2024 4:35 PM EDT) Vitamin B12 486 200 - 900 pg/mL [facility] Comment:NORMAL 200-900 PG/ML INDETERMINATE 160-199 PG/ML DEFICIENT < 160 PG/ML Folate 10.9 > or = 4.0 ng/mL [facility] Comment:Reference Values:> o r = 4.0 ng/mL< 4.0 ng/mL suggests folate deficiency Methotrexate, aminopterin and folinic acid(leucovorin) are chemotherapeutic agents whose molecularstructures are similar to folate; therefore, the Architectfolate assay cannot be used for patients using these drugs. Blood Venous blood specimen / Unknown 12/21/2024 4:35 PM EDT 12/21/2024 4:35 PM EDT Claudia Wilcox MD LAB BLOOD ORDERABLES Final Re sult Performing Organization Address City/[facility]/ZIP Co de Phone Number [facility] [address] [place] [phone] * TSH W/Reflex to FT4 (12/21/2024 4:35 PM EDT) Only the most recent of2 resultswithin the time period is included. TSH reflex Free T4 2.76 0.32 - 4.0 uIU/mL [facility] Blood Venous blood specimen / Unknown 12/21/2024 4:35 PM EDT 12/21/2024 4:35 PM EDT Claudia Wilcox MD LAB BLOOD ORDERABLES Final Re sult Performing Organization Address City/[facility]/ZIP Co de Phone Number [facility] [address] [place] [phone] * Hepatitis B surface antigen, EIA (12/21/2024 4:35 PM EDT) Hepatitis B Surface Ag Negative Negative [facility] Blood Venous blood specimen / Unknown 12/21/2024 4:35 PM EDT 12/21/2024 4:35 PM EDT Claudia Wilcox MD LAB BLOOD ORDERABLES Final Re sult Performing Organization Address City/[facility]/ZIP Co de Phone Number [facility] [address] [place] [address] [phone] * Hepatitis B Core Antibody, Total (12/21/2024 4:35 PM EDT) Hepatitis B Core Antibody Nonreactive Nonreactive [facility] Blood Venous blood specimen / Unknown 12/21/2024 4:35 PM EDT 12/21/2024 4:35 PM EDT Claudia Wilcox MD LAB BLOOD ORDERABLES Final Re sult Performing Organization Address [facility] Co de Phone Number [facility] [address] [place] [phone] * Hepatitis B Surface Antibody, Qualitative (12/21/2024 4:35 PM EDT) ~Hepatitis B Surface Antibody NONREACTIVE Nonreactive [facility] Comment:Nonreactive: < 8.00 mIU/mL Blood Venous blood specimen / Unknown 12/21/2024 4:35 PM EDT 12/21/2024 4:35 PM EDT Claudia Wilcox MD LAB BLOOD ORDERABLES Final Re sult Performing Organization Address [facility] de Phone Number [facility] [address] [place] [phone] * (ABNORMAL) Hemoglobin A1c (12/21/2024 4:35 PM EDT) Hemoglobin A1c 6.2(H) <6.0 % [facility] Comment:Hemoglobin A1C Refer ence Range Adults: 4.8 - 6.0 % Non diabetic: < 6.0 % Goal: < 7.0 %Additional Action Suggested: > 8.0 %Note: Hemoglobin A1c results are invalid for patients with abnormal amounts of HbF. Blood transfusions may impact the HbA1c concentration in the patient sample. Estimated Average Glucose 131 mg/dL [facility] Comment:eAG = Estimated ave rage glucose which is %A1C expressed asaverage glucose, using the formula of the Z3V-PixsehiVikyoyi Glucose study (ADAG), Diabetes Care, Vol.31,#8,Nov. 2007 12/21/2024 4:35 PM EDT 12/21/2024 4:35 PM EDT Generic External Data Provider LAB BLOOD ORDERAB LES Final Result Performing Organization Address [facility] Co de Phone Number [facility] [address] [place] [address] [phone] * Urinalysis w/reflex microscopic (12/21/2024 4:27 PM EDT) Color Urine Yellow [facility] Appearance Urine Clear [facility] PH 7.0 5.0 - 9.0 [facility] Glucose Urine UA Negative Negative mg/dL [facility] Urine Blood Negative Negative [facility] Specific [place] - Urine <=1.005 1.005 - 1.025 [facility] Urine Protein Negative Neg-Trace mg/dL [facility] Urine Ketones Negative Negative mg/dL [facility] Nitrite Urine Negative Negative [facility] Leukocyte Esterase Urine Negative Negative [facility] 12/21/2024 4:27 PM EDT 12/21/2024 4:57 PM EDT Narrative [facility] - 12/21/2024 5:04 PM EDT [id number], Clean Catch Generic External Data Provider LAB URINE ORDERAB LES Final Result Performing Organization Address [facility] Co de Phone Number [facility] [address] [place] [phone] * (ABNORMAL) CBC auto differential (10/30/2024 4:27 PM EDT) White Blood Count 7.9 4.8 - 10.8 X10*3/uL [facility] Red Blood Count 4.59(L) 4.60 - 5.80 X10*6/uL [facility] Hemoglobin 14.3 14.0 - 18.0 g/dl [facility] Hematocrit 40.1(L) 42.0 - 52.0 % [facility] Mean Corpuscular Volume 87.4 80.0 - 98.0 fL [facility] Mean Corpuscular Hemoglobin 31.2 27.0 - 33.0 pg [facility] Mean Corpuscular HGB Conc 35.7 31.0 - 36.0 g/dl [facility] Red Cell Distribution Width 12.8 11.0 - 16.0 % [facility] Platelet Count 192 160 - 400 X10*3/uL [facility] Mean Platelet Volume 9.8 9.4 - 12.4 fL [facility] Neutrophils Percent Auto 63.3 45 - 73 % [facility] Imm Gran Pct Auto 0.4 0.0 - 0.4 % [facility] Lymphocytes Percent Auto 29.0 20 - 40 % [facility] Monocytes Percent Auto 5.9 2 - 11 % [facility] Eosinophils Percent Auto 0.8 0 - 4 % [facility] Basophils Percent Auto 0.6 0 - 2 % [facility] NRBC Pct Auto 0.0 0.0 - 0.2 /100WBC [facility] Neutrophils Absolute Auto 5.0 2.0 - 8.3 x10*3/uL [facility] Imm Gran Abs Auto 0.03 0.00 - 0.03 X10*3/uL [facility] Lymphocytes Absolute Auto 2.3 1.2 - 4.9 X10*3/uL [facility] Monocytes Absolute Auto 0.5 0.1 - 1.2 X10*3/uL [facility] Eosinophils Absolute Auto 0.1 0.0 - 0.4 X10*3/uL [facility] Basophils Absolute Auto 0.1 0.0 - 0.2 X10*3/uL [facility] NRBC Abs Auto 0.000 0.0 - 0.012 X10*3/uL [facility] 10/30/2024 4:27 PM EDT 10/30/2024 4:28 PM EDT us Generic External Data Provider LAB BLOOD ORDERAB LES Final Result [facility] [address] [place] [phone] * Lipase (10/30/2024 4:27 PM EDT) Pathologist [facility] Lipase 16 8 - 78 U/L [facility] 10/30/2024 4:27 PM EDT 10/30/2024 4:28 PM EDT Generic External Data Provider LAB BLOOD ORDERAB LES Final Result Performing Organization Address City/[facility]/ZIP Co de Phone Number [facility] [address] [place] [phone] * Amylase (10/30/2024 4:27 PM EDT) Pathologist [facility] Amylase 54 28 - 100 U/L [facility] 10/30/2024 4:27 PM EDT 10/30/2024 4:28 PM EDT Generic External Data Provider LAB BLOOD ORDERAB LES Final Result Performing Organization Address [facility] Co de Phone Number [facility] [address] [place] [address] [phone] * (ABNORMAL) Comprehensive Metabolic Panel (10/30/2024 4:27 PM EDT) Pathologist [facility] Sodium 140 135 - 145 mmol/L [facility] Potassium 3.8 3.3 - 5.1 mmol/L [facility] Chloride 101 96 - 108 mmol/L [facility] Carbon Dioxide 30(H) 22 - 29 mmol/L [facility] Anion Gap 13 12 - 20 [facility] Urea Nitrogen (BUN) 15 9 - 16 mg/dL [facility] Creatinine, Serum 0.75 0.5 - 1.4 mg/dL [facility] Estimated Glomerular Filt Rate >60 [facility] Comment:Chronic Kidney Disea se: Estimated GFR < 60 mL/min/1.14z8Llfekc Kidney Disease: Estimated GFR < 15 mL/min/1.73m2 Glucose 97 60 - 115 mg/dL [facility] Calcium 9.5 8.4 - 10.2 mg/dL [facility] Bilirubin, Total 0.5 0.0 - 1.0 mg/dL [facility] Aspartate Amino Transferase 30 5 - 37 U/L [facility] Alanine Aminotransferase 54(H) 0 - 40 U/L [facility] Total Protein 8.0 6.5 - 8.0 g/dL [facility] Albumin Level 4.8 3.5 - 5.0 g/dL [facility] Alkaline Phosphatase 96 39 - 117 U/L [facility] 10/30/2024 4:27 PM EDT 10/30/2024 4:28 PM EDT us Generic External Data Provider LAB BLOOD ORDERAB LES Final Result Performing Organization Address [facility] Co de Phone Number [facility] [address] [place] [phone] * Hepatitis C Antibody with Reflex to HCV, RNA, Quantitative, Real-Time PCR (02/09/2024 1:14 PM EST) Hepatitis C Antibody Nonreactive Nonreactive [facility] Comment:Antibodies to HCV no t detected; does not exclude early acuteHCV infection. Blood Venous blood specimen / Unknown 02/09/2024 1:14 PM EST 02/09/2024 2:50 PM EST us Claudia Wilcox MD LAB BLOOD ORDERABLES Final Re sult Performing Organization Address [facility] Co de Phone Number [facility] [address] [place] [phone] * HIV-1/2 Antigen and Antibodies, Fourth Generation, with Reflexes (02/09/2024 1:14 PM EST) HIV AB/AG Nonreactive Nonreactive [facility] Comment:HIV-1 p24 Ag and/or HIV-1/HIV-2 Ab not detected.A test result that is nonreactive does not exclude thepossibility of exposure to or infection with HIV-1 and/orHIV-2. Nonreactive results in this assay for individualswith prior exposure to HIV-1 and/or HIV-2 may be due toantigen and antibody levels that are below the limit ofdetection of this assay.The PLUMgridniLIQVID HIV Ag/Ab Combo assay result andsupplemental assay results should be interpreted inconjunction with the patient's clinical presentation,history and other laboratory results. If the results areinconsistent with clinical evidence, additional testing issuggested to confirm the result. Blood Venous blood specimen / Unknown 02/09/2024 1:14 PM EST 02/09/2024 2:50 PM EST us Claudia Wilcox MD LAB BLOOD ORDERABLES Final Re sult [facility] [address] [place] [address] [phone] * (ABNORMAL) Lipid Panel, Standard (02/09/2024 1:14 PM EST) Triglycerides 120 <150 mg/dL [facility] Comment:Desirable Triglyceri de: less than 150 mg/dLBorderline High Triglyceride 150-199 mg/dLHigh Triglyceride: 200-499 mg/dLVery High Triglyceride: greater than or equal to 5OO mg/dL Cholesterol 219(H) <200 mg/dL [facility] Comment:Desirable Cholestero l: less than 200 mg/dLBorderline High Cholesterol: 200-239 mg/dLHigh Cholesterol: greater than 239 mg/dL LDL Cholesterol Calculated 149(H) <100 mg/dL [facility] Comment:Desirable LDL: less than 100 mg/dLNear Optimal/Above Optimal LDL: 110- 129 mg/dLBorderline High LDL: 130-159 mg/dLHigh LDL: 160-189 mg/dLVery High LDL: greater than or equal to 190 mg/dL HDL Cholesterol 46 >40 mg/dL [facility] Comment:Desirable HDL: great er than 40 mg/dL Note: This HDL assay may give artificially low results in patients with liver disease. Blood Venous blood specimen / Unknown 02/09/2024 1:14 PM EST 02/09/2024 2:50 PM EST Claudia Wilcox MD LAB BLOOD ORDERABLES Final Re sult [facility] [address] [place] [address] [phone] * Hm Colonoscopy (12/14/2023 11:50 AM EDT) Historical Provider HEALTH MAINTENANCE Final Result * Cologuard?? colon cancer screening (07/07/2023 9:08 PM EDT) Pathologist [facility] Cologuard Result Negative Negative 07/14/19 8:34 PM EDT [facility] (CLIA #:[id number]) Comment: NEGATIVE TEST RESULT. A negative Cologuard [...] Alston et al, N Engl J Med 2014;370(14):7406-0265) The normal value (reference range) for this assay is negative. COLOGUARD RE-SCREENING RECOMMENDATION: Periodic colorectal cancer screening is an important part of preventive healthcare for asymptomatic individuals at average risk for colorectal cancer. Following a negative Cologuard result, the [place] Cancer Society and U.S. Multi-Society Task Force screening guidelines recommend a Cologuard re-screening interval of 3 years. References: [place] Cancer Society Guideline for Colorectal Cancer Screening: https://www.cancer.org/cancer/smfvy-afukso-svwaku/unhkktpjz-dfwvoxtth-oqelbwi/ac s-rec ommendations.html.; Jacob Carreno CR, Wanda RaoK, Colorectal Cancer Screening: Recommendations for Physicians and Patients from the U.S. Multi-Society Task Force on Colorectal Cancer Screening , Am J Gastroenterology 2017; 112:0559-7567. TEST DESCRIPTION: Composite algorithmic analysis of stool [...] (Meche Pagan al, N Engl J Med 2014;370(14):4847-2580.) Cologuard may produce a false negative or false positive result (no colorectal cancer or precancerous polyp present at colonoscopy follow up). A negative Cologuard test result does not guarantee the absence of CRC or advanced adenoma (pre-cancer). The current Cologuard screening interval is every 3 years. ([place] Cancer Society and U.S. Multi-Society Task Force). Cologuard performance data in a 10,000 patient pivotal study using colonoscopy as the reference method can be accessed at the following location: www.[employer].Heyo/results. Additional description of the Cologuard test process, warnings and precautions can be found at www.Get Togetherrd.com. Stool specimen (specimen) 07/07/2023 9:08 PM EDT 07/09/2023 11:39 AM EDT us Claudia Wilcox MD LAB MOLECULAR DIAGNOSTICS ORD ERABLES Final Result [facility] (CLIA #:[id number]) [address] [place] [address], [place] [phone] from Last 3 Months or Most Recently Relevant to Health Maintenance Insurance [facility] - HSN FULL (MEDICAID) Care Teams Medical Services Assistant Relationship Specialty Start Date End Date Claudia Wilcox MD [address] [place] [phone] PCP - General Family Medicine 11/29/23
--- OUTSIDE RECORDS SUMMARY | 2025-01-30 08:20 | XMS_ITS | Encounter Summary ---
Author Organization [facility] Address [address] [place] [address] Care Team Providers Care Gaming Cage Cashier Name Role Phone Siena Dumas Primary Care Provider [phone] Encounter Details Date Type Department Care Team (Latest Contact Info) Description 08/08/2023 Transcribe Orders [facility] Physician Referral Services [address] [place] [address] Siena Dumas [address] [place] [address] Hemorrhoids, unspecified hemorrhoid type (Primary Dx) Social [...] Primary documented in this encounter Care Teams Gaming Cage Cashier Relationship Specialty Start Date End Date Siena Dumas [address] [place] [address] PCP - General Family Medicine 10/21/17 documented as of this encounter
--- OUTSIDE RECORDS SUMMARY | 2025-01-30 08:20 | XMS_ITS | Encounter Summary ---
Author Organization [email or web address] Address [address] [facility] 7t [place] [address] Care Team Providers Care Care Associate Name Role Phone Siena Dumas MD Primary Care Provider [phone] Claudia Wilcox MD Primary Care Provider [phone] Reason for Visit * Reason Onset Date Comments FYI 11/24/2023 Encounter Details Date Type Department Care Team ([facility] st Contact Info) Description 11/24/2023 Telephone [facility] [address] [place] [address] Siena Dumas MD [address] [place], [place] [phone] FYI Social History Tobacco Use Types Packs/Day [...] 11/24/2023 8:37 AM EDT Donald Lynch at [facility] colon and rectal surgery calling to report after reviewing the notes had seen some incidental findings that should be communicated between the provider and patient Cris will be faxing over the documents documented in this encounter Plan of Treatment Upcoming Encounters Date Type Department Care Team (Late st Contact Info) Description 03/15/2025 2:15 PM EST Office Visit [facility] [address] [place] [address] Zeb Robb documented as of this encounter Visit Diagnoses Not on filedocumented in this encounter Additional Health Concerns Assessment Noted Time PHQ-9 Depression Total Score: 0 06/23/19 23 10:10 AM EDT documented as of this encounter Care Teams Care Associate Relationship Specialty Start Date End Date Siena Dumas MD [address] [place] [address] PCP - General Family Medicine 12/18/12 11/28/23 Claudia Wilcox MD [address] [place] [address] PCP - General Family Medicine 11/29/23 documented as of this encounter
--- OUTSIDE RECORDS SUMMARY | 2025-01-30 08:21 | XMS_ITS | Encounter Summary ---
Author Organization [facility] Address [address] [facility] [address] [place] [address] Care Team Providers Care Animal Husbandry Technician Name Role Phone Siean Dumas MD Primary Care Provider [phone] Claudia Wilcox MD Primary Care Provider [phone] Encounter Details Date Type Department Care Team (Latest Contact Info) Description 03/07/2019 Abstract [facility] CONVERSIONS Dental, Provider, DDS Social History Tobacco [...] Description 03/15/2025 2:15 PM EST Office Visit [facility] [address] [place] [address] Zeb Robb documented as of this encounter Visit Diagnoses Not on filedocumented in this encounter Care Teams Animal Husbandry Technician Relationship Specialty Start Date End Date Siena Dumas MD [address] [place] [address] PCP - General Family Medicine 12/18/12 11/28/23 Claudia Wilcox MD [address] [place] [address] PCP - General Family Medicine 11/29/23 documented as of this encounter
--- OUTSIDE RECORDS SUMMARY | 2025-01-30 08:21 | XMS_ITS | Encounter Summary ---
Author Organization [employer] Address [address] [facility] [address]t [place] [address] Care Team Providers Care Air Brush Operator Name Role Phone Claudia Wilcox MD Primary Care Provider [phone] Encounter Details Date Type Department Care Team (Late st Contact Info) Description 12/14/2023 Orders Only [facility] [address] [place] [address] Provider, MD Emily Social History Tobacco Use [...] Description 03/15/2025 2:15 PM EST Office Visit [facility] [address] [place] [address] Zeb Robb documented as of this encounter Procedures Procedure [...] documented as of this encounter Care Teams Air Brush Operator Relationship Specialty Start Date End Date Claudia Wilcox MD [address] [place] [address] PCP - General Family Medicine 11/29/23 documented as of this encounter
--- OUTSIDE RECORDS SUMMARY | 2025-01-30 08:21 | XMS_ITS | Encounter Summary ---
Author Organization [employer] Address [address] [facility] 7[address] [place] [address] Care Team Providers Care Research Project Manager Name Role Phone Claudia Wilcox MD Primary Care Provider [phone] Reason for Visit * Reason Onset Date Comments Appointment Request 12/27/2023 Encounter Details Date Type Department Care Team ([facility] st Contact Info) Description 12/27/2023 Telephone [facility] MEDICINE [address] [place] [address] Claudia Wilcox MD [address] [place], [place] [phone] Appointment Request Social History Tobacco Use Types [...] t he electric, gas, oil or water Travolver threatened to shut off services in your [...] Description 03/15/2025 2:15 PM EST Office Visit [facility] ADULT DENTAL [address] [place] [address] Zeb Robb documented as of this encounter Visit Diagnoses Not on filedocumented in this encounter Additional Health Concerns Assessment Noted Time PHQ-9 Depression Total Score: 0 06/23/19 23 10:10 AM EDT documented as of this encounter Care Teams Research Project Manager Relationship Specialty Start Date End Date Claudia Wilcox MD [address] [place] [id number] PCP - General Family Medicine 11/29/23 documented as of this encounter
--- OUTSIDE RECORDS SUMMARY | 2025-01-30 08:21 | XMS_ITS | Clinical Summary ---
Author Organization [facility] Address [address] [place] [address] Care Team Providers Care Catalyst Supervisor Name Role Phone Siena Dumas Primary Care Provider [phone] Allergies No known active allergies Medications omeprazole (PriLOSEC) 20 mg capsule Take 20 mg by mouth daily. 5 8 Active simvastatin (ZOCOR) 10 mg tablet Take 10 mg by mouth every evening. 3 8 Active bismuth subsalicylate (PEPTO BISMOL) 262 mg/15 mL suspension Take 15 mL by mouth as needed for diarrhea (only when needed - not regularly). Active ARTIFICIAL TEARS,LR-HDHV-RHBX , 1-0.2-0.2 % drops 0 Active ibuprofen (MOTRIN) 800 mg tablet Take 800 mg by mouth 3 times a day. 0 Active aspirin chewable tablet 81 mg Chew and swallow 81 mg by mouth once a day. Active Active Problems Problem Noted Date Diagnosed Date H. pylori infection 08/10/2018 Chronic abdominal pain 01/11/2018 Overview (01/11/2018): Added automatically from request for surgery [id number] Social History Tobacco Use Types Packs/Day Years [...] Completed 12/10/2020, 12/10/2020 Procedures * Due to [place] state law, this organization might not be sharing negative HIV tests. Procedure Name Priority Date/Time Associated Diagnosis Comments COLONOSCOPY 12/14/2023 from Last 3 Months or Most Recently Relevant to Health Maintenance Results * Due to [place] state law, this organization might not be sharing negative HIV tests. * COLONOSCOPY (12/14/2023) Narrative Procedure Note Ana Zapata, - 12/14/2023 8:35 AM EDT [facility] Gastroenterology Patient Name: Irvin Loomis Procedure Date: [...] by the physician, the nurse and the analytical technician in the endoscopy suite. Mental Status [...] and oxygen saturations were monitored continuously. [id number] was introduced through the anus andadvanced to [...] specimen was done by the nurse and analytical technician. Estimated blood loss was minimal. The [...] Most Recently Relevant to Health Maintenance Insurance [facility] HSNO/FREE CARE Advance Directives * Full Code (Latest Code Status on File) Date Activated Date Inactivated Comments 12/14/2023 8:50 AM 12/14/2023 12:40 PM Care Teams Catalyst Supervisor Relationship Specialty Start Date End Date Siena Dumas [address] [place] [id number] PCP - General Family Medicine 10/21/17
--- OUTSIDE RECORDS SUMMARY | 2025-01-30 08:21 | XMS_ITS | Encounter Summary ---
Author Organization [employer] Address [address] [facility] 7[address] [place] [address] Care Team Providers Care Certified Detention Deputy Name Role Phone Siena Dumas MD Primary Care Provider [phone] Claudia Wilcox MD Primary Care Provider [phone] Encounter Details Date Type Department Care Team (Latest Contact Info) Description 03/06/2020 Abstract [facility] CONVERSIONS Dental, Provider, DDS Social History [...] Description 03/15/2025 2:15 PM EST Office Visit [facility]ULT [facility] [address] [place] [address] Zeb Robb documented as of this encounter Visit Diagnoses Not on filedocumented in this encounter Care Teams Certified Detention Deputy Relationship Specialty Start Date End Date Siena Dumas MD [address] [place] [address] PCP - General Family Medicine 12/18/12 11/28/23 Claudia Wilcox MD [address] [place] [address] PCP - General Family Medicine 11/29/23 documented as of this encounter
--- OUTSIDE RECORDS SUMMARY | 2025-01-30 08:21 | XMS_ITS | Encounter Summary ---
Author Organization [facility] Address [address] [place] [address] Care Team Providers Care Anglesmith Helper Name Role Phone Siena Dumas Primary Care Provider [phone] Encounter Details Date Type Department Care Team (Late st Contact Info) Description 11/17/2023 Orders Only [facility] Interventional Radiology [address] [place] [address] Иван Lepe MD [address] [place], [place] [phone] Social History Tobacco Use Types Packs/Day Years [...] on filedocumented in this encounter Care Teams Anglesmith Helper Relationship Specialty Start Date End Date Siena Dumas [address] [place] [address] PCP - General Family Medicine 10/21/17 documented as of this encounter
--- OUTSIDE RECORDS SUMMARY | 2025-01-30 08:21 | XMS_ITS | Encounter Summary ---
Author Organization [employer] Address [address] [facility] 7[address] [place] [address] Care Team Providers Care Shoe Folder Name Role Phone Siena Dumas MD Primary Care Provider [phone] Claudia Wilcox MD Primary Care Provider [phone] Encounter Details Date Type Department Care Team (Late st Contact Info) Description 11/24/2023 Orders Only [facility] [address] [place] [address] Provider, MD Emily Social History Tobacco Use [...] [facility] ADULT D[facility] [address] [place] [address] Zeb Robb documented as of this encounter Procedures Procedure Name Priority Date/Time Associated Diagnosis Comments CT ABDOMEN PELVIS W CONTRAST Routine 11/23/2023 9:08 AM EDT documented in this encounter Results * CT Abdomen Pelvis w/ Contrast (11/23/2023 9:08 AM EDT) Anatomical Region Laterality Modality Body, Pelvis, Abdomen Computed T omography Historical Provider MD [facility] CT PROCEDURES Final R esult documented in this encounter Visit Diagnoses Not on filedocumented in this encounter Additional Health Concerns Assessment Noted Time PHQ-9 Depression Total Score: 0 06/23/19 23 10:10 AM EDT documented as of this encounter Care Teams Shoe Folder Relationship Specialty Start Date End Date Siena Dumas MD [address] [place] [address] PCP - General Family Medicine 12/18/12 11/28/23 Claudia Wilcox MD [address] [place] [address] PCP - General Family Medicine 11/29/23 documented as of this encounter
== END ==
LOC: HO.NUCMED 08:08
PROVIDERS: PCP Family Medicine; Visit Provider Nurse Practitioner
DX: R11.2 Nausea with vomiting, unspecified (principal)
CPT/HCPCS: 78264; A9541

== ENCOUNTER → 2025-01-30 08:10 | Outpatient (BNV) | payer OTHER, SELFPAY | PROVIDERS: PCP Family Medicine; Visit Provider Radiology Diagnostic Radiology | DX: R11.2 Nausea with vomiting, unspecified (principal) | CPT/HCPCS: 78264 ==

== ENCOUNTER 2025-03-08 14:57 | Outpatient (AMB) | payer OTHER, SELFPAY ==
--- NOTE | 2025-03-08 15:22 | A.OFFVIS_ITS ---
Vital Signs 03/08/25 15:53 Height 5 ft 4 in Weight 185 lb 10.067 oz BMI 31.9 BP 129/81 Blood Pressure Location Lt brachial Position Sitting Pulse 85 Intake Visit Reasons: 4wk Intake Note: Patient in office today in follow up for gastric emptying study. CC: Patient c/o stomach burning, and rectal burning and itching. Transport Aide Required: Yes Allergies No Known Allergies Allergy (Verified 12/21/24 15:42) HPI HPI 4wk: Details: Assessment & Plan (1) Chronic idiopathic constipation: Code(s): K59.04 - Chronic idiopathic constipation Category: Medical (2) Abdominal bloating: Code(s): R14.0 - Abdominal distension (gaseous) Category: Medical (3) Rectal pain: Code(s): K62.89 - Other specified diseases of anus and rectum Category: Medical (4) GERD (gastroesophageal reflux disease): Code(s): K21.9 - Gastro-esophageal reflux disease without esophagitis Category: Medical Plan [place] Citizen #[place]io [place] She says that he has all of the medications, the Amitiza, the simethicone, and the dicyclomine but it has not made a difference in his generalized feeling of burning particularly in the lower abdomen as he describes it today. Frequently it is periumbilical. However his biggest concern, as he can continues to perseverate, is on his feeling of wetness and burning in the rectum. He notes that this is worse when he has to move his bowels and I tried to explain, especially since he is having itching as well, that this is usually a sign of hemorrhoids. He then objects saying that he is not bleeding, I tell him that just because you have hemorrhoids does not mean they necessarily we are going to bleed. However, in the past he has had no success with utilization of hemorrhoid creams. I have also given him a trial of gjut-hjo-dhqmhjp Calmoseptine cream to see if this gave him any rectal soothing but it did not. So far as his bloating the gastric emptying study is upcoming. He is prediabetic with an A1c above 6 so it is possible he has some delay in gastric emptying affecting the bloating piece of the symptomatology. He is really focused on having another study to address his rectal concerns. I have done a full rectal exam and cultured the rectal area without finding any significant problems. I think will try sending him to General surgery for a hemorrhoid evaluation as they do in office proctoscope exams. It is somewhat clumsy being that he had a recent colonoscopy but it was done at [facility], apparently they did not have any significant findings. Return office visit after the gastric emptying study GASTRIC EMPTYING STUDY 01/30/25 IMPRESSION: Normal 4-hour solid food gastric emptying study. TODAYS VISIT [place] Citizen #V live [facility] Medical History Gastritis HTN (hypertension) Surgical History H/O esophagogastroduodenoscopy H/O wisdom tooth extraction H/O colonoscopy Family History Brother Cancer Social History Alcohol intake: former Comment: Occasionally in the past Patient Tobacco Use Status: Never used Tobacco Physical Exam Vital Signs: Last Vital Signs Pulse 85 03/08/25 15:53 BP 129/81 03/08/25 15:53 BMI result Body Mass Index 31.9 Results Reviewed Results Reviewed: GASTRIC EMPTYING STUDY 01/30/25 IMPRESSION: Normal 4-hour solid food gastric emptying study. Assessment & Plan Assessment & Plan (1) Abdominal cramping: Code(s): R10.9 - Unspecified abdominal pain Category: Medical Plan [place] #V live Amitiza, the simethicone, and the dicyclomine Subjective Patient presents for follow-up of chronic abdominal burning and cramping with intermittent constipation. Reports frequent burning sensation and abdominal discomfort; describes daily anal/perianal burning. States constipation improved over the last 3?4 days after taking prescribed medications and was able to have bowel movements. Reports the blue pill (dicyclomine) is bitter and not helpful. Continues omeprazole and simethicone; has been taking simethicone four times daily (often two in the morning and two in the evening). Notes prior trial of Linzess caused diarrhea; currently on Amitiza (lubiprostone) and confirms use. Patient voiced concern about ?gastritis,? but I explained symptoms are more consistent with irritable bowel. Relevant Past Medical, Social, and Family History History consistent with irritable bowel symptoms; prior intolerance to Linzess due to diarrhea; currently using lubiprostone. Objective - Gastric emptying study: Normal. Assessment & Plan Irritable bowel with cramping and constipation: Clinical picture most consistent with irritable bowel rather than gastritis. Gastric emptying study normal. Ongoing abdominal burning/cramping with constipation responsive to current bowel regimen; daily anal/perianal burning persists. - Discontinue dicyclomine (blue pill). - Start a IMIPRAMINE 10 mg at bedtime with 24-hour efficacy commonly used for irritable bowel?related cramping; discussed that although originally developed as an antidepressant, it is being used here for IBS symptoms. - Continue Amitiza (lubiprostone); plan to provide supply to allow two capsules in the morning and two in the evening as needed per discussion. he was on 8 micro g and the next step up his 24 micro g and frequently patients are in between doses so to hit the 16 micro g dosing we need to have to 8 micro g pills twice a day. - Continue omeprazole. - Continue simethicone as previously used. - Education provided regarding medication changes; wrote down In [place] which medication to stop and which to add. - Follow up in 8 weeks. Medications: New imipramine HCl 10 mg PO BEDTIME 30 tabs 6RF 30 days R10.9 - Unspecified abdominal pain Changed From lubiprostone (Amitiza) 8 mcg PO BID 60 caps 6RF K59.04 - Chronic idiopathic constipation To lubiprostone (Amitiza) 16 mcg (2 x 8 mcg) PO BID 120 caps 6RF K59.04 - Chronic idiopathic constipation Discontinued dicyclomine Discontinued Reason: Doctor's Order 20 mg PO QID 30 days 120 tabs 6RF Coding Level of Care Code Est Pt Level 3 (84989) Diagnoses Abdominal cramping R10.9
[2025-03-08 15:53] VITALS: BP 129/81; PULSE 85; BMI 31.9
--- OUTSIDE RECORDS SUMMARY | 2025-03-08 19:03 | XMS_ITS | Encounter Summary ---
Author Organization [facility] Address [address] [place] [address] Care Team Providers Care Remote Operations Producer Name Role Phone Siena Dumas Primary Care Provider [phone] Encounter Details Date Type Department Care Team (Latest Contact Info) Description 08/08/2023 Transcribe Orders [facility] Physician Referral Services [address] [place] [address] Siena Dumas [address] [place] [address] Hemorrhoids, unspecified hemorrhoid type (Primary Dx) Social [...] Primary documented in this encounter Care Teams Remote Operations Producer Relationship Specialty Start Date End Date Siena Dumas [address] [place] [address] PCP - General Family Medicine 10/21/17 documented as of this encounter
--- OUTSIDE RECORDS SUMMARY | 2025-03-08 19:03 | XMS_ITS | Encounter Summary ---
Author Organization [employer] Address [address] [facility] [address] [place] [address] Care Team Providers Care Inking Machine Tender Name Role Phone Siena Dumas MD Primary Care Provider [phone] Claudia Wilcox MD Primary Care Provider [phone] Encounter Details Date Type Department Care Team (Latest Contact Info) Description 03/06/2020 Abstract [facility] CONVERSIONS Dental, Provider, DDS Social [...] 2:15 PM EST Office Visit [facility] ADULT DENT[facility] [address] [place] [address] Zeb Robb documented as of this encounter Visit Diagnoses Not on filedocumented in this encounter Care Teams Inking Machine Tender Relationship Specialty Start Date End Date Siena Dumas MD [address] [place] [address] PCP - General Family Medicine 12/18/12 11/28/23 Claudia Wilcox MD [address] [place] [address] PCP - General Family Medicine 11/29/23 documented as of this encounter
--- OUTSIDE RECORDS SUMMARY | 2025-03-08 19:03 | XMS_ITS | Clinical Summary ---
Author Organization [employer] Address [address] [facility] [address] [place] [address] Care Team Providers Care Treater Helper Name Role Phone Claudia Wilcox MD Primary Care Provider [phone] Allergies No known active allergies Medications acetaminophen [...] AND VOMITING 20 tablet 09/27/19 24 Active bismuth subsalicylate (Pepto-Bismol) 262 MG/15ML [...] . 60 tablet 2 02/09/20 24 Active hydrocortisone (Anusol-HC) 2.5 % rectal creamIndications: [...] DIRECTED 510 g 2 12/19/19 25 Active hydroCHLOROthiazi de (HYDRODiuril) 25 MG tablet TAKE ONE TABLET EVERY MORNING 90 tablet 3 5 3:55 PM EST 02/14/20 25 Active Aspirin Adult Low Strength 81 MG EC tabletIndications :Primary hypertension TAKE ONE TABLET EVERY MORNING 90 tablet 1 5 3:55 PM EST 02/14/20 25 Active simvastatin (Zocor) 10 MG tabletIndications :Hypercholesterol emia TAKE ONE TABLET AT BEDTIME 90 tablet 1 5 3:55 PM EST 02/14/20 25 Active omeprazole (PriLOSEC) [address] capsuleIndication s:GERD without esophagitis TAKE ONE CAPSULE DAILY 90 capsule 1 5 3:55 PM EST 02/14/20 25 Active IBU 800 MG tabletIndications :Pain TAKE ONE TABLET THREE TIMES DAILY 90 tablet 3 02/21/20 25 Active hydroCHLOROthiazi de (HYDRODiuril) 25 MG tablet TAKE ONE TABLET EVERY MORNING 90 tablet 3 12/21/19 24 025 Discontinued ibuprofen 800 MG tabletIndications :Pain TAKE ONE TABLET THREE TIMES DAILY 90 tablet 3 06/20/19 25 025 Discontinued omeprazole (PriLOSEC) [address] capsuleIndication s:GERD without esophagitis TAKE ONE CAPSULE EVERY DAY 90 capsule 1 08/16/19 25 025 Discontinued simvastatin (Zocor) 10 MG tabletIndications :Hypercholesterol emia TAKE ONE TABLET AT BEDTIME 90 tablet 1 08/16/19 25 025 Discontinued aspirin (Aspirin Adult Low Strength) 81 MG EC tabletIndications :Primary hypertension TAKE ONE TABLET BY MOUTH EVERY MORNING 90 tablet 1 08/16/19 25 025 Discontinued Active Problems Problem Noted [...] the area. Plan: - Consider referral to paper cap machine operator for further evaluation and possible [...] obtain test results from previous visits to [facility] and [facility]. Anal pruritus 07/04/2023 Assessment & Plan (09/18/2024 8:20 AM EDT): Patient reports rectal itching. Differential diagnoses include hemorrhoids, skin tags, or other anorectal conditions. Plan: - Prescribed Anusol cream for topical application to affected area Chronic has followup w/ GI History of Helicobacter pylori infection 023 Overview (02/08/2023): Previously followed by [facility] GI - Dr. Hidalgo (last available consult [...] avoid excessive sugar intake, particularly while in [place] Assessment & Plan (08/28/2024 10:04 AM EDT): [...] protein consumption - Recommend consultation with a stucco applicator (patient previously advised but found it difficult to follow recommendations) Obesity 12/05/2020 Assessment & Plan (02/13/2024 8:05 PM EST): Discussed calorie deficit, recommended reduction of 20-30% of maintenance calories; stucco applicator referral offered. Recommended to decrease soda and sugary beverage consumption. Recommended at least 20 g per meal of protein to assist with satiety. Recommended at least 150 min/week of moderate intensity exercise. H. pylori infection 08/10/2018 Chronic abdominal pain 01/11/2018 Overview (02/07/2024): Added automatically from request for surgery [id number] Assessment & Plan (08/28/2024 10:06 AM EDT): Diffuse abdominal pain associated with rectal wetness, reports also intolerance to pork meat. At this moment, refer to GI. He has had endoscopies & colonoscopies done in [facility]. Pure hypercholesterolemia 10/08/2015 Encounters Date Type Department Care Team Description 02/19/2025 Refill [facility] [address] [place] [address] Brayan Robb MD Pain 02/13/2025 Refill [facility] [address] [place] [address] Claudia Wilcox MD Primary hypertension; Hypercholesterolemia; GERD without esophagitis 01/30/2025 Orders Only [facility] External Provider, [facility] 12/15/2024 Refill [facility] [address] [place] [address] Claudia Wilcox MD Constipation, unspecified constipation type from Last 3 Months Immunizations Immunization Administration [...] Description 03/15/2025 2:15 PM EST Office Visit [facility] [address] [place] [address] Zeb Robb Health Maintenance Due Date Last Done Comments CT Colonography 1974 FIT 1974 Sigmoidoscopy 1974 Disability Screening 1974 Alcohol/Substance Use Screening 1986 Family Planning (PISQ) 1989 Hepatitis B Vaccines (1 of 3 - 19+ 3-dose series) 1993 FOBT 07/06/2024 07/07/2023 COVID-19 Vaccine ( season) 2024 03/18/2021, 07/14/2020, 06/16/2020 Influenza Vaccine (#1) 2024 , 02/07/2023, 02/05/2022, Additional history exists Dental Oral Exam 01/31/2025 07/31/2024 Dental Prophylaxis 01/31/2025 07/31/2024, 1 , 07/21/2023 Depression Screening 02/08/2025 02/09/2024, 02/09/20 24 SDOH [...] Procedure Name Priority Date/Time Associated Diagnosis Comments NM GASTRIC EMPTYING SOLID Routine 01/30/2025 8:28 AM EDT HEMOGLOBIN A1C Routine 12/21/2024 4:35 PM EDT [...] REFLEX MICROSCOPIC Routine 12/21/2024 4:27 PM EDT PROPHYLAXIS - ADULT Routine 07/31/2024 3:00 PM EDT BITEWINGS - [...] Recently Relevant to Health Maintenance Results * NM Gastric Emptying Solid (01/30/2025 8:28 AM EDT) Anatomical Region Laterality Modality Body Nuclear Medicine 01/30/2025 8:28 AM EDT Narrative 01/30/2025 12:56 PM EDT [address] [address] Nuclear Medicine Report Signed Patient: Irvin Levi MR#: [id number] : 1975 Acct:[id number] Age/Sex: 49 / M ADM Date: 01/30/25 Loc: [facility] Attending Dr: Bhakti SCHULER Ordering Physician: Bhakti Kidd Date of Service: 01/30/25 Procedure(s): NM gastric emptying study Accession Number(s): [id number] cc: Bhakti Kidd; Claudia Wilcox MD Reason for Exam: R11.2 - Nausea with vomiting, unspecified EXAMINATION: NM RADIONUCLIDE SOLID FOOD GASTRIC EMPTYING 4-HOUR STUDY CLINICAL INFORMATION: R11.2 - Nausea with vomiting, unspecified COMPARISON: There are no prior studies available for comparison. TECHNIQUE: A standard meal consisting of 4 oz of Egg Beaters brand tagged with 0.98 mCi Tc-99m Sulfur Colloid, 4 oz water and 1 slice of toast with jelly was administered orally to the patient. Images were obtained using a dual head gamma camera in the anterior and posterior projections over of the stomach immediately post ingestion and at hourly intervals up to 4 hours post ingestion. The anterior and posterior counts at each time interval were averaged using the geometric mean and expressed as percentage of the immediate post ingestion counts. FINDINGS: There is visualization of activity in the stomach immediately post ingestion. As the study progresses, there is clearance of activity from the stomach and visualization of progressively increasing small bowel activity. By the end of the study, there is almost no retention noted in the stomach. Retention in the stomach at each time interval was: 1 hour 70% (normal 37%-90%) 2 hours 52% (normal 30%-60%) 3 hours 27% 4 hours 9% (normal 0%-10%) NM/NM gastric emptying study IMPRESSION: Normal 4-hour solid food gastric emptying study. For solid meal, rapid gastric emptying is less than 30% at 60 minutes. Delayed gastric emptying criteria is more than 60% remaining at 120 minutes or more than 10% at 240 minutes. The 4-hour value is the best discriminator of a normal or abnormal result). Gastric emptying study grading per JNMT Consensus Recommendations in 2008 (https://tech.snmjournals.org/content/36/44) Grade 1 (mild retention): 11-20% at 4h Grade 2 (moderate retention): 21-35% at 4h Grade 3 (severe retention): 36-50% at 4h Grade 4 (very severe retention): >50% retention at 4h Electronically signed by: Terell Douglas MD 01/30/2025 12:53 PM EDT RP Dictated By: Terell Douglas MD Signed By: <Electronically signed by Terell Douglas MD in OV> 01/30/25 1253 DD/ 0828 TD/TT: 01/30/25 1245 Cd Reactor Operator: Procedure Note Donotuseinterpreter, Image - 01/30/2025 [place] [address] Nuclear Medicine Report Signed Patient: Siva Levi#: [id number] : 1975Acct:[id number] Age/Sex: 49 / MADM Date: 01/30/25 Loc: [facility] Attending Dr: Bhakti SCHULER Ordering Physician: Bhakti Kidd Date of Service: 01/30/25 Procedure(s): NM gastric emptying study Accession Number(s): [id number] cc: Bhakti iKdd; Claudia Wilcox MD Reason for Exam: R11.2 - Nausea with vomiting, unspecified EXAMINATION: NM RADIONUCLIDE SOLID FOOD GASTRIC EMPTYING 4-HOUR STUDY CLINICAL INFORMATION: R11.2 - Nausea with vomiting, unspecified COMPARISON: There are no prior studies available for comparison. TECHNIQUE: A standard meal consisting of 4 oz of Egg Beaters brand tagged with 0.98 mCi Tc-99m Sulfur Colloid, 4 oz water and 1 slice of toast with jelly was administered orally to the patient. Images were obtained using a dual head gamma camera in the anterior and posterior projections over of the stomach immediately post ingestion and at hourly intervals up to 4 hours post ingestion. The anterior and posterior counts at each time interval were averaged using the geometric mean and expressed as percentage of the immediate post ingestion counts. FINDINGS: There is visualization of activity in the stomach immediately post ingestion. As the study progresses, there is clearance of activity from the stomach and visualization of progressively increasing small bowel activity. By the end of the study, there is almost no retention noted in the stomach. Retention in the stomach at each time interval was: 1 hour 70% (normal 37%-90%) 2 hours 52% (normal 30%-60%) 3 hours 27% 4 hours 9% (normal 0%-10%) NM/SC gastric emptying study IMPRESSION: Normal 4-hour solid food gastric emptying study. For solid meal, rapid gastric emptying is less than 30% at 60 minutes. Delayed gastric emptying criteria is more than 60% remaining at 120 minutes or more than 10% at 240 minutes. The 4-hour value is the best discriminator of a normal or abnormal result). Gastric emptying study grading per JNMT Consensus Recommendations in 2008 (https://tech.snmjournals.org/content/36/1/44) Grade 1 (mild retention): 11-20% at 4h Grade 2 (moderate retention): 21-35% at 4h Grade 3 (severe retention): 36-50% at 4h Grade 4 (very severe retention): >50% retention at 4h Electronically signed by: Terell Douglas MD 01/30/2025 12:53 PM EDT Dictated By: Terell Douglas MD Signed By: <Electronically signed by Terell Doulgas MD in OV> 01/30/25 1253 DD/ 0828 TD/TT: 01/30/25 1245 Cd Reactor Operator: [facility] External Provider IMG NM PROCEDURES Final Result * Vitamin B12 (Cobalamin) and Folate Panel, Serum (12/21/2024 4:35 PM EDT) Vitamin B12 486 200 - 900 pg/mL [facility] Comment:NORMAL 200-900 PG/ML INDETERMINATE 160-199 PG/ML DEFICIENT < 160 PG/ML Folate 10.9 > or = 4.0 ng/mL [facility] Comment:Reference Values:> o r = [...] ORDERABLES Final Re sult Performing Organization Address [facility] Co de Phone Number [facility] [address] [place] [phone] * TSH W/Reflex to FT4 (12/21/2024 4:35 PM EDT) TSH reflex Free T4 2.76 0.32 - 4.0 uIU/mL [facility] Blood Venous blood specimen / Unknown 12/21/2024 4:35 PM EDT 12/21/2024 4:35 PM EDT Claudia Wilcox MD LAB BLOOD ORDERABLES Final Re sult Performing Organization Address [facility] Co de Phone Number [facility] [address] [place] [phone] * Hepatitis B surface antigen, EIA (12/21/2024 4:35 PM EDT) Hepatitis B Surface Ag Negative Negative [facility] Blood Venous blood specimen / Unknown 12/21/2024 4:35 PM EDT 12/21/2024 4:35 PM EDT Claudia Wilcox MD LAB BLOOD ORDERABLES Final Re sult Performing Organization Address [facility] Co de Phone Number [facility] [address] [place] [address] [phone] * Hepatitis B Core Antibody, Total (12/21/2024 4:35 PM EDT) Pathologist [facility] Hepatitis B Core Antibody Nonreactive Nonreactive [facility] Blood Venous blood specimen / Unknown 12/21/2024 4:35 PM EDT 12/21/2024 4:35 PM EDT Claudia Wilcox MD LAB BLOOD ORDERABLES Final Re sult Performing Organization Address City/[facility]/ZIP Co de Phone Number [facility] [address] [place] [phone] * Hepatitis B Surface Antibody, Qualitative (12/21/2024 4:35 PM EDT) Pathologist [facility] ~Hepatitis B Surface Antibody NONREACTIVE Nonreactive [facility] Comment:Nonreactive: < 8.00 mIU/mL Blood Venous blood specimen / Unknown 12/21/2024 4:35 PM EDT 12/21/2024 4:35 PM EDT Claudia Wilcox MD LAB BLOOD ORDERABLES Final Re sult Performing Organization Address City/[facility]/ZIP Co de Phone Number [facility] [address] [place] [phone] * (ABNORMAL) Hemoglobin A1c (12/21/2024 4:35 PM EDT) [facility] Hemoglobin A1c 6.2(H) <6.0 % [facility] Comment:Hemoglobin A1C Refer ence Range Adults: 4.8 - 6.0 % Non diabetic: < 6.0 % Goal: < 7.0 %Additional Action Suggested: > 8.0 %Note: Hemoglobin A1c results are invalid for patients with abnormal amounts of HbF. Blood transfusions may impact the HbA1c concentration in the patient sample. Estimated Average Glucose 131 mg/dL [facility] Comment:eAG = Estimated ave rage glucose which is %A1C expressed asaverage glucose, using the formula of the Z5F-WjfwkkkXwemfzl Glucose study (ADAG), Diabetes Care, Vol.31,#8,Nov. 2007 12/21/2024 4:35 PM EDT 12/21/2024 4:35 PM EDT Generic External Data Provider LAB BLOOD ORDERAB LES Final Result Performing Organization Address [facility]/ZIP Co de Phone Number [facility] [address] [place] [phone] [phone] * Urinalysis w/reflex microscopic (12/21/2024 4:27 PM EDT) Color Urine Yellow [facility] Appearance Urine Clear [facility] PH 7.0 5.0 - 9.0 [facility] Glucose Urine UA Negative Negative mg/dL [facility] Urine Blood Negative Negative [facility] Specific [place] - Urine <=1.005 1.005 - 1.025 [facility] Urine Protein Negative Neg-Trace mg/dL [facility] Urine Ketones Negative Negative mg/dL [facility] Nitrite Urine Negative Negative [facility] Leukocyte Esterase Urine Negative Negative [facility] 12/21/2024 4:27 PM EDT 12/21/2024 4:57 PM EDT Narrative [facility] - 12/21/2024 5:04 PM EDT [id number], [employer] Generic External Data Provider LAB URINE ORDERAB LES Final Result Performing Organization Address [facility]/ZIP Co de Phone Number [facility] [address] [place] [phone] * Hepatitis C Antibody with Reflex to HCV, RNA, Quantitative, Real-Time PCR (02/09/2024 1:14 PM EST) Hepatitis C Antibody Nonreactive Nonreactive [facility] Comment:Antibodies to HCV no t detected; does not exclude early acuteHCV infection. Blood Venous blood specimen / Unknown 02/09/2024 1:14 PM EST 02/09/2024 2:50 PM EST Claudia Wilcox MD LAB BLOOD ORDERABLES Final Re sult Performing Organization Address [facility] Co de Phone Number [facility] [address] [place] [phone] * HIV-1/2 Antigen and Antibodies, Fourth Generation, with Reflexes (02/09/2024 1:14 PM EST) HIV AB/AG Nonreactive Nonreactive [facility] Comment:HIV-1 p24 Ag and/or HIV-1/HIV-2 Ab not detected.A test result that is nonreactive does not exclude thepossibility of exposure to or infection with HIV-1 and/orHIV-2. Nonreactive results in this assay for individualswith prior exposure to HIV-1 and/or HIV-2 may be due toantigen and antibody levels that are below the limit ofdetection of this assay.The [employer] HIV Ag/Ab Combo assay result andsupplemental assay results should be interpreted inconjunction with the patient's clinical presentation,history and other laboratory results. If the results areinconsistent with clinical evidence, additional testing issuggested to confirm the result. Blood Venous blood specimen / Unknown 02/09/2024 1:14 PM EST 02/09/2024 2:50 PM EST Claudia Wilcox MD LAB BLOOD ORDERABLES Final Re sult Performing Organization Address [facility]/ZIP Co de Phone Number [facility] [address] [place] [address] [phone] * (ABNORMAL) Lipid Panel, Standard (02/09/2024 1:14 PM EST) Triglycerides 120 <150 mg/dL [facility] Comment:Desirable Triglyceri de: less than 150 mg/dLBorderline High Triglyceride 150-199 mg/dLHigh Triglyceride: 200-499 mg/dLVery High Triglyceride: greater than or equal to 5OO mg/dL Cholesterol 219(H) <200 mg/dL [facility] Comment:Desirable Cholestero l: less than 200 mg/dLBorderline High Cholesterol: 200-239 mg/dLHigh Cholesterol: greater than 239 mg/dL LDL Cholesterol Calculated 149(H) <100 mg/dL [facility] Comment:Desirable LDL: less than 100 mg/dLNear Optimal/Above Optimal LDL: 110- 129 mg/dLBorderline High LDL: 130-159 mg/dLHigh LDL: 160-189 mg/dLVery High LDL: greater than or equal to 190 mg/dL HDL Cholesterol 46 >40 mg/dL [facility] Comment:Desirable HDL: great er than 40 mg/dL Note: This HDL assay may give artificially low results in patients with liver disease. Blood Venous blood specimen / Unknown 02/09/2024 1:14 PM EST 02/09/2024 2:50 PM EST Claudia Wilcox MD LAB BLOOD ORDERABLES Final Re sult [facility] [address] [place] [phone] * Colonoscopy (12/14/2023 11:50 AM EDT) Historical Provider HEALTH MAINTENANCE Final Result * Cologuard?? colon cancer screening (07/07/2023 9:08 PM EDT) Cologuard Result Negative Negative 07/14/19 24 8:34 PM EDT [facility] (CLIA #:[id number]) Comment: NEGATIVE TEST RESULT. A negative Cologuard [...] (Meche Pagan al, N Engl J Med 2014;370(14):1190-4995) The normal value (reference range) for this assay is negative. COLOGUARD RE-SCREENING RECOMMENDATION: Periodic colorectal cancer screening is an important part of preventive healthcare for asymptomatic individuals at average risk for colorectal cancer. Following a negative Cologuard result, the [place] [employer] Society and U.S. Multi-Society Task Force screening guidelines recommend a Cologuard re-screening interval of 3 years. References: [place] [employer] Guideline for Colorectal Cancer Screening: https://www.cancer.org/cancer/strgi-uscsrl-yaflnv/ienlmofed-dgfaiwdwh-fiueffq/ac s-rec ommendations.html.; Lev DK, Jacob ADAMS, Wanda RaoK, Colorectal Cancer Screening: Recommendations for Physicians and Patients from the U.S. Multi-Society Task Force on Colorectal Cancer Screening , Am J Gastroenterology 2017; 112:3028-2006. TEST DESCRIPTION: Composite algorithmic analysis of stool [...] colonoscopy. (Meche Hernandez, N Engl J Med 2014;370(14):0711-0550.) Cologuard may produce a false negative or false positive result (no colorectal cancer or precancerous polyp present at colonoscopy follow up). A negative Cologuard test result does not guarantee the absence of CRC or advanced adenoma (pre-cancer). The current Cologuard screening interval is every 3 years. ([place] [employer] Society and U.S. Multi-Society Task Force). Cologuard performance data in a 10,000 patient pivotal study using colonoscopy as the reference method can be accessed at the following location: www.[employer]/results. Additional description of the Cologuard test process, warnings and precautions can be found at www.cologuard.com. Stool specimen (specimen) 07/07/2023 9:08 PM EDT 07/09/2023 11:39 AM EDT Claudia Wilcox MD LAB MOLECULAR DIAGNOSTICS ORD ERABLES Final Result [facility] (CLIA #:[id number]) [address] [place] [address], from Last 3 Months or Most Recently Relevant to Health Maintenance [place] [place] [address] DENTAL - HSN FULL (MEDICAID) Care Teams Treater Helper Relationship Specialty Start Date End Date lCaudia Wilcox MD [address] [place] [phone] PCP - General Family Medicine 11/29/23
--- OUTSIDE RECORDS SUMMARY | 2025-03-08 19:03 | XMS_ITS | Encounter Summary ---
Author Organization [employer] Address [address] [facility] [address] [place] [address] Care Team Providers Care Copy Camera Operator Name Role Phone Siena Dumas MD Primary Care Provider Claudia Wilcox MD Primary Care Provider Encounter Details Date Type Department Care Team (Latest Contact Info) Description 03/07/2019 Abstract [facility] CONVERSIONS Dental, Provider, DDS Social History [...] 2:15 PM EST Office Visit [facility] [address] [place] [address] Zeb Robb documented as of this encounter Visit Diagnoses Not on filedocumented in this encounter Care Teams Copy Camera Operator Relationship Specialty Start Date End Date Siena Dumas MD [address] [place] [address] PCP - General Family Medicine 12/18/12 11/28/23 Claudia Wilcox MD [address] [place] [address] PCP - General Family Medicine 11/29/23 documented as of this encounter
--- OUTSIDE RECORDS SUMMARY | 2025-03-08 19:03 | XMS_ITS | Encounter Summary ---
Author Organization [employer] Address [address] [facility] [address] [place] [address] Care Team Providers Care Paint Pourer Name Role Phone Siena Dumas MD Primary Care Provider [phone] Claudia Wilcox MD Primary Care Provider [phone] Reason for Visit * Reason Onset Date Comments FYI 11/24/2023 Encounter Details Date Type Department Care Team ([facility] st Contact Info) Description 11/24/2023 Telephone [facility] [address] [place] [address] Siena Dumas MD [address] [place], [place] [phone] FYI Social History Tobacco Use Types Packs/Day [...] 11/24/2023 8:37 AM EDT Donald Lynch at [facility] colon and rectal surgery calling to report after reviewing the notes had seen some incidental findings that should be communicated between the provider and patient Cris will be faxing over the documents documented in this encounter Plan of Treatment Upcoming Encounters Date Type Department Care Team (Late st Contact Info) Description 03/15/2025 2:15 PM EST Office Visit [facility] ADULT [facility] [address] [place] [address] Zeb Robb documented as of this encounter Visit Diagnoses Not on filedocumented in this encounter Additional Health Concerns Assessment Noted Time PHQ-9 Depression Total Score: 0 06/23/19 23 10:10 AM EDT documented as of this encounter Care Teams Paint Pourer Relationship Specialty Start Date End Date Siena Dumas MD [address] [place] [address] PCP - General Family Medicine 12/18/12 11/28/23 Claudia Wilcox MD [address] [place] [address] PCP - General Family Medicine 11/29/23 documented as of this encounter
--- OUTSIDE RECORDS SUMMARY | 2025-03-08 19:03 | XMS_ITS | Encounter Summary ---
Author Organization [facility] Address [address] [place] [address] Care Team Providers Care Medical Customer Service Representative Name Role Phone Siena Dumas Primary Care Provider [phone] Encounter Details Date Type Department Care Team (Late st Contact Info) Description 11/17/2023 Orders Only [facility] Interventional Radiology [address] [place] [address] Иван Lepe MD [address] [place], [place] [id number] Social History Tobacco Use Types Packs/Day Years [...] on filedocumented in this encounter Care Teams Medical Customer Service Representative Relationship Specialty Start Date End Date Siena Dumas [address] [place] [address] PCP - General Family Medicine 10/21/17 documented as of this encounter
--- OUTSIDE RECORDS SUMMARY | 2025-03-08 19:03 | XMS_ITS | Clinical Summary ---
Author Organization [facility] Address [address] [place] [address] Care Team Providers Care Bridge Ironworker Name Role Phone Siena Dumas Primary Care Provider [phone] Allergies No known active allergies Medications omeprazole (PriLOSEC) 20 mg capsule Take 20 mg by mouth daily. 5 8 Active simvastatin (ZOCOR) 10 mg tablet Take 10 mg by mouth every evening. 3 8 Active bismuth subsalicylate (PEPTO BISMOL) 262 mg/15 mL suspension Take 15 mL by mouth as needed for diarrhea (only when needed - not regularly). Active ARTIFICIAL TEARS,ED-RISX-FRST , 1-0.2-0.2 % drops 0 Active ibuprofen (MOTRIN) 800 mg tablet Take 800 mg by mouth 3 times a day. 0 Active aspirin chewable tablet 81 mg Chew and swallow 81 mg by mouth once a day. Active Active Problems Problem Noted Date Diagnosed Date H. pylori infection 08/10/2018 Chronic abdominal pain 01/11/2018 Overview (01/11/2018): Added automatically from request for surgery [id number] Social History Tobacco Use Types Packs/Day Years [...] Health Maintenance Due Date Last Done Comments Hepatitis C Screening 1974 Hepatitis B Vaccines (1 of 3 - 19+ 3-dose series) 1993 Alcohol/Substance Use Screening 04/04/2024 Depression Screening and Follow-Up 04/04/2024 Social Drivers of Health Juliet ual Screening 04/04/2024 Pneumococcal Vaccine: 50+ Ye ars (1 of 1 - PCV) 2024 Zoster Vaccines (1 of 2) 2024 Influenza Vaccine (#1) 2024 3, 02/05/2022, 01/05/2021, Additional history exists COVID-19 Vaccine (2024-2 6 season) 2024 03/18/2021, 07/14/2020, 06/16/2020 DTaP,Tdap,and Td Vaccines (3 - Td or Tdap) 01/18/2027 01/18/2017, 10/08/2015 Colonoscopy 12/13/2028 12/14/2023, 12/03, 12/14/2023 HIV Screening Completed 12/10/2020, 12/10/2020 Procedures * Due to [place] abcdexperts law, this organization might not be sharing negative HIV tests. Procedure Name Priority Date/Time Associated Diagnosis Comments COLONOSCOPY 12/14/2023 from Last 3 Months or Most Recently Relevant to Health Maintenance Results * Due to [place] abcdexperts law, this organization might not be sharing negative HIV tests. * COLONOSCOPY (12/14/2023) Narrative Procedure Note Ana Zapata, DO - 12/14/2023 8:35 AM EDT [facility] Patient Name: Bryan Citalan Procedure Date: 12/14/2023 8:35 AM Date of [...] by the physician, the nurse and the mobile battery technician in the endoscopy suite. Mental Status [...] and oxygen saturations were monitored continuously. [id number] was introduced through the anus andadvanced to [...] specimen was done by the nurse and mobile battery technician. Estimated blood loss was minimal. The [...] 0 Note Initiated On: 12/14/2023 8:35 AM Anakirstie Gutierres Jodi DO PROVATION PROCEDURES Final Result from Last 3 Months or Most Recently Relevant to Health Maintenance Insurance [facility] HS/FREE CARE Advance Directives * Full Code (Latest Code Status on File) Date Activated Date Inactivated Comments 12/14/2023 8:50 AM 12/14/2023 12:40 PM Care Teams Bridge Ironworker Relationship Specialty Start Date End Date Siena Dumas [address] [place] [id number] PCP - General Family Medicine 10/21/17
--- OUTSIDE RECORDS SUMMARY | 2025-03-08 19:03 | XMS_ITS | Encounter Summary ---
Author Organization [employer] Address [address] [facility] [address] [place] [address] Care Team Providers Care Rn Angiography Name Role Phone Claudia Wilcox MD Primary Care Provider [phone] Reason for Visit * Reason Onset Date Comments Appointment Request 12/27/2023 Encounter Details Date Type Department Care Team ([facility] st Contact Info) Description 12/27/2023 Telephone [facility] MEDICINE [address] [place] [address] Claudia Wilcox MD [address] [place], [place] [id number] Appointment Request Social History Tobacco Use Types [...] t he electric, gas, oil or water [employer] threatened to shut off services in your [...] Description 03/15/2025 2:15 PM EST Office Visit [facility] ADULT DENTAL [address] [place] [address] Zeb Robb documented as of this encounter Visit Diagnoses Not on filedocumented in this encounter Additional Health Concerns Assessment Noted Time PHQ-9 Depression Total Score: 0 06/23/19 23 10:10 AM EDT documented as of this encounter Care Teams Rn Angiography Relationship Specialty Start Date End Date Claudia Wilcox MD [address] [place] [id number] PCP - General Family Medicine 11/29/23 documented as of this encounter
--- OUTSIDE RECORDS SUMMARY | 2025-03-08 19:03 | XMS_ITS | Encounter Summary ---
Author Organization [employer] Address [address] [facility] [address] [place] [address] Care Team Providers Care Latent Print Examiner Name Role Phone Siena Dumas MD Primary Care Provider [phone] Claudia Wilcox MD Primary Care Provider [phone] Encounter Details Date Type Department Care Team (Late st Contact Info) Description 11/24/2023 Orders Only [facility] [address] [place] [address] Provider, MD Emily Social History Tobacco Use [...] Description 03/15/2025 2:15 PM EST Office Visit [facility] ADULT DENTAL [address] [place] [address] Zeb Robb documented as of this encounter [...] documented as of this encounter Care Teams Latent Print Examiner Relationship Specialty Start Date End Date Siena Dumas MD [address] [place] [address] PCP - General Family Medicine 12/18/12 11/28/23 Claudia Wilcox MD [address] [place] [address] PCP - General Family Medicine 11/29/23 documented as of this encounter
--- OUTSIDE RECORDS SUMMARY | 2025-03-08 19:03 | XMS_ITS | Encounter Summary ---
Author Organization [employer] Address [address] [facility] [address] [place] [address] Care Team Providers Care Success Coach Name Role Phone Claudia Wilcox MD Primary Care Provider [phone] Encounter Details Date Type Department Care Team (Late st Contact Info) Description 12/14/2023 Orders Only [facility] MED & PEDS [address] [place] [address] Provider, MD Emily Social History Tobacco Use [...] Description 03/15/2025 2:15 PM EST Office Visit [facility] ADULT DENTAL [address] [place] [address] Zeb Robb documented as of this encounter [...] documented as of this encounter Care Teams Success Coach Relationship Specialty Start Date End Date Claudia Wilcox MD [address] [place] [address] PCP - General Family Medicine 11/29/23 documented as of this encounter
== END 2025-03-08 16:45 | disposition home or self-care (01) ==
LOC: HO.HGI 14:58
PROVIDERS: PCP Family Medicine; Visit Provider Nurse Practitioner
DX: R10.9 Unspecified abdominal pain (principal)
CPT/HCPCS: 99213

== ENCOUNTER → 2025-03-08 14:57 | Outpatient (BNVA) | payer OTHER, SELFPAY | PROVIDERS: PCP Family Medicine; Visit Provider Nurse Practitioner | DX: K21.9 Gastro-esophageal reflux disease without esophagitis (principal); R10.9 Unspecified abdominal pain; K59.04 Chronic idiopathic constipation; R14.0 Abdominal distension (gaseous) | CPT/HCPCS: 99212 ==